=== PATIENT | female | born 1945 | race Caucasian/White ===

== ENCOUNTER → 2019-05-20 13:34 | Outpatient (BNVA) | payer MEDICARE, OTHER, SELFPAY | PROVIDERS: Family Provider Family Medicine; PCP Family Medicine; Visit Provider Internal Medicine Rheumatology | DX: L40.59 Other psoriatic arthropathy (principal); Z23 Encounter for immunization; G89.29 Other chronic pain; M15.9 Polyosteoarthritis, unspecified; Z79.899 Other long term (current) drug therapy; L40.0 Psoriasis vulgaris; M79.7 Fibromyalgia | CPT/HCPCS: 36415; G0008; 80053; 85007; 85027; 90471; 90662; 99214 ==

== ENCOUNTER → 2019-05-29 13:24 | Outpatient (BNVA) | payer MEDICARE, OTHER, SELFPAY | PROVIDERS: Family Provider Family Medicine; PCP Family Medicine; Visit Provider Nurse Practitioner Family | DX: R35.0 Frequency of micturition (principal); H61.20 Impacted cerumen, unspecified ear; N30.00 Acute cystitis without hematuria | CPT/HCPCS: 81003; 87077; 87086; 87186 ==

== ENCOUNTER → 2019-09-15 13:25 | Outpatient (BNVA) | payer MEDICARE, OTHER, SELFPAY | PROVIDERS: Family Provider Family Medicine; PCP Family Medicine; Visit Provider Internal Medicine Rheumatology | DX: Z79.899 Other long term (current) drug therapy (principal); M19.90 Unspecified osteoarthritis, unspecified site | CPT/HCPCS: 80076; 82565; 85025; 85651; 86140; 86480; 86704; 86803; 87340 ==

== ENCOUNTER → 2019-10-30 13:45 | Outpatient (BNVA) | payer MEDICARE, OTHER, SELFPAY | PROVIDERS: Family Provider Family Medicine; PCP Family Medicine; Visit Provider Family Medicine | DX: D64.9 Anemia, unspecified (principal); E11.620 Type 2 diabetes mellitus with diabetic dermatitis; L30.4 Erythema intertrigo | CPT/HCPCS: 83036; 85025 ==

== ENCOUNTER → 2019-11-27 11:55 | Outpatient (BNVA) | payer MEDICARE, OTHER, SELFPAY | PROVIDERS: Family Provider Family Medicine; PCP Family Medicine; Visit Provider Family Medicine | DX: D64.9 Anemia, unspecified (principal); E11.620 Type 2 diabetes mellitus with diabetic dermatitis; E66.01 Morbid (severe) obesity due to excess calories | CPT/HCPCS: 85025 ==

== ENCOUNTER → 2020-01-21 15:49 | Outpatient (BNVA) | payer MEDICARE, OTHER, SELFPAY | PROVIDERS: Family Provider Family Medicine; PCP Family Medicine; Visit Provider Family Medicine | DX: M06.09 Rheumatoid arthritis without rheumatoid factor, multiple sites (principal); Z11.59 Encounter for screening for other viral diseases; Z79.899 Other long term (current) drug therapy | CPT/HCPCS: 36415; 80053; 84550; 85025; 86704; 86803; 87340 ==

== ENCOUNTER → 2020-03-08 14:30 | Outpatient (BNVA) | payer MEDICARE, OTHER, SELFPAY | PROVIDERS: Family Provider Family Medicine; PCP Family Medicine; Visit Provider Internal Medicine Rheumatology | DX: L40.50 Arthropathic psoriasis, unspecified (principal); D64.9 Anemia, unspecified; Z79.899 Other long term (current) drug therapy; E66.01 Morbid (severe) obesity due to excess calories; J84.9 Interstitial pulmonary disease, unspecified; L40.0 Psoriasis vulgaris; M19.90 Unspecified osteoarthritis, unspecified site; Z68.41 Body mass index [BMI] 40.0-44.9, adult; M79.7 Fibromyalgia; M81.0 Age-related osteoporosis without current pathological fracture | CPT/HCPCS: 99214 ==

== ENCOUNTER 2020-03-11 18:31 | Inpatient (IN) | payer MEDICARE, OTHER, SELFPAY ==
[2020-03-11] VITALS (8 sets, daily range): BP systolic 127–164; BP diastolic 59–130; PULSE 65–83; RESP 16–18; TEMP 36.3–36.9; O2SAT 18–100; BMI 41.6
--- NOTE | 2020-03-11 19:14 | XR_ITS ---
WS: [id number] Exam: XR chest 1V portable [id number] Date/Time of Exam: 03/11/2020 7:24 PM Reason For Exam: GI bleed Comparison 08/22/2017. There are mild infiltrates in the middle and lower lung zones bilaterally suspicious for pneumonia. T he heart is top limits of normal size. Hiatal hernia noted. The lungs are fully expanded. No pleural effusions. The mediastinum and bony thorax are unremarkable. XR/XR chest 1V portable [id number] IMPRESSION: 1. Mild infiltrates in the mid and lower lung zones bilaterally suspicious for pneumonia.
--- NOTE | 2020-03-11 19:35 | CTR_ITS ---
PROCEDURE INFORMATION: Exam: CT Angiography Abdomen and Pelvis With Contrast Exam date and time: 03/11/2020 8:31 PM Age: 74 years old Clinical indication: Abdominal pain; Localized; Left lower quadrant (llq); Prior surgery; Surgery type: Appy, gb, hyst; Additional info: Gi bleed TECHNIQUE: Imaging protocol: Computed tomographic angiography of the abdomen and pelvis with intravenous contrast material. 3D rendering (Not supervised by radiologist): MIP and/or 3D reconstructed images were created by the technologist. Radiation optimization: All CT scans at this facility use at least one of these dose optimization techniques: automated exposure control; mA and/or kV adjustment per patient size (includes targeted exams where dose is matched to clinical indication); or iterative reconstruction. Contrast material: VISI 320; Contrast volume: 95 ml; Contrast route: INTRAVENOUS (IV); COMPARISON: CT abdomen pelvis w con* [id number] 01/16/2017 12:31 PM RADIATION DOSE METRICS: Total DLP (mGy-cm): 1614.21 FINDINGS: Lungs: There are moderate emphysematous changes. Unchanged moderate interstitial fibrosis. There is mild peripheral honeycombing in the lung bases. There is mild ground-glass opacity in the lung bases less prominent than the prior exam compatible with improving pneumonitis or mild interstitial CHF. Heart: The heart is enlarged. Mediastinal space: A large hiatal hernia is present. Aorta: The aorta demonstrates mild atherosclerotic calcification. There is no aortic aneurysm. Celiac trunk and mesenteric arteries: No occlusion or significant stenosis. Renal arteries: No occlusion or significant stenosis. Right iliac arteries: No occlusion or significant stenosis. Left iliac arteries: No occlusion or significant stenosis. Liver: No mass. Gallbladder and bile ducts: There has been a cholecystectomy. There is no common bile duct dilation. Pancreas: Unremarkable. No mass. No ductal dilation. Spleen: Unremarkable. No splenomegaly. Adrenals: Unremarkable. No mass. Kidneys and ureters: There is no evidence of hydronephrosis. There is a nonobstructive 4 mm calculus midpole right kidney. Stomach and bowel: There is no evidence of intestinal perforation or obstruction. Moderate diverticulosis is present in the distal colon. No active GI bleed or extravasation of contrast is identified. There is no evidence of colitis/diverticulitis. Appendix: There has been an appendectomy. Intraperitoneal space: Unremarkable. No free air. No significant fluid collection. Lymph nodes: There is unchanged adenopathy in the azagoesophageal recess with a lymph node measuring 1.7 cm in short axis image 19. Urinary bladder: The bladder is decompressed. Reproductive: There has been a hysterectomy. Bones/joints: There are moderate degenerative changes in the spine and pelvis. No acute abnormality. Soft tissues: Unremarkable. CT/CT angio abdomen pelvis [id number] IMPRESSION: 1. No active GI bleed or extravasation of contrast is identified. 2. No bowel thickening or inflammatory changes. No acute abnormality. Radiation Dose CTDIVOL = (mGy): DLP = 1614.21 (mGy-cm)
--- NOTE | 2020-03-11 19:40 | W.ED.GIBLEED ---
HPI - GI Bleed General: Chief complaint: GI Bleed Stated complaint: blood hemoglobin 4% Time Seen by Provider: 03/11/20 19:17 Source: patient Mode of arrival: ambulatory Limitations: no limitations History of Present Illness: HPI Narrative: Patient has noticed melena stools for about 4 or 5 months now and today she noticed some red streaks in her stool. She has been feeling gradually weaker and weaker with loss of energy and she states that her park interpreter asked her to get a CBC done today as she has had a hemoglobin trending down. In her PCPs office her hemoglobin was 4.9 and she was sent to the emergency department to be seen. The patient has vague abdominal pain, no nausea or vomiting. She denies any fever. No chest pain. She has a history of congestive heart failure. MD complaint: blood streaked stool Associated symptoms: Reports abdominal pain; Denies chills, fever(s), headache(s), nausea, rash or vomiting Review of Systems General: Reports: 10 or more systems reviewed and unremarkable except in HPI and below Const: Denies: fever(s), chills or body aches Eyes: Denies: change in vision or blurry vision ENMT: Denies: throat pain, enlarged tonsils, odynophagia, hoarseness, mouth pain or swelling of lips/tongue Card: Reports: swelling of feet/ankles and dyspnea on exertion; Denies: palpitations, irregular heart rhythm or edema Resp: Denies: dyspnea, productive cough or non-productive cough GI: Reports: abdominal pain and hematochezia; Denies: nausea, vomiting, hematemesis or coffee ground emesis : Denies: flank pain, difficulty voiding, dysuria, urinary frequency, urinary urgency or urinary hesitancy Musc: Denies: neck pain, back pain or extremity swelling Skin/Breast: Denies: rash, pruritus or erythema Neuro: Denies: headache(s), numbness in extremities or weakness in extremities Endo: Denies: polyuria, polydipsia or tired all the time PFSH ED PFSH: Medical History Annular psoriasis Fibromyalgia High risk medication use ILD (interstitial lung disease) Immunization counseling Morbid obesity Psoriatic arthritis Rheumatoid arthritis without rheumatoid factor, multiple sites Surgical History H/O arthroscopy of knee right knee 12/2012 H/O: hysterectomy Hx of bilateral cataract extraction with prosthetic lens insertion Family History Other CAD (coronary artery disease) Cancer Chronic kidney disease (CKD) Diabetes Hypertension Rheumatoid arthritis Denies family history of Systemic lupus erythematosus (SLE) in adult Stroke Social History Smoking and tobacco status: never smoked Marital status: / History of recent travel: No Physical Exam Const: COMMON NORMALS: no acute distress, average body habitus, patient oriented x3, no limitations, healthy appearing, alert and well nourished HENMT: COMMON NORMALS: normocephalic, atraumatic and moist oral mucous membranes HEAD & SCALP: normocephalic and atraumatic Eye: COMMON NORMALS: Equal, round and reactive pupils present, EOMs intact bilaterally, conjunctivae normal and no scleral icterus CONJUNCTIVA: Yes conjunctivae normal PUPIL: Yes Equal, round and reactive pupils present Neck/C-Spine: COMMON NORMALS: no meningeal signs and no JVD Resp: COMMON NORMALS: normal respiratory effort, No retractions, No use of accessory muscles, clear to auscultation bilaterally and percussion normal AUSCULTATION: clear to auscultation bilaterally PERCUSSION: percussion normal Cardio: COMMON NORMALS: no JVD, regular rate, regular rhythm, S1 normal heart sound present, S2 normal heart sound present, No gallops present (Cardio), No clicks present (Cardio), No murmurs present (Cardio), No rub (Cardio) and Peripheral pulses 2+ throughout RATE: regular rate RHYTHM: regular rhythm HEART SOUNDS: S1 normal heart sound present and S2 normal heart sound present PERIPHERAL PULSES: Peripheral pulses 2+ throughout GI: COMMON NORMALS: Normal to inspection, nondistended, normoactive bowel sounds present, Soft to palpation, non-tender, No hepatosplenomegaly present, no masses and no bruits PALPATION: Yes Soft to palpation and Yes No hepatosplenomegaly present RECTAL EXAM: heme positive stool Extremity: COMMON NORMALS: normal to inspection, full ROM, capillary refill normal, no calf tenderness and no pedal edema Neuro: COMMON NORMALS: patient oriented x3 SENSORIUM/ORIENTATION: Yes alert MENINGEAL SIGNS: Yes no meningeal signs Skin: COMMON NORMALS: no rashes or lesions noted, no wounds, turgor normal, no jaundice, no petechiae and no mottling GENERAL SKIN EXAM: no rashes or lesions noted, turgor normal and pallor Course ED course: Patient with blood loss anemia from GIB. She is admitted to the hospital for transfusion, further evaluation and management. Consultations: Consultation #1: Dr. Brown, hospitalist and he kindly accepted the patient to his service. Vital Signs: Vital signs: Vital Signs Temperature 97.3 F L 03/11/20 23:30 Pulse Rate 75 03/11/20 23:40 Respiratory Rate 17 03/11/20 23:40 Blood Pressure 136/59 03/11/20 23:40 Pulse Oximetry 96 03/11/20 23:40 MDM - GI Bleed MDM Narrative: Medical decision making narrative: Patient who has been having melena stool, and gradual worsening anemia has been feeling very weak and without energy. Hemoglobin done in her PCP's office shows severe anemia. Stool was heme positive. The patient however said she will not accept a colonoscopy due to a previous bad experience. She will be transfused in the hospital, and it was started in the ED. Medical Records: Attestation: I reviewed the patient's medical records. Lab Data: Attestation: I reviewed the patient's lab results. Labs: Lab Results 03/11/20 03/11/20 03/11/20 Range/Units 19:58 20:09 20:09 WBC 11.0 H (4.0-10.0) 10^3/ uL RBC 2.77 L (4.1-5.3) 10^6/u L Hgb 5.2 L* (11.5-15.3) g/dL Hct 20.1 L* (37.0-47.0) % MCV 72.6 L D (81-99) fL MCH 18.8 L (28.0-34.0) pg MCHC 25.9 L D (30.0-36.0) g/dL RDW 20.4 H (12.1-15.1) % Plt Count 430 H (130-400) 10^3/c mm MPV 10.5 H (7.4-10.4) fL Neut % (Auto) 70.1 % Lymph % (Auto) 21.5 % [place] % (Auto) 5.5 % Eos % (Auto) 1.9 % Baso % (Auto) 0.5 % Neut # (Auto) 7.73 H (1.8-7.7) 10^3/u L Lymph # (Auto) 2.4 (0.8-4.8) 10^3/u L [place] # (Auto) 0.6 (0.2-0.9) 10^3/u L Eos # (Auto) 0.2 (0.0-0.8) 10^3/u L Baso # (Auto) 0.1 (0.0-0.1) 10^3/u L Nucleated RBC % (a uto) 0.5 % Nucleated RBCs # 0.1 /100WBC PT 14.80 (12.1-14.9) SECO NDS INR 1.12 (0.8-1.2) APTT 32.0 (23.9-36.7) SECO NDS Sodium (136-145) mmol/L Potassium (3.5-5.1) mmol/L Chloride (98-107) mmol/L Carbon Dioxide (22-29) mmol/L Anion Gap (5-19) BUN (8-23) mg/dL Creatinine (0.5-0.9) mg/dL GFR Calculation Glucose (65-115) mg/dL Calculated Osmolal ity (285-295) mOsm/k g Calcium (8.5-10.5) mg/dL Total Bilirubin (0.15-1.2) mg/dL AST (0-32) U/L ALT (0-33) U/L Alkaline Phosphata se (35-105) IU/L Total Protein (6.6-8.7) g/dL Albumin (3.5-5.2) g/dL Globulin (1.3-4.6) g/dL Urine Color Yellow (Yellow) Urine Appearance Sl cloudy A (CLEAR) Urine pH 5 (5-7) Ur Specific Gravit y 1.025 (1.005-1.030) Urine Protein Neg (Negative) Urine Glucose (UA) Norm (Normal) Urine Ketones Negative (Negative) Urine Blood Neg (Negative) Urine Nitrate Positive H (Negative) Urine Bilirubin Neg (Negative) Urine Urobilinogen Neg (Negative) mg/dL Ur Leukocyte Anahi ase 1+ H (Negative) Urine RBC 0-4 H (0-2) /hpf Urine WBC 25-40 H (0-5) /hpf Ur Squamous Epith Cells 15-25 H (0-5) /hpf Amorphous Sediment Not Reportable Urine Bacteria 4+ H (NONE) /hpf Blood Type Rho(D) Type Antibody Screen Crossmatch 03/11/20 03/11/20 Range/Units 20:09 20:09 WBC (4.0-10.0) 10^3/ uL RBC (4.1-5.3) 10^6/u L Hgb (11.5-15.3) g/dL Hct (37.0-47.0) % MCV (81-99) fL MCH (28.0-34.0) pg MCHC (30.0-36.0) g/dL RDW (12.1-15.1) % Plt Count (130-400) 10^3/c mm MPV (7.4-10.4) fL Neut % (Auto) % Lymph % (Auto) % [place] % (Auto) % Eos % (Auto) % Baso % (Auto) % Neut # (Auto) (1.8-7.7) 10^3/u L Lymph # (Auto) (0.8-4.8) 10^3/u L [place] # (Auto) (0.2-0.9) 10^3/u L Eos # (Auto) (0.0-0.8) 10^3/u L Baso # (Auto) (0.0-0.1) 10^3/u L Nucleated RBC % (a uto) % Nucleated RBCs # /100WBC PT (12.1-14.9) SECO NDS INR (0.8-1.2) APTT (23.9-36.7) SECO NDS Sodium 137 (136-145) mmol/L Potassium 4.2 (3.5-5.1) mmol/L Chloride 100 (98-107) mmol/L Carbon Dioxide 25 (22-29) mmol/L Anion Gap 16.2 (5-19) BUN 12 (8-23) mg/dL Creatinine 0.7 (0.5-0.9) mg/dL GFR Calculation Not Reportable Glucose 128 H (65-115) mg/dL Calculated Osmolal ity 285 (285-295) mOsm/k g Calcium 9.3 (8.5-10.5) mg/dL Total Bilirubin 0.2 (0.15-1.2) mg/dL AST 11 (0-32) U/L ALT 8 (0-33) U/L Alkaline Phosphata se 98 (35-105) IU/L Total Protein 6.9 (6.6-8.7) g/dL Albumin 3.6 (3.5-5.2) g/dL Globulin 3.3 (1.3-4.6) g/dL Urine Color (Yellow) Urine Appearance (CLEAR) Urine pH (5-7) Ur Specific Gravit y (1.005-1.030) Urine Protein (Negative) Urine Glucose (UA) (Normal) Urine Ketones (Negative) Urine Blood (Negative) Urine Nitrate (Negative) Urine Bilirubin (Negative) Urine Urobilinogen (Negative) mg/dL Ur Leukocyte Anahi ase (Negative) Urine RBC (0-2) /hpf Urine WBC (0-5) /hpf Ur Squamous Epith Cells (0-5) /hpf Amorphous Sediment Urine Bacteria (NONE) /hpf Blood Type O Positive Rho(D) Type Positive Antibody Screen Negative Crossmatch See Detail Imaging Data^: Other CT: Attestation: I personally reviewed and interpreted this imaging study as follows: Radiologist's impression: [place] [address] CT Scan Report Signed Patient: Nanci Sandoval #: [id number] : 6Acct#:[id number] Age/Sex: 74 / FADM Date: 03/11/20 Loc: ERRoom/Bed: Attending Dr: Ordering Provider/Ordering MD: [place] [facility] [place] of Service: 03/11/20 Procedure(s): CT angio abdomen pelvis 79391 Accession Number(s): [id number] Report Number: [id number] PROCEDURE INFORMATION: Exam: CT Angiography Abdomen and Pelvis With Contrast Exam date and time: 03/11/2020 8:31 PM Age: 74 years old Clinical indication: Abdominal pain; Localized; Left lower quadrant (llq); Prior surgery; Surgery type: Appy, gb, hyst; Additional info: Gi bleed TECHNIQUE: Imaging protocol: Computed tomographic angiography of the abdomen and pelvis with intravenous contrast material. 3D rendering (Not supervised by radiologist): MIP and/or 3D reconstructed images were created by the technologist. Radiation optimization: All CT scans at this facility use at least one of these dose optimization techniques: automated exposure control; mA and/or kV adjustment per patient size (includes targeted exams where dose is matched to clinical indication); or iterative reconstruction. Contrast material: VISI 320; Contrast volume: 95 ml; Contrast route: INTRAVENOUS (IV); COMPARISON: CT abdomen pelvis w con* [id number] 01/16/2017 12:31 PM RADIATION DOSE METRICS: Total DLP (mGy-cm): 1614.21 FINDINGS: Lungs: There are moderate emphysematous changes. Unchanged moderate interstitial fibrosis. There is mild peripheral honeycombing in the lung bases. There is mild ground-glass opacity in the lung bases less prominent than the prior exam compatible with improving pneumonitis or mild interstitial CHF. Heart: The heart is enlarged. Mediastinal space: A large hiatal hernia is present. Aorta: The aorta demonstrates mild atherosclerotic calcification. There is no aortic aneurysm. Celiac trunk and mesenteric arteries: No occlusion or significant stenosis. Renal arteries: No occlusion or significant stenosis. Right iliac arteries: No occlusion or significant stenosis. Left iliac arteries: No occlusion or significant stenosis. Liver: No mass. Gallbladder and bile ducts: There has been a cholecystectomy. There is no common bile duct dilation. Pancreas: Unremarkable. No mass. No ductal dilation. Spleen: Unremarkable. No splenomegaly. Adrenals: Unremarkable. No mass. Kidneys and ureters: There is no evidence of hydronephrosis. There is a nonobstructive 4 mm calculus midpole right kidney. Stomach and bowel: There is no evidence of intestinal perforation or obstruction. Moderate diverticulosis is present in the distal colon. No active GI bleed or extravasation of contrast is identified. There is no evidence of colitis/diverticulitis. Appendix: There has been an appendectomy. Intraperitoneal space: Unremarkable. No free air. No significant fluid collection. Lymph nodes: There is unchanged adenopathy in the azagoesophageal recess with a lymph node measuring 1.7 cm in short axis image 19. Urinary bladder: The bladder is decompressed. Reproductive: There has been a hysterectomy. Bones/joints: There are moderate degenerative changes in the spine and pelvis. No acute abnormality. Soft tissues: Unremarkable. CT/CT angio abdomen pelvis [id number] IMPRESSION: 1. No active GI bleed or extravasation of contrast is identified. 2. No bowel thickening or inflammatory changes. No acute abnormality. Radiation Dose CTDIVOL = (mGy): DLP = 1614.21 (mGy-cm) Dictated By:Lidia Espino Signed By:Jim Espino Date/Time:03/11/202111 DD/ 10 Critical Care Time Critical Care Time: Critical Care Time: Yes Total Critical Care Time: 30 Attestation: This case had a high probability of a clinically significant, sudden, or life threatening deterioration of this patient's condition which required my full and direct attention, intervention and personal management. Discharge Plan Discharge Patient Disposition: Admitted As Inpatient Admit Provider: Abner Brown Clinical Impression: Blood loss anemia, Chronic lower GI bleeding Condition: Stable Interventions: ED Discharge Assessment Last Done: 03/11/20 23:40 ED Charges Last Done: 03/11/20 23:31 Coding Level of Care Code ED Broadcast Maintenance Technician for Chg Fwd Exam Comprehensive
[2020-03-11 20:42] LABS: Basophils # 0.1 10^3/uL (0.0-0.1); Basophils % 0.5 %; Eosinophils # 0.2 10^3/uL (0.0-0.8); Eosinophils % 1.9 %; Lymphocytes # 2.4 10^3/uL (0.8-4.8); Lymphocytes % 21.5 %; Mean Corpuscular HGB Conc 25.9 g/dL (30.0-36.0); Mean Corpuscular Hemoglobin 18.8 pg (28.0-34.0); Mean Corpuscular Volume 72.6 fL (81-99); Mean Platelet Volume 10.5 fL (7.4-10.4); Monocytes # 0.6 10^3/uL (0.2-0.9); Monocytes % 5.5 %; Neutrophils # 7.73 10^3/uL (1.8-7.7); Neutrophils % 70.1 %; Nucleated Red Blood Cells # 0.1 /100WBC; Nucleated Red Blood Cells % 0.5 %; Platelet Count 430 10^3/cmm (130-400); Red Blood Count 2.77 10^6/uL (4.1-5.3); Red Cell Distribution Width 20.4 % (12.1-15.1)
[2020-03-11 20:44] LABS: Alanine Aminotransferase 8 U/L (0-33); Albumin Level 3.6 g/dL (3.5-5.2); Alkaline Phosphatase 98 IU/L (35-105); Anion Gap 16.2 (5-19); Aspartate Amino Transferase 11 U/L (0-32); Blood Urea Nitrogen 12 mg/dL (8-23); Calcium 9.3 mg/dL (8.5-10.5); Carbon Dioxide 25 mmol/L (22-29); Chloride 100 mmol/L (98-107); Globulin 3.3 g/dL (1.3-4.6); Glucose 128 mg/dL (65-115); Osmolality Calculated 285 mOsm/kg (285-295); Potassium 4.2 mmol/L (3.5-5.1); Sodium 137 mmol/L (136-145); Total Bilirubin 0.2 mg/dL (0.15-1.2); Total Protein 6.9 g/dL (6.6-8.7)
[2020-03-11 20:45] LABS: Add Urine Microscopic? YES; Bilirubin Urine Neg (Negative); Blood Urine Neg (Negative); Glucose Urine UA Norm (Normal); Ketones Urine Negative (Negative); Leukocyte Esterase Urine 1+ (Negative); Nitrate Urine Positive (Negative); Protein Urine Neg (Negative); Specific Gravity, Urine 1.025 (1.005-1.030); Urine Color Yellow (Yellow); Urobilinogen Urine Neg (Negative); pH Urine 5 (5-7)
[2020-03-11 20:46] LABS: Add Urine Culture? No; Bacteria Urine 4+ /hpf; RBC Urine 0-4 /hpf (0-2); Squamous Epithelial Cell Urine 15-25 /hpf (0-5); WBC Urine 25-40 /hpf (0-5)
[2020-03-11 20:47] LABS: INR 1.12 (0.8-1.2)
[2020-03-11] MEDS: iodixanol 320 mg/mL 100mL Btl IV (20:50)
[2020-03-11 20:52] LABS: Hematocrit 20.1 % (37.0-47.0); Hemoglobin 5.2 g/dL (11.5-15.3)
--- NOTE | 2020-03-11 21:26 | P.HP_ITS ---
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 who has presented to the hospital with worsening anemia. Patient stated that she has had a colonoscopy about 2 years prior which she cannot recall if any abnormalities were noted. She stated that she has been feeling weak and slightly short of breath in the past few days. Has noted multiple dark stools. Denies any fever chills. Laboratory workup on arrival showed a WBC of 11.0, hemoglobin of 5.2, hematocrit 20.1 and a platelet count of 430. sodium 137, potassium 4.2, chloride 100, bicarb 25, BUN 12 and creatinine is 0.7. Glucose was 128. AST of 11, ALT of 8 and alkaline phosphatase of 98. imaging studies on arrival included a CT angio abdomen pelvis which did not show any acute abnormality. Review of Systems Narrative: all systems reviewed and found to be negative other than what is reported in HPI Medications/Allergies Home Medications Medication Instructions Recorded Confirmed Last Taken Type albuterol sulfate 2.5 mg INHALATION Q4H PRN 05/13/19 03/11/20 03/10/20 History blood sugar diagnostic #10 each 05/13/19 03/11/20 Unknown History lancets #50 each 05/13/19 03/11/20 Unknown History losartan 100 mg tablet 100 mg PO DAILY tab 05/13/19 03/11/20 03/11/20 History febuxostat 40 mg tablet 40 mg PO DAILY #30 tab 09/17/19 03/11/20 03/11/20 Rx gabapentin 100 mg capsule 100 mg PO .COMPLEX #150 cap 09/17/19 03/11/20 03/11/20 Rx melatonin 10 mg sublingual tablet 10 mg SUBLINGUAL DAILY 10/30/19 03/11/20 03/10/20 History ferrous sulfate 325 mg (65 mg 325 mg PO DAILY 11/12/19 03/11/20 03/11/20 History iron) tablet,delayed release cetirizine 10 mg capsule 10 mg PO DAILY #90 cap 11/13/19 03/11/20 03/11/20 Rx diltiazem HCl 120 mg 120 mg PO QAM #90 cap 11/13/19 03/11/20 03/11/20 Rx capsule,extended release 24 hr, controlled montelukast 10 mg tablet 10 mg PO DAILY #30 tab 11/13/19 03/11/20 03/11/20 Rx furosemide 80 mg tablet See Rx Instructions PO BID PRN #60 11/27/19 03/11/20 03/11/20 Rx tab potassium chloride 10 mEq 10 meq PO DAILY #30 tab 11/27/19 03/11/20 03/11/20 Rx tablet,extended release metformin 1,000 mg tablet 1,000 mg PO BID 30 Days #60 tab 01/16/20 03/11/20 03/11/20 Rx alendronate 70 mg tablet 70 mg PO .weekly 84 Days #15 tab 01/21/20 03/11/20 03/09/20 Rx apixaban 2.5 mg tablet 2.5 mg PO BID #60 tab 01/27/20 03/11/20 03/11/20 Rx venlafaxine 150 mg 150 mg PO DAILY #60 cap 02/11/20 03/11/20 03/11/20 Rx capsule,extended release 24 hr adalimumab 40 mg/0.8 mL 40 mg SUBCUT Q14D #2 each 03/08/20 03/11/20 Unknown Rx subcutaneous pen kit Allergies Allergy/AdvReac Type Severity Reaction Status Date / Time levomilnacipran Allergy hallucinati Verified 03/08/20 14:55 [From Fetzima] ons nitrofurantoin Allergy vomiting,abdominal Verified 03/08/20 14:55 pain,diarrhea pneumococcal 7-valent Allergy hives and Verified 03/08/20 14:55 conjugate to itching [From Prevnar] Sulfa (Sulfonamide Allergy confusion Verified 03/08/20 14:55 Antibiotics) PFSH Acute PFSH: Medical History (Reviewed 03/11/20 @ 19:43 by Jonathan Oliver MD, [facility] [place]) Annular psoriasis Fibromyalgia High risk medication use ILD (interstitial lung disease) Immunization counseling Morbid obesity Psoriatic arthritis Rheumatoid arthritis without rheumatoid factor, multiple sites Surgical History (Reviewed 03/11/20 @ 19:43 by Jonathan Oliver MD, [facility] [place]) H/O arthroscopy of knee right knee 12/2012 H/O: hysterectomy Hx of bilateral cataract extraction with prosthetic lens insertion Family History (Reviewed 03/11/20 @ 19:43 by Jonathan Oliver MD, [facility] [place]) Other CAD (coronary artery disease) Cancer Chronic kidney disease (CKD) Diabetes Hypertension Rheumatoid arthritis Denies family history of Systemic lupus erythematosus (SLE) in adult Stroke Social History (Reviewed 03/11/20 @ 19:43 by Jonathan Oliver MD, [facility] [place]) Smoking and tobacco status: never smoked Marital status: / History of recent travel: No Vitals/I&O/Wt Last Vital Signs Temp 98.0 F 03/12/20 01:45 Pulse 89 03/12/20 01:45 Resp 20 H 03/12/20 01:45 BP 146/68 03/12/20 01:45 Pulse Ox 99 03/12/20 01:45 03/11/20 03/11/20 03/12/20 14:59 22:59 06:59 Intake Total 50 / 50 Balance 50 / 50 Weight last 48 hrs Weight 120.656 kg Physical Exam Narrative: EXAM NARRATIVE: General-alert awake and oriented HEENT- grossly unremarkable Chest -clear to auscultation bilaterally CVS -regular rate rhythm no obvious murmurs Extremities- mild bilateral lower extremity edema Data : 03/11/20 20:09 03/11/20 20:09 A&P Assessment and plan (1) Blood loss anemia: Liikely secondary to GI bleed on Eliquis. Continue transfusion as ordered in emergency room of 2 units. Monitor H&H Q 6 hour. Transfuse if less than 7. patient refused any invasive procedures. Stated she had a colonoscopy and would not consider another 1. surgery was not consulted. Status: Acute (2) Chronic lower GI bleeding: Management as noted above Status: Acute (3) DVT (deep venous thrombosis): Last DVT 2 years prior. Has remained on eliquis which is not placed on hold. May have to consider IVC filter and remain of OAC. Status: Acute Attestations Medical Necessity Statement*: Due to profound anemia secondary to GI bleed on Eliquis requiring transfusion of PRBCs will likely require over 2 midnight stay in hospital for evaluation and treatment. Coding Level of Care Code Acute Furnace Utility Operator for Gregg Fwedna Diagnoses Blood loss anemia D50.0 Chronic lower GI bleeding K92.2 DVT (deep venous thrombosis) I82.409
[2020-03-11] MEDS: cefTRIAXone 1,000 MG in sodium chloride 0.9% (plus) 50 ML 100 MG IV (21:44)
[2020-03-12] VITALS (24 sets, daily range): BP systolic 108–178; BP diastolic 60–88; PULSE 72–89; RESP 12–20; TEMP 36.3–37; O2SAT 93–100
[2020-03-12] MEDS: pantoprazole 40 mg SDV IVP ×2 (04:56→17:30)
[2020-03-12] MEDS: sodium chloride 0.9% (100 ml) 100 ML (06:18)
[2020-03-12] MEDS: sodium chloride 0.9% 1,000 ML 75 ML IV ×2 (06:20→20:25)
[2020-03-12 07:37] LABS: Hematocrit 23.1 % (37.0-47.0)
[2020-03-12 07:48] LABS: Hemoglobin 6.4 g/dL (11.5-15.3)
[2020-03-12] MEDS: ferrous sulfate EC 325 mg Tablet PO ×2 (08:49→17:30)
[2020-03-12] MEDS: gabapentin 100 mg Capsule PO ×2 (08:49→12:07)
[2020-03-12] MEDS: venlafaxine ER (24HR) 150 mg Capsule PO (08:49)
[2020-03-12] MEDS: cetirizine 10 mg Tablet PO (08:49)
[2020-03-12] MEDS: montelukast sodium 10 mg Tablet PO (08:49)
--- NOTE | 2020-03-12 08:57 | P.PN_ITS ---
Subjective Subjective: Interval history: Feels less foggy today. Not as dizzy. Breathing okay. History reviewed and problem list updated. Of note patient takes Fosamax chronically. Last use of prednisone was so long ago she does not recall. 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 In light of significant drop in hemoglobin of late combined with the fact that hemoglobin did not recover as expected after 2 units of blood will need to hold anticoagulation. This could be an upper source or lower source. She will not consider an colonoscopy under any circumstance due to her experiences with prior colonoscopy a few years ago. If she continues to have evidence of ongoing bleeding she will reevaluate wh ether or not she would allow an EGD to be done. She does not wish to have invasive procedures if it is possible to avoid them. Reviewed the risk of stopping anticoagulation including redevelopment of a DVT or even other thromboembolic event. Reviewed the risk of continuing anticoagulation primarily that of ongoing bleeding and need for transfusion which carries its own risk. Also discussed holding Fosamax for a couple of weeks particularly if she does not have an EGD. What she saw on her stool yesterday was bright red streaks but she is honestly not sure if she has been having any melena. Medications: Reviewed: Yes Vitals/I&O/Wt Last Vital Signs Temp 97.9 F 03/12/20 07:35 Pulse 77 03/12/20 07:35 Resp 18 03/12/20 07:35 BP 108/61 03/12/20 07:35 Pulse Ox 96 03/12/20 07:35 03/11/20 03/12/20 03/12/20 22:59 06:59 14:59 Intake Total 750 / 750 Output Total 200 / 200 Balance 550 / 550 Weight last 48 hrs Weight 124.874 kg Weight 120.656 kg Physical Exam Const: OTHER: Alert, oriented x3, cooperative HENMT: OTHER: Normocephalic atraumatic, dry mucous membranes, pale mucosa Eye: OTHER: Pupils equally round and reactive to light, pale mucosa Neck/C-Spine: OTHER: Supple, large Resp: OTHER: Clear to auscultation bilaterally, no rales, rhonchi or wheezes noted, no accessory muscle use noted Cardio: OTHER: Regular rate and rhythm, no murmurs gallops or rubs. Distant heart sounds. 1+ pulses lower extremities. GI: OTHER: Abdomen soft, nontender, including in the epigastric area, nondistended with positive bowel sounds Extremity: NARRATIVE EXTREMITY EXAM: SCDs are in place. No pitting edema. No current calf tenderness. Neuro: OTHER: Face symmetric, speech clear, moves all extremities Psych: OTHER: Normal affect Skin: OTHER: Skin is pale, dry, some varicosities noted, a few minor sores but no acute rashes noted to the legs, arms, chest Data : 03/12/20 07:24 03/11/20 20:09 Other Labs: Laboratory Tests 08/13/18 05/20/19 09/15/19 13:37 15:00 13:25 Hgb 11.4 L 10.9 L 9.2 L 11/27/19 01/21/20 03/11/20 11:55 12:27 11:15 Hgb 8.1 L 7.4 L 4.9 L* 03/11/20 03/12/20 20:09 07:24 Hgb 5.2 L* 6.4 L* A&P Assessment and plan (1) Acute blood loss anemia: Status post transfusion of 2 units packed red blood cells. An additional unit has been ordered. She has chronic iron deficiency anemia/anemia of chronic inflammation on iron replacement. Acute loss source is presumed to be GI losses. Status: Acute (2) Acute GI bleeding: Could be upper particularly given that she is on chronic Fosamax. Cannot rule out a lower however with the bright red blood. Has had slow continual drop this year with recent acute decline prior to this admission. Status: Acute (3) Chronic anticoagulation: Been on Eliquis due to history of recurrent DVTs Status: Chronic (4) DVT (deep venous thrombosis): Status: Chronic Qualifiers: DVT location: lower extremity Affected thrombotic vein of extremity: unspecified vein of extremity Chronicity: chronic Laterality: unspecified laterality Qualified Code(s): I82.509 - Chronic embolism and thrombosis of unspecified deep veins of unspecified lower extremity (5) Osteoporosis: Chronically on Fosamax Status: Acute Qualifiers: Osteoporosis type: unspecified Presence of current pathological fracture: without current pathological fracture Qualified Code(s): M81.0 - Age- related osteoporosis without current pathological fracture (6) Type 2 diabetes mellitus: Chronically on Metformin and gabapentin Status: Chronic Qualifiers: Diabetes mellitus intermediate project manager insulin use: without assisted use Diabetes mellitus complication status: with neurologic complications Diabetes mellitus complication detail: with polyneuropathy Qualified Code(s): E11.42 - Type 2 diabetes mellitus with diabetic polyneuropathy (7) Hypertension: Chronically on diltiazem, losartan and has as needed Lasix for lower e xtremity edema which she takes several times a week usually Status: Chronic Qualifiers: Hypertension type: essential hypertension Qualified Code(s): I10 - Essential (primary) hypertension (8) ILD (interstitial lung disease): Chronically on oxygen at 3 L by nasal cannula and as needed breathing treatments Status: Chronic (9) Obstructive sleep apnea: Intermittent use of CPAP at night due to poor mask fitting and intolerance Status: Acute (10) Psoriatic arthritis: Chronically on biologic agent, chronically has prednisone but does not recall last use Status: Chronic (11) Fibromyalgia: Chronically on Effexor Status: Chronic (12) Morbid obesity due to excess calories: Status: Acute Additional A&P Information Abnormal urinalysis which was covered empirically with a dose of Rocephin in the ER, likely contamination with degree of epithelial cells present, no symptoms Clear liquid diet An additional unit of blood has been ordered to be transfused today New serial H&H If continued evidence of ongoing loss will reevaluate possibility of EGD with patient. She will not consider colonoscopy but is willing to consider if necessary EGD particularly if there is evidence of ongoing bleeding. Her preference is for noninvasive management Hold Eliquis Increase iron to twice daily Twice daily PPI Hold Fosamax, discussed with patient holding Fosamax 2 to 4 weeks depending on if we end up proceeding with EGD or not Sliding scale insulin for diabetes presently, home Metformin held secondary to CTA of the abdomen and pelvis which was done Resume diltiazem and losartan Monitor need for direct therapy particularly with transfusions Continue home oxygen, at home breathing treatments as needed CPAP at night if she will wear, does not know home settings I am not sure when she had her last dose of Biologics, nor is she. She was switched to Humira on March 08 but I cannot discern from notes that day if she received the injection or not. Continue Effexor Other medications such as cetirizine and Singulair as per usual home doses I have not continued any further antibiotics Plans were discussed with patient and she was given an opportunity to ask questions Supportive care otherwise Chronically on anticoagulation which has been held, SCDs have been ordered Anticipate discharge home. She lives on her children's property and has some help if she needs it. Full code was entered into her record by other providers. Based on some discussion that I had with her today will reevaluate this to ensure that is correct Attestations Medical Necessity Statement*: Requires ongoing inpatient stay due to continued significant anemia and need for additional transfusion. She requires close monitoring. Specific plans and other issues are as noted above. Coding Level of Care Code Acute Mixing Engineer for Chg Fwd Diagnoses Acute blood loss anemia D62 Acute GI bleeding K92.2 Chronic anticoagulation Z79.01 DVT (deep venous thrombosis) I82.509 DVT location: lower extremity Affected thrombotic vein of extremity: unspecified vein of extremity Chronicity: chronic Laterality: unspecified laterality Osteoporosis M81.0 Osteoporosis type: unspecified Presence of current pathological fracture: without current pathological fr acture Type 2 diabetes mellitus E11.42 Diabetes mellitus intermediate project manager insulin use: without assisted use Diabetes mellitus complication status: with neurologic complications Diabetes mellitus complication detail: with polyneuropathy Hypertension I10 Hypertension type: essential hypertension ILD (interstitial lung disease) J84.9 Obstructive sleep apnea G47.33 Psoriatic arthritis L40.50 Fibromyalgia M79.7 Morbid obesity due to excess calories E66.01
[2020-03-12] MEDS: sodium chloride 0.9% (100 ml) 100 ML 50 ML (09:24)
[2020-03-12 11:19] LABS: Iron 15 ug/dL (37-145); Percent Saturation 3.2 % (20-50); Total Iron Binding Capacity 468 mcg/dl; Unsaturated Iron Binding 453 ug/dL (112-347)
[2020-03-12 11:28] LABS: Glucose Point of Care 111 mg/dL (70-110)
--- NOTE | 2020-03-12 11:31 | PC.CHAP ---
Pastoral Care Encounter/Spiritual Assessment Type of Contact [] Declined sales assistant institutional sales visit [] Patient/Family/Request visit [] Outpatient visit [] Follow-up visit [] Physician referral [] Code/Alert [xx] Routine visit [] Staff referral [] Actively dying [] Patient sleeping [] Family support [] [] Out of room [] Palliative care [] [] Receiving care in room [] Pre-surgical visit [] Trauma [] Long length of stay [] ICU visit [] Other: Relational/Emotional Strength [xxx] Patient feels connected with others/family/visitors/staff [] Distress [] Loneliness/isolation [] Abandonment Spirituality of Patient [xx] Person of Kezia [xx] Attends Yarsanism of their Kezia [xx] Believes in Prayer [xx] Reads Bible or Jainism materials [] There are Spiritual issues to be addressed Java Sdet Interventions [xx] Prayer [xx] Active listening [xx] Non-anxious presence [] Spiritual/emotional support [] Crisis/trauma care [] Spiritual counseling [] Bereavement support [] Provided bereavement packet [] Provided Bible/devotional materials [] Provided toy/stuffed animal, coloring book to patient or family member [] Provided Communion [] Anointing/[place] [] Salvation [xx] Completed spiritual assessment [] Other: Impact on Illness or Injury [] Angry [] Fearful [] Anxious [] Often cries [] Exhaustion [xx] Unable to work [xx] Unable to attend shinto [xx] Unable to walk/stand [] Unable to read [xx] Unable to drive [] Unable to eat/drink [] Unable to sleep [xx] Unable to be with family [] Patient intubated [] Other: Summary Elderly disabled lady who stayed indoors too much because of Covid-19 and lost energy and muscle tone. She waited to long to see Doctor due to fear of Covid-19. She lives alone in small handicap apartment that does not allow much space for physical activity and it got the best of her. All this per her statements. She hopes to go home soon and plans to get more physical activity at home. Time spent with patient 5 minutes Java Sdet Monique Anthony
[2020-03-12] MEDS: losartan 50 mg Tablet 100 MG PO (12:07)
[2020-03-12] MEDS: dilTIAZem ER (24HR) 120 mg Capsule PO (12:08)
[2020-03-12 14:14] LABS: Hematocrit 24.8 % (37.0-47.0); Hemoglobin 7.1 g/dL (11.5-15.3)
--- NOTE | 2020-03-12 16:12 | PM.GBL ---
Discharge Providers Date of Admission: 03/11/20 22:20 Date of Discharge: March 12, 2020 Attending Provider at Admission: Abner Brown Attending Provider at Discharge: Aisha Gardiner MD Primary Care Provider: Lincoln Hobbs DO Diagnoses at Discharge Discharge Diagnosis (1) Acute blood loss anemia: Status: Acute (2) Acute GI bleeding: Status: Acute (3) Chronic anticoagulation: Status: Chronic Permanent Problem Comment: eliquis (4) DVT (deep venous thrombosis): Status: Chronic Qualifiers: DVT location: lower extremity Affected thrombotic vein of extremity: unspecified vein of extremity Chronicity: chronic Laterality: unspecified laterality Qualified Code(s): I82.509 - Chronic embolism and thrombosis of unspecified deep veins of unspecified lower extremity (5) Osteoporosis: Status: Acute Permanent Problem Comment: on fosamax Qualifiers: Osteoporosis type: unspecified Presence of current pathological fracture: without current pathological fracture Qualified Code(s): M81.0 - Age-related osteoporosis without current pathological fracture (6) Type 2 diabetes mellitus: Status: Chronic Qualifiers: Diabetes mellitus halfway insulin use: without remote computer terminal operator use Diabetes mellitus complication status: with neurologic complications Diabetes mellitus complication detail: with polyneuropathy Qualified Code(s): E11.42 - Type 2 diabetes mellitus with diabetic polyneuropathy (7) Hypertension: Status: Chronic Permanent Problem Comment: on diltiazem and losartan Qualifiers: Hypertension type: essential hypertension Qualified Code(s): I10 - Essential (primary) hypertension (8) ILD (interstitial lung disease): Status: Chronic Permanent Problem Comment: 3L BNC continous (9) Obstructive sleep apnea: Status: Acute Permanent Problem Comment: intermittent cpap use (10) Psoriatic arthritis: Status: Chronic Permanent Problem Comment: on biologic (11) Fibromyalgia: Status: Chronic (12) Morbid obesity due to excess calories: Status: Acute Reason for Visit/Brief History Reason for Visit: blood hemoglobin 4% Discharge Data Data Completed and Pending Completed Studies During Hospitalization Category Date Time Status CT angio abdomen pelvis [id number] Urgent Cat Scan 03/11/20 19:35 Completed XR chest 1V portable [id number] Urgent Exams 03/11/20 19:14 Completed Pending at discharge Category Date Time Status Complete Blood Count w/Auto AM LABS Lab 03/13/20 04:00 Ordered HH [Hemoglobin and Hematocrit] Q6H Lab 03/12/20 19:30 Ordered HH [Hemoglobin and Hematocrit] Q6H Lab 03/13/20 01:30 Ordered Leukocyte Reduced RBC Stat Lab 03/11/20 20:09 Results Type and Screen Stat Lab 03/11/20 20:09 Results Labs from last 24 hours 03/12/20 03/12/20 03/12/20 13:50 11:25 07:24 WBC RBC Hgb 7.1 L 6.4 L* Hct 24.8 L 23.1 L MCV MCH MCHC RDW Plt Count MPV Neut % (Auto) Lymph % (Auto) Wheeler % (Auto) Eos % (Auto) Baso % (Auto) Neut # (Auto) Lymph # (Auto) Wheeler # (Auto) Eos # (Auto) Baso # (Auto) Nucleated RBC % (auto) Nucleated RBCs # PT INR APTT Sodium Potassium Chloride Carbon Dioxide Anion Gap BUN Creatinine GFR Calculation Glucose POC Glucose 111 Calculated Osmolality Calcium Iron TIBC % Saturation Unsat Iron Binding Total Bilirubin AST ALT Alkaline Phosphatase Total Protein Albumin Globulin Urine Color Urine Appearance Urine pH Ur Specific Norman Urine Protein Urine Glucose (UA) Urine Ketones Urine Blood Urine Nitrate Urine Bilirubin Urine Urobilinogen Ur Leukocyte Esterase Urine RBC Urine WBC Ur Squamous Epith Cells Amorphous Sediment Urine Bacteria Blood Type Rho(D) Type Antibody Screen Crossmatch 03/11/20 03/11/20 03/11/20 20:09 20:09 20:09 WBC RBC Hgb Hct MCV MCH MCHC RDW Plt Count MPV Neut % (Auto) Lymph % (Auto) Wheeler % (Auto) Eos % (Auto) Baso % (Auto) Neut # (Auto) Lymph # (Auto) Wheeler # (Auto) Eos # (Auto) Baso # (Auto) Nucleated RBC % (auto) Nucleated RBCs # PT INR APTT Sodium 137 Potassium 4.2 Chloride 100 Carbon Dioxide 25 Anion Gap 16.2 BUN 12 Creatinine 0.7 GFR Calculation Not Reportable Glucose 128 H POC Glucose Calculated Osmolality 285 Calcium 9.3 Iron 15 L TIBC 468 % Saturation 3.2 L Unsat Iron Binding 453 H Total Bilirubin 0.2 AST 11 ALT 8 Alkaline Phosphatase 98 Total Protein 6.9 Albumin 3.6 Globulin 3.3 Urine Color Urine Appearance Urine pH Ur Specific Norman Urine Protein Urine Glucose (UA) Urine Ketones Urine Blood Urine Nitrate Urine Bilirubin Urine Urobilinogen Ur Leukocyte Esterase Urine RBC Urine WBC Ur Squamous Epith Cells Amorphous Sediment Urine Bacteria Blood Type O Positive Rho(D) Type Positive Antibody Screen Negative Crossmatch See Detail 03/11/20 03/11/20 03/11/20 20:09 20:09 19:58 WBC 11.0 H RBC 2.77 L Hgb 5.2 L* Hct 20.1 L* MCV 72.6 L D MCH 18.8 L MCHC 25.9 L D RDW 20.4 H Plt Count 430 H MPV 10.5 H Neut % (Auto) 70.1 Lymph % (Auto) 21.5 Wheeler % (Auto) 5.5 Eos % (Auto) 1.9 Baso % (Auto) 0.5 Neut # (Auto) 7.73 H Lymph # (Auto) 2.4 Wheeler # (Auto) 0.6 Eos # (Auto) 0.2 Baso # (Auto) 0.1 Nucleated RBC % (auto) 0.5 Nucleated RBCs # 0.1 PT 14.80 INR 1.12 APTT 32.0 Sodium Potassium Chloride Carbon Dioxide Anion Gap BUN Creatinine GFR Calculation Glucose POC Glucose Calculated Osmolality Calcium Iron TIBC % Saturation Unsat Iron Binding Total Bilirubin AST ALT Alkaline Phosphatase Total Protein Albumin Globulin Urine Color Yellow Urine Appearance Sl cloudy A Urine pH 5 Ur Specific Norman 1.025 Urine Protein Neg Urine Glucose (UA) Norm Urine Ketones Negative Urine Blood Neg Urine Nitrate Positive H Urine Bilirubin Neg Urine Urobilinogen Neg Ur Leukocyte Esterase 1+ H Urine RBC 0-4 H Urine WBC 25-40 H Ur Squamous Epith Cells 15-25 H Amorphous Sediment Not Reportable Urine Bacteria 4+ H Blood Type Rho(D) Type Antibody Screen Crossmatch Vitals Last Vital Signs Temp 97.5 F L 03/12/20 16:00 Pulse 72 03/12/20 16:00 Resp 18 03/12/20 16:00 BP 142/82 03/12/20 16:00 Pulse Ox 94 03/12/20 16:00 Physical Exam Const: COMMON NORMALS: no acute distress, average body habitus, patient oriented x3, no limitations, healthy appearing, alert and well nourished HENMT: COMMON NORMALS: normocephalic, atraumatic, hearing grossly normal bilaterally, external ears normal, EAC's normal, TM's normal bilaterally, Normal external nose present, Normal nasal mucous membranes and turbinates present, moist oral mucous membranes, oropharynx normal, dentition normal and gingiva normal HEAD & SCALP: normocephalic and atraumatic NOSE: Normal external nose present and Normal nasal mucous membranes and turbinates present EXTERNAL EAR: Yes external ears normal EXTERNAL AUDITORY CANAL: EAC's normal TYMPANIC MEMBRANE: TM's normal bilaterally Neuro: COMMON NORMALS: patient oriented x3 SENSORIUM/ORIENTATION: Yes alert Discharge Plan Discharge Condition: Stable Prescriptions: No Action losartan 100 mg tablet 100 mg PO DAILY RF: 0 albuterol sulfate 2.5 mg /3 mL (0.083 %) solution for nebulization 2.5 mg INHALATION Q4H PRN (Reason: Shortness Of Breath) RF: 0 (DME) lancets Misc See Rx Instructions .ROUTE .MEDSUPPLY Qty: 50 RF: 0 (DME) blood sugar diagnostic Strip See Rx Instructions .ROUTE .MEDSUPPLY Qty: 10 RF: 0 alendronate [Fosamax] 70 mg tablet 70 mg PO .weekly 84 Days Qty: 15 RF: 4 Humira Pen 40 mg/0.8 mL pen injector kit 40 mg SUBCUT Q14D Qty: 2 RF: 3 febuxostat [Uloric] 40 mg tablet 40 mg PO DAILY Qty: 30 RF: 3 gabapentin 100 mg capsule 100 mg PO .COMPLEX Qty: 150 RF: 3 melatonin 10 mg tablet, sublingual 10 mg SUBLINGUAL DAILY RF: 0 ferrous sulfate 325 mg (65 mg iron) tablet,delayed release (DR/EC) 325 mg PO DAILY RF: 0 All Day Allergy (cetirizine) 10 mg capsule 10 mg PO DAILY Qty: 90 RF: 3 diltiazem HCl 120 mg capsule,ext.rel 24h degradable 120 mg PO QAM Qty: 90 RF: 3 montelukast 10 mg tablet 10 mg PO DAILY Qty: 30 RF: 6 furosemide 80 mg tablet See Rx Instructions PO BID PRN (Reason: edema) Qty: 60 RF: 11 potassium chloride 10 mEq tablet extended release 10 meq PO DAILY Qty: 30 RF: 11 metformin 1,000 mg tablet 1,000 mg PO BID 30 Days Qty: 60 RF: 3 Eliquis 2.5 mg tablet 2.5 mg PO BID Qty: 60 RF: 11 venlafaxine 150 mg capsule,extended release 24hr 150 mg PO DAILY Qty: 60 RF: 11
[2020-03-12 17:04] LABS: Glucose Point of Care 125 mg/dL (70-110)
[2020-03-12 19:48] LABS: Hematocrit 25.3 % (37.0-47.0); Hemoglobin 7.2 g/dL (11.5-15.3)
[2020-03-12 21:25] LABS: Glucose Point of Care 109 mg/dL (70-110)
[2020-03-12] MEDS: gabapentin 300 mg Capsule PO (22:32)
[2020-03-13] VITALS (12 sets, daily range): BP systolic 113–187; BP diastolic 64–82; PULSE 66–89; RESP 16–24; TEMP 36.4–37.1; O2SAT 92–99
[2020-03-13] MEDS: pantoprazole 40 mg SDV IVP (04:00)
[2020-03-13 05:47] LABS: Basophils # 0.1 10^3/uL (0.0-0.1); Basophils % 0.7 %; Eosinophils # 0.3 10^3/uL (0.0-0.8); Eosinophils % 4.4 %; Hematocrit 25.2 % (37.0-47.0); Lymphocytes # 2.3 10^3/uL (0.8-4.8); Lymphocytes % 29.7 %; Mean Corpuscular HGB Conc 27.8 g/dL (30.0-36.0); Mean Corpuscular Hemoglobin 21.5 pg (28.0-34.0); Mean Corpuscular Volume 77.5 fL (81-99); Mean Platelet Volume 10.8 fL (7.4-10.4); Monocytes # 0.6 10^3/uL (0.2-0.9); Monocytes % 7.7 %; Neutrophils # 4.33 10^3/uL (1.8-7.7); Nucleated Red Blood Cells % 0.3 %; Platelet Count 320 10^3/cmm (130-400); Red Blood Count 3.25 10^6/uL (4.1-5.3); Red Cell Distribution Width 21.9 % (12.1-15.1); White Blood Count 7.6 10^3/uL (4.0-10.0)
[2020-03-13] MEDS: sodium chloride 0.9% 1,000 ML 75 ML IV (06:36)
[2020-03-13] MEDS: dilTIAZem ER (24HR) 120 mg Capsule PO (06:36)
[2020-03-13 07:16] LABS: Glucose Point of Care 111 mg/dL (70-110)
[2020-03-13] MEDS: losartan 50 mg Tablet 100 MG PO (08:29)
[2020-03-13] MEDS: cetirizine 10 mg Tablet PO (08:29)
[2020-03-13] MEDS: montelukast sodium 10 mg Tablet PO (08:29)
[2020-03-13] MEDS: venlafaxine ER (24HR) 150 mg Capsule PO (08:29)
[2020-03-13] MEDS: gabapentin 100 mg Capsule PO ×2 (08:29→11:29)
[2020-03-13] MEDS: ferrous sulfate EC 325 mg Tablet PO (08:29)
--- NOTE | 2020-03-13 10:58 | PC.NURSE ---
Fall Pt in bathroom after shower with staff. Pt leaned forward to dry off, upon standing back up, pt kept going backwards and slid down wall to the floor. Pt denies any complaints of pain. No redness or open areas noted. Assisted patient up and back to bed. Patient care nurse Rosita notified. Dr Jaime notified.
[2020-03-13 11:02] LABS: Glucose Point of Care 113 mg/dL (70-110)
--- NOTE | 2020-03-13 13:31 | PM.DCS ---
Discharge Providers Date of Admission: 03/11/20 22:20 Date of Discharge: March 13, 2020 Attending Provider at Admission: Abner Brown Attending Provider at Discharge: Brando Jaime MD Primary Care Provider: Lincoln Hobbs DO Diagnoses at Discharge Discharge Diagnosis (1) Acute blood loss anemia: Status: Acute Permanent problem details: Patient had only 1 bowel movement while in hospital. Refused any endoscopy for evaluation. Transfusion was allowed. She received 4 units. (2) Acute GI bleeding: Status: Acute (3) Chronic anticoagulation: Status: Chronic Permanent problem details: Eliquis discontinued secondary to GI bleeding and severe anemia (4) DVT (deep venous thrombosis): Status: Chronic Qualifiers: DVT location: lower extremity Affected thrombotic vein of extremity: unspecified vein of extremity Chronicity: chronic Laterality: unspecified laterality Qualified Code(s): I82.509 - Chronic embolism and thrombosis of unspecified deep veins of unspecified lower extremity (5) Osteoporosis: Status: Acute Permanent problem details: Fosamax discontinued in case this is contributing to bleeding with GI tract irritation Qualifiers: Osteoporosis type: unspecified Presence of current pathological fracture: without current pathological fracture Qualified Code(s): M81.0 - Age-related osteoporosis without current pathological fracture (6) Type 2 diabetes mellitus: Status: Chronic Qualifiers: Diabetes mellitus intermission coordinator insulin use: without intermission coordinator use Diabetes mellitus complication status: with neurologic complications Diabetes mellitus complication detail: with polyneuropathy Qualified Code(s): E11.42 - Type 2 diabetes mellitus with diabetic polyneuropathy (7) Hypertension: Status: Chronic Permanent problem details: on diltiazem and losartan Qualifiers: Hypertension type: essential hypertension Qualified Code(s): I10 - Essential (primary) hypertension (8) ILD (interstitial lung disease): Status: Chronic Permanent problem details: 3L BNC continous (9) Obstructive sleep apnea: Status: Acute Permanent problem details: intermittent cpap use (10) Psoriatic arthritis: Status: Chronic Permanent problem details: on biologic (11) Fibromyalgia: Status: Chronic (12) Morbid obesity due to excess calories: Status: Acute Reason for Visit Reason for Visit: blood hemoglobin 4% Hospital Course Hospital Course: Nanci is a 74-year-old white female who presented to the hospital with fatigue and worsening anemia. Initial hemoglobin was 4.9. Stool was heme positive. She had seen bright red blood on occasion. An extensive discussion was held with the patient regarding doing endoscopy to look for cause. She refused any kind of invasive procedure, and reported she was allow natural . However, she would like transfused. She was given 3 units of packed red blood cells. While in the hospital she reports only 1 bowel movement, with no bright red blood. Hemoglobin was 7.0 on March 13, and it was elected to transfuse her 1 more unit prior to discharge in case further bleeding occurred. She was taken off Eliquis after risks and benefits were discussed. She was not on any antiplatelets. Bisphosphonate was discontinued. She will be maintained on Protonix 40 mg twice daily. It was thought she could discharge home. She had received a total of 4 units packed red blood cells. Hemoglobin was 7 prior to the transfusion of the last unit. She was instructed to follow-up with her primary care provider in 1 to 3 days, and have a CBC at that time. Other studies done while hospitalized included an abdominal pelvis CTA which demonstrated no obvious active GI bleed or acute abnormality. Physical Exam Narrative: EXAM NARRATIVE: General exam is no apparent distress Cardiovascular regular rate and rhythm without murmur Lungs clear Abdomen is soft with positive bowel sounds Extremities no cyanosis clubbing or edema Discharge Data Data Completed and Pending: Completed Studies During Hospitalization Category Date Time Status CT angio abdomen pelvis [id number] Urgen t Cat Scan 03/11/20 19:35 Completed XR chest 1V ana lilia ble [id number] Urgent Exams 03/11/20 19:14 Completed Pending at discharge Category Date Time Status Leukocyte Reduced RBC Stat Lab 03/11/20 20:09 Results Type and Screen S tat Lab 03/11/20 20:09 Results Labs from last 24 hours 03/13/20 03/13/20 03/13/20 10:53 07:06 05:00 WBC 7.6 RBC 3.25 L Hgb 7.0 L Hct 25.2 L MCV 77.5 L MCH 21.5 L MCHC 27.8 L RDW 21.9 H Plt Count 320 MPV 10.8 H Neut % (Auto) 57.0 Lymph % (Auto) 29.7 [place] % (Auto) 7.7 Eos % (Auto) 4.4 Baso % (Auto) 0.7 Neut # (Auto) 4.33 Lymph # (Auto) 2.3 [place] # (Auto) 0.6 Eos # (Auto) 0.3 Baso # (Auto) 0.1 Nucleated RBC % (a uto) 0.3 Nucleated RBCs # 0.0 POC Glucose 113 111 Blood Type Rho(D) Type Antibody Screen Crossmatch 03/12/20 03/12/20 03/12/20 21:19 19:33 16:52 WBC RBC Hgb 7.2 L Hct 25.3 L MCV MCH MCHC RDW Plt Count MPV Neut % (Auto) Lymph % (Auto) [place] % (Auto) Eos % (Auto) Baso % (Auto) Neut # (Auto) Lymph # (Auto) [place] # (Auto) Eos # (Auto) Baso # (Auto) Nucleated RBC % (a uto) Nucleated RBCs # POC Glucose 109 125 Blood Type Rho(D) Type Antibody Screen Crossmatch 03/12/20 03/11/20 13:50 20:09 WBC RBC Hgb 7.1 L Hct 24.8 L MCV MCH MCHC RDW Plt Count MPV Neut % (Auto) Lymph % (Auto) [place] % (Auto) Eos % (Auto) Baso % (Auto) Neut # (Auto) Lymph # (Auto) [place] # (Auto) Eos # (Auto) Baso # (Auto) Nucleated RBC % (a uto) Nucleated RBCs # POC Glucose Blood Type O Positive Rho(D) Type Positive Antibody Screen Negative Crossmatch See Detail Vitals: Last Vital Signs Temp 97.7 F 03/13/20 13:04 Pulse 69 03/13/20 13:04 Resp 22 H 03/13/20 13:04 BP 172/74 03/13/20 13:04 Pulse Ox 96 03/13/20 13:04 Discharge Plan Discharge Patient Disposition: Home Condition: Stable Prescriptions: New pantoprazole [Protonix] 40 mg tablet,delayed release (DR/EC) 40 mg PO BID Qty: 60 RF: 0 Continued losartan 100 mg tablet 100 mg PO DAILY RF: 0 albuterol sulfate 2.5 mg /3 mL (0.083 %) solution for nebulization 2.5 mg INHALATION Q4H PRN (Reason: Shortness Of Breath) RF: 0 (DME) lancets Misc See Rx Instructions .ROUTE .MEDSUPPLY Qty: 50 RF: 0 (DME) blood sugar diagnostic Strip See Rx Instructions .ROUTE .MEDSUPPLY Qty: 10 RF: 0 Humira Pen 40 mg/0.8 mL pen injector kit 40 mg SUBCUT Q14D Qty: 2 RF: 3 febuxostat [Uloric] 40 mg tablet 40 mg PO DAILY Qty: 30 RF: 3 gabapentin 100 mg capsule 100 mg PO .COMPLEX Qty: 150 RF: 3 melatonin 10 mg tablet, sublingual 10 mg SUBLINGUAL DAILY RF: 0 ferrous sulfate 325 mg (65 mg iron) tablet,delayed release (DR/EC) 325 mg PO DAILY RF: 0 All Day Allergy (cetirizine) 10 mg capsule 10 mg PO DAILY Qty: 90 RF: 3 diltiazem HCl 120 mg capsule,ext.rel 24h degradable 120 mg PO QAM Qty: 90 RF: 3 montelukast 10 mg tablet 10 mg PO DAILY Qty: 30 RF: 6 furosemide 80 mg tablet See Rx Instructions PO BID PRN (Reason: edema) Qty: 60 RF: 11 potassium chloride 10 mEq tablet extended release 10 meq PO DAILY Qty: 30 RF: 11 metformin 1,000 mg tablet 1,000 mg PO BID 30 Days Qty: 60 RF: 3 venlafaxine 150 mg capsule,extended release 24hr 150 mg PO DAILY Qty: 60 RF: 11 Discontinued alendronate [Fosamax] 70 mg tablet 70 mg PO .weekly 84 Days Qty: 15 RF: 4 Eliquis 2.5 mg tablet 2.5 mg PO BID Qty: 60 RF: 11 Discharge Orders: Discharge Order (Routine); Ordered 03/13/20 Ordered By: Brando Jaime Referrals: Lincoln Hobbs DO [Primary Care Provider] - 1-3 days (CBC on follow-up) Discharge Diet: Cardiac and Diabetic Discharge Activity: Increase activity as tolerated Activity Restrictions/Additional Instructions: May discharge after transfusion is complete May restart Metformin Discharge Attestations Time Spent in Discharge Care*: greater than 30 min Quality Metrics Clinical Quality Measures During this hospital stay, did patient experience: None Coding Level of Care Code Acute Pattern Wheel Maker for Gregg Fwedna Diagnoses Acute blood loss anemia D62 Acute GI bleeding K92.2 Chronic anticoagulation Z79.01 DVT (deep venous thrombosis) I82.509 DVT location: lower extremity Affected thrombotic vein of extremity: unspecified vein of extremity Chronicity: chronic Laterality: unspecified laterality Osteoporosis M81.0 Osteoporosis type: unspecified Presence of current pathological fracture: without current pathological fracture Type 2 diabetes mellitus E11.42 Diabetes mellitus penitentiary insulin use: without intermission coordinator use Diabetes mellitus complication status: with neurologic complications Diabetes mellitus complication detail: with polyneuropathy Hypertension I10 Hypertension type: essential hypertension ILD (interstitial lung disease) J84.9 Obstructive sleep apnea G47.33 Psoriatic arthritis L40.50 Fibromyalgia M79.7 Morbid obesity due to excess calories E66.01
[2020-03-13] MEDS: sodium chloride 0.9% (100 ml) 100 ML 150 ML (15:10)
== END 2020-03-13 15:48 | disposition home or self-care (01) | DRG 378 ==
LOC: ER 19:17 → MEDSURG 22:57
PROVIDERS: Hospitalist; Nurse Practitioner Family; Admitting Provider Hospitalist; PCP Family Medicine; Visit Provider Internal Medicine
DX: K92.2 Gastrointestinal hemorrhage, unspecified (principal); Z68.41 Body mass index [BMI] 40.0-44.9, adult; J84.9 Interstitial pulmonary disease, unspecified; M79.7 Fibromyalgia; M06.9 Rheumatoid arthritis, unspecified; L40.50 Arthropathic psoriasis, unspecified; E11.9 Type 2 diabetes mellitus without complications; I10 Essential (primary) hypertension; Z86.718 Personal history of other venous thrombosis and embolism; E66.01 Morbid (severe) obesity due to excess calories; Z66 Do not resuscitate; M81.0 Age-related osteoporosis without current pathological fracture; G47.33 Obstructive sleep apnea (adult) (pediatric); Z99.81 Dependence on supplemental oxygen; Z79.51 Long term (current) use of inhaled steroids; Z79.4 Long term (current) use of insulin
CPT/HCPCS: 12345; 36415; 36416; 36430; 71045; 74174; 80053; 81001; 82962; 83540; 83550; 85014; 85018; 85025; 85610; 85730; 86850; 86900; 86920; 94660; 96375; 99214; 99283; C9113; J0696; J7030; P9016; Q9967

== ENCOUNTER → 2020-03-18 10:52 | Outpatient (BNVA) | payer MEDICARE, OTHER, SELFPAY | PROVIDERS: PCP Family Medicine; Visit Provider Family Medicine | DX: K92.2 Gastrointestinal hemorrhage, unspecified (principal); Z09 Encounter for follow-up examination after completed treatment for conditions other than malignant neoplasm; I10 Essential (primary) hypertension | CPT/HCPCS: 85025 ==

== ENCOUNTER → 2020-04-01 10:58 | Outpatient (BNVA) | payer MEDICARE, OTHER, SELFPAY | PROVIDERS: PCP Family Medicine; Visit Provider Family Medicine | DX: K92.2 Gastrointestinal hemorrhage, unspecified (principal); E11.42 Type 2 diabetes mellitus with diabetic polyneuropathy; D64.9 Anemia, unspecified | CPT/HCPCS: 83036; 85025 ==

== ENCOUNTER → 2020-04-28 11:20 | Outpatient (BNVA) | payer MEDICARE, OTHER, SELFPAY | PROVIDERS: PCP Family Medicine; Visit Provider Family Medicine | DX: D64.9 Anemia, unspecified (principal); K92.2 Gastrointestinal hemorrhage, unspecified; D62 Acute posthemorrhagic anemia; E11.42 Type 2 diabetes mellitus with diabetic polyneuropathy; M79.7 Fibromyalgia | CPT/HCPCS: 85025 ==

== ENCOUNTER → 2020-07-20 13:57 | Outpatient (BNVA) | payer BC, SELFPAY | PROVIDERS: PCP Internal Medicine; Visit Provider Internal Medicine Rheumatology | DX: L40.50 Arthropathic psoriasis, unspecified (principal); M79.7 Fibromyalgia; D64.9 Anemia, unspecified; Z79.899 Other long term (current) drug therapy; L40.0 Psoriasis vulgaris; M15.9 Polyosteoarthritis, unspecified; M81.0 Age-related osteoporosis without current pathological fracture; G62.9 Polyneuropathy, unspecified; R76.8 Other specified abnormal immunological findings in serum | CPT/HCPCS: 99214 ==

== ENCOUNTER → 2021-01-11 13:18 | Outpatient (BNVA) | payer MEDICARE, MEDICAID, SELFPAY | PROVIDERS: PCP Internal Medicine; Visit Provider Internal Medicine Rheumatology | DX: L40.50 Arthropathic psoriasis, unspecified (principal); L40.0 Psoriasis vulgaris; M79.7 Fibromyalgia; D64.9 Anemia, unspecified; M15.9 Polyosteoarthritis, unspecified; J84.9 Interstitial pulmonary disease, unspecified; G62.9 Polyneuropathy, unspecified; M81.0 Age-related osteoporosis without current pathological fracture; Z79.899 Other long term (current) drug therapy; Z71.89 Other specified counseling | CPT/HCPCS: 99214 ==

== ENCOUNTER 2022-12-24 15:08 | Inpatient (IN) | payer MEDICARE, MEDICAID, SELFPAY ==
[2022-12-24] VITALS (77 sets, daily range): BP systolic 81–155; BP diastolic 37–107; PULSE 68–151; RESP 16–32; TEMP 36.8–37.2; O2SAT 77–97; BMI 43.8
--- NOTE | 2022-12-24 15:14 | CTR_ITS ---
PROCEDURE INFORMATION: Exam: CT Head Without Contrast Exam date and time: 12/24/2022 3:44 PM Age: 77 years old Clinical indication: Altered mental status/memory loss and weakness, extremity; Bilateral; Additional info: AMS TECHNIQUE: Imaging protocol: Computed tomography of the head without contrast. Radiation optimization: All CT scans at this facility use at least one of these dose optimization techniques: automated exposure control; mA and/or kV adjustment per patient size (includes targeted exams where dose is matched to clinical indication); or iterative reconstruction. REPORTING DATA: Count of CT and Cardiac NM exams in prior 12 months: This patient has received 0 known CTs and 0 known cardiac nuclear medicine studies in the 12 months prior to the current study. COMPARISON: MR angio head wo con [id number] 08/30/2017 1:12 PM RADIATION DOSE METRICS: Total DLP (mGy-cm): 1087.65 FINDINGS: Brain: No acute infarct. No hemorrhage. Involutional changes of the brain, commensurate with age. No mass effect. Cerebral ventricles: No ventriculomegaly. Paranasal sinuses: No significant inflammation. No fluid levels. Mastoid air cells: Visualized mastoid air cells are well aerated. Bones/joints: Frontal hyperostosis. No acute fracture. Soft tissues: There are calcified scalp subcutaneous nodules which may be epidermal inclusion cysts present. CT/CT head wo con* [id number] IMPRESSION: No acute intracranial abnormality.
--- NOTE | 2022-12-24 15:14 | ECG_ITS ---
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 Measurements Intervals [place] Rate: 142 P: 0 [place]: 0 QRS: 19 QRSD: 84 T: 229 QT: 272 QTc: 419 Interpretive Statements ATRIAL FIBRILLATION WITH RAPID VENTRICULAR RESPONSE POSSIBLE ANTERIOR MYOCARDIAL INFARCTION , PROBABLY OLD [30 ms Q WAVE IN V3/V4, OR R < 0.2 mV IN V4] ABNORMAL RHYTHM ECG Compared to ECG 01/16/2017 18:09:50 Myocardial infarct finding now present Sinus tachycardia no longer present Electronically Signed On 12-24-2022 18:25:05 CDT by Lj Laureano M.D. [id number]
--- NOTE | 2022-12-24 15:14 | XRR_ITS ---
PROCEDURE INFORMATION: Exam: XR Chest Exam date and time: 12/24/2022 3:36 PM Age: 77 years old Clinical indication: Cough and shortness of breath; Additional info: Dyspnea/cough TECHNIQUE: Imaging protocol: Radiologic exam of the chest. Views: 1 view. COMPARISON: CR XR chest 1V portable [id number] 03/11/2020 7:30 PM FINDINGS: Lungs: The lungs are hypoinflated. There is an infiltrate present in the left lower lobe and lingula. Patchy infiltrate is also seen in the right lung base in the right upper lobe. Pleural spaces: Small left pleural effusion. Heart/Mediastinum: Stable cardiomegaly. Bones/joints: Stable bones. XR/XR chest 1V portable [id number] IMPRESSION: Multifocal pneumonia most conspicuous in the left lung base and right upper lobe with small left pleural effusion.
[2022-12-24 15:41] LABS: Basophils # 0.1 10^3/uL (0.0-0.1); Basophils % 0.6 %; Eosinophils # 0.2 10^3/uL (0.0-0.8); Eosinophils % 2.3 %; Hematocrit 35.8 % (37.0-47.0); Hemoglobin 10.8 g/dL (11.5-15.3); Lymphocytes # 3.9 10^3/uL (0.8-4.8); Lymphocytes % 40.7 %; Mean Corpuscular HGB Conc 30.2 g/dL (30.0-36.0); Mean Corpuscular Hemoglobin 32.4 pg (28.0-34.0); Mean Corpuscular Volume 107.5 fl (81-99); Monocytes # 1.6 10^3/uL (0.2-0.9); Monocytes % 16.3 %; Neutrophils # 3.53 10^3/uL (1.8-7.7); Neutrophils % 37.1 %; Nucleated Red Blood Cells % 0.2 %; Platelet Count 757 10^3/cmm (130-400); Red Blood Count 3.33 10^6/uL (4.1-5.3); Red Cell Distribution Width 19.5 % (12.1-15.1); White Blood Count 9.5 10^3/uL (4.0-10.0)
[2022-12-24] MEDS: dilTIAZem 5 mg/mL SDV 5 mL 20 MG IVP (15:59)
[2022-12-24] MEDS: dilTIAZem 100 MG in sodium chloride 0.9% (add-van) 100 ML IV (16:04)
[2022-12-24 16:05] LABS: Troponin(5th) Baseline 20 ng/L (0-10)
--- NOTE | 2022-12-24 16:07 | ED_ITS ---
HPI - Weakness General: Chief complaint: Weakness Stated complaint: AMS Time Seen by Provider: 12/24/22 15:09 Source: patient Mode of arrival: ambulatory History of Present Illness: 77-year-old female presents emergency room via ambulance from longterm. They are complaining of generalized weakness altered mental status. EMS was told that normally she is transfers independently. Awake but unresponsive. They were able to get her to arouse slightly to aggressive noxious stimuli. She will do the same on arrival here although she denies any chest or abdominal pain beyond where the sternal rub was performed. She denies dysuria urgency or frequency. No report of fever sweats or chills. Patient is requiring 4 L by na kerrie cannula was previously on 2. Later in the visit family member at the bedside reports the patient was hospitalized a few weeks ago at [facility] for pneumonia. She has been seeing infectious disease doctor out of [place] who has been giving her ertapenem injections once every 2 weeks for resistant bacteria. She has been doing this for approximately 2 years. After increasing her oxygen giving a breathing treatment patient is much more awake and alert and responsive and is now able to contribute to her history. Complaint: generalized weakness Onset (ago): hour(s) Duration: constant Location: generalized Relieving factors: none Exacerbating factors: none Associated symptoms: Denies chest pain, chills, confusion, melena, decreased appetite, diaphoresis, dysuria, easy bruising, fever(s), headache(s), myalgias, nausea, rash, short of breath, syncope or vomiting Review of Systems Const: Denies: fever(s), chills, fatigue, malaise or diaphoresis Card: Denies: chest pain, palpitations, irregular heart rhythm, edema or syncope Resp: Denies: dyspnea, productive cough or non-productive cough GI: Denies: nausea, vomiting or melena : Denies: dysuria, urinary frequency or urinary urgency Neuro: Denies: headache(s) or confusion Jero/Lymph: Denies: easy bruising [facility] ED PFSH: Medical History (Updated 12/24/22 @ 17:44 by Lg Cobos MD) Annular psoriasis Chronic anticoagulation Eliquis discontinued secondary to GI bleeding and severe anemia Chronic edema takes prn lasix DVT (deep venous thrombosis) Environmental and seasonal allergies Fibromyalgia Gout High risk medication use Hypertension on diltiazem and losartan ILD (interstitial lung disease) 3L BNC continous Morbid obesity due to excess calories Obstructive sleep apnea intermittent cpap use Osteoarthritis Osteoporosis Fosamax discontinued in case this is contributing to bleeding with GI tract irritation 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 Type 2 diabetes mellitus Surgical History H/O arthroscopy of knee right knee 12/2012 H/O: hysterectomy Hx of bilateral cataract extraction with prosthetic lens insertion Family History Other CAD (coronary artery disease) Cancer Chronic kidney disease (CKD) Diabetes Hypertension Rheumatoid arthritis Denies family history of Systemic lupus erythematosus (SLE) in adult Stroke Social History Smoking and tobacco status: never smoked Substance/Drug Use: never Marital status: / Physical Exam Const: EXAM LIMITATIONS: altered mental status GENERAL APPEARANCE: cooperative and comfortable ORIENTATION/CONSCIOUSNESS: Yes awake HENMT: COMMON NORMALS: normocephalic, atraumatic and hearing grossly normal bilaterally HEAD & SCALP: normocephalic and atraumatic Resp: COMMON NORMALS: normal respiratory effort, No retractions, No use of accessory muscles and clear to auscultation bilaterally AUSCULTATION: clear to auscultation bilaterally Cardio: RATE: tachycardic RHYTHM: abnormal rhythm irregularly irregular GI: COMMON NORMALS: Soft to palpation and No hepatosplenomegaly present AU SCULTATION: Yes normoactive bowel sounds PALPATION: Yes Soft to palpation, No Tenderness to palpation present (GI), No Guarding due to palpation present (GI) and Yes No hepatosplenomegaly present Extremity: COMMON NORMALS: normal to inspection, capillary refill normal, no clubbing, cyanosis or edema, no calf tenderness and no pedal edema Neuro: OTHER: No focal neurologic deficits noted Skin: COMMON NORMALS: no rashes or lesions noted GENERAL SKIN EXAM: no rashes or lesions noted Course Vital Signs: Vital signs: Vital Signs Temperature 98.2 F 12/24/22 17:45 Pulse Rate 114 H 12/24/22 18:00 Respiratory Rate 22 H 12/24/22 18:00 Blood Pressure 118/81 12/24/22 18:00 Pulse Oximetry 94 12/24/22 18:19 Oxygen Delivery Me thod Nasal Cannula 12/24/22 18:00 Oxygen Flow Rate 4 12/24/22 18:19 MDM - Weakness Medical Decision Making Patient much more awake and alert after work-up completed. She does have pneumonia as well as a cystitis. Will admit discussed with family she still wants to be a no code. She is requiring fair amount of oxygen. Will admit to ICU initially. Patient is not septic IV antibiotics have been begun. Medical Records I reviewed the patient's medical records. Lab Data I reviewed the patient's lab results. 12/24/22 15:32 12/24/22 15:32 Radiology Impressions Chest X-Ray 12/24/22 15:14 IMPRESSION: Multifocal pneumonia most conspicuous in the left lung base and right upper lobe with small left pleural effusion. Head CT 12/24/22 15:14 IMPRESSION: No acute intracranial abnormality. Chest/Abdomen/Pelvis CT 12/24/22 17:30 IMPRESSION: 1. Multifocal pneumonia again present. Recommend follow-up after treatment. 2. Large hiatal hernia is unchanged. IMPRESSION: 1. 5 mm stone is seen in the distal right ureter. Minimal right pelviectasis is similar to previous suggesting the stone is not significantly obstructing. 2. Nonspecific bilateral perinephric stranding. Correlate with urinalysis for infection. COMMENTS: Consistent with the [employer]'s Incidental Findings Committee white paper (J Am Miki Radiol 2018): Any incidental renal lesion less than 1 cm or classified as too small to characterize, or any incidental cystic renal lesion characterized as simple-appearing, is likely benign. No follow-up imaging is recommended for these lesions per consensus recommendations based on imaging criteria. Laboratory Results WBC 9.5 10^3/uL (4.0-10.0) 12/24/22 15:32 RBC 3.33 10^6/uL (4.1-5.3) L 12/24/22 15:32 Hgb 10.8 g/dL (11.5-15.3) L 12/24/22 15:32 Hct 35.8 % (37.0-47.0) L 12/24/22 15:32 MCV 107.5 fl (81-99) H 12/24/22 15:32 MCH 32.4 pg (28.0-34.0) 12/24/22 15: MCHC 30.2 g/dL (30.0-36.0) 12/24/22 15: RDW 19.5 % (12.1-15.1) H 12/24/22 15: Plt Count 757 10^3/cmm (130-400) H 12/24/22 15: MPV 10.0 fL (7.4-10.4) 12/24/22 15:32 Neut % (Auto) 37.1 % 12/24/22 15:32 Lymph % (Auto) 40.7 % 12/24/22 15: [place] % (Auto) 16.3 % 12/24/22 15: Eos % (Auto) 2.3 % 12/24/22 15: Baso % (Auto) 0.6 % 12/24/22 15: Neut # (Auto) 3.53 10^3/uL (1.8-7.7) 12/24/22 15:32 Lymph # (Auto) 3.9 10^3/uL (0.8-4.8) 12/24/22 15:32 [place] # (Auto) 1.6 10^3/uL (0.2-0.9) H 12/24/22 15: Eos # (Auto) 0.2 10^3/uL (0.0-0.8) 12/24/22 15: Baso # (Auto) 0.1 10^3/uL (0.0-0.1) 12/24/22: Nucleated RBC % (auto) 0.2 % 12/24/22: Nucleated RBCs # 0.0 /100WBC 12/24/22 15:32 Specimen Type Arterial 12/24/22 16:40 Sample Site Radial, right 12/24/22 16:40 ABG pH 7.44 (7.35-7.45) 12/24/22 16:40 ABG pCO2 52.6 mmHg (35-45) H 12/24/22 16:40 ABG pO2 58.0 mmHg (80.0-100.0) L 12/24/22 16:40 ABG HCO3 35.9 mmol/L (22-26) H 12/24/22 16:40 ABG O2 Saturation 90.4 12/24/22 16:40 ABG Base Excess 10.1 mmol/L (-2.0-2.0) H 12/24/22 16:40 Real Test Pos 12/24/22 16:40 A-a O2 Gradient 17.5 mmHg (5-10) H 12/24/22 16:40 Hematocrit 35.7 % (37-47) L 12/24/22 16:40 Hgb O2 Saturation 89.2 % (95-100) L 12/24/22 16:40 Carboxyhemoglobin 1.3 %THgb (0.4-20.1) 12/24/22 16:40 Methemoglobin 0.1 % (0.4-1.5) L 12/24/22 16:40 Total Hemoglobin 11.7 g/dL (12-16) L 12/24/22 16:40 Sodium 143.0 mmol/L (131-143) 12/24/22 16:40 Potassium 3.8 mmol/L (3.5-5.0) 12/24/22 16:40 Glucose 112.0 mg/dL (70-115) 12/24/22 16:40 Ionized Calcium 1.2 mmol/L (1.1-1.4) 12/24/22 16:40 O2 Delivery Device Nc 12/24/22 16:40 O2 Liters/Min 4.0 % 12/24/22 16:40 FiO2 36.0 % 12/24/22 16:40 Machining Engineer ID glc 12/24/22 16:40 Sodium 141 mmol/L (136-145) 12/24/22 15:32 Potassium 4.3 mmol/L (3.5-5.1) 12/24/22 15:32 Chloride 96 mmol/L (98-107) L 12/24/22 15:32 Carbon Dioxide 32 mmol/L (22-29) H 12/24/22 15:32 Anion Gap 17.3 (5-19) 12/24/22 15:32 BUN 34 mg/dL (8-23) H 12/24/22 15:32 Creatinine 1.5 mg/dL (0.5-0.9) H 12/24/22 15:32 GFR Calculation Not Reportable 12/24/22 15:32 Glucose 117 mg/dL (65-115) H 12/24/22 15:32 Calculated Osmolality 301 mOsm/kg (285-295) H 12/24/22 15:32 Lactic Acid 1.1 mmol/L (0.5-2.2) 12/24/22 15:32 Calcium 9.4 mg/dL (8.5-10.5) 12/24/22 15:32 Magnesium 1.0 mg/dL (1.7-2.3) L 12/24/22 15:32 Iron 33 ug/dL (37-145) L 12/24/22 15:32 TIBC 267 mcg/dl 12/24/22 15:32 % Saturation 12.3 % (20-50) L 12/24/22 15:32 Unsat Iron Binding 234 ug/dL (112-347) 12/24/22 15:32 Total Bilirubin 0.4 mg/dL (0.15-1.2) 12/24/22 15:32 AST 14 U/L (0-32) 12/24/22 15:32 ALT 7 U/L (0-33) 12/24/22 15:32 Alkaline Phosphatase 86 U/L (35-105) 12/24/22 15:32 Troponin T Baseline 20 ng/L (0-10) H 12/24/22 15:32 NT-Pro-B Natriuret Pep 1657 pg/mL (0-450) H 12/24/22 15:32 Total Protein 7.3 g/dL (6.6-8.7) 12/24/22 15:32 Albumin 3.2 g/dL (3.5-5.2) L 12/24/22 15:32 Globulin 4.1 g/dL (1.3-4.6) 12/24/22 15:32 Lipase 12 U/L (13-60) L 12/24/22 15:32 Vitamin B12 437 pg/mL (232-1245) 12/24/22 15:32 Procalcitonin 0.10 ng/mL (0-0.5) 12/24/22 15:32 TSH 2.48 uIU/mL (0.27-4.20) 12/24/22 15:32 Urine Color Yellow (Yellow) 12/24/22 16:03 Urine Appearance Cloudy (CLEAR) A 12/24/22 16:03 Urine pH 5 (5-7) 12/24/22 16:03 Ur Specific [place] 1.010 (1.005-1.030) 12/24/22 16:03 Urine Protein Trace (Negative) 12/24/22 16:03 Urine Glucose (UA) Norm (Normal) 12/24/22 16:03 Urine Ketones Negative (Negative) 12/24/22 16:03 Urine Blood 2+ (Negative) H 12/24/22 16:03 Urine Nitrate Negative (Negative) 12/24/22 16:03 Urine Bilirubin Neg (Negative) 12/24/22 16:03 Urine Urobilinogen Norm mg/dL (Negative) 12/24/22 16:03 Ur Leukocyte Esterase 2+ (Negative) H 12/24/22 16:03 Urine RBC 5-10 /hpf (0-2) H 12/24/22 16:03 Urine WBC Too numerous to cnt /hpf (0-5) H 12/24/22 16:03 Ur Squamous Epith Cells 5-10 /hpf (0-5) H 12/24/22 16:03 Amorphous Sediment Not Reportable 12/24/22 16:03 Urine Bacteria 2+ /hpf (NONE) H 12/24/22 16:03 Ur Random Sodium 52 mmol/L 12/24/22 16:03 Ur Random Potassium 44 mmol/L 12/24/22 16:03 Ur Random Chloride 55 mmol/L 12/24/22 16:03 Urine Creatinine 90 mg/dL (28-217) 12/24/22 16:03 Urine Opiates Screen Positive ng/mL (Negative) H 12/24/22 16:03 Ur Barbiturates Screen Negative ng/mL (Negative) 12/24/22 16:03 Ur Phencyclidine Scrn Negative ng/mL (Negative) 12/24/22 16:03 Ur Amphetamines Screen Negative ng/mL (Negative) 12/24/22 16:03 U Benzodiazepines Scrn Negative ng/mL (Negative) 12/24/22 16:03 Urine Cocaine Screen Negative ng/mL (Negative) 12/24/22 16:03 U Marijuana (THC) Screen Negative ng/mL (Negative) 12/24/22 16:03 Discharge Plan Discharge Patient Disposition: Admitted As Inpatient Admit Provider: Lg Cobos Clinical Impression: Pneumonia, Cystitis, Atrial fibrillation with rapid ventricular response Condition: Stable Coding Level of Care Code ED Tax Examiner for Gregg Sweet
[2022-12-24 16:11] LABS: Alanine Aminotransferase 7 U/L (0-33); Albumin Level 3.2 g/dL (3.5-5.2); Alkaline Phosphatase 86 U/L (35-105); Anion Gap 17.3 (5-19); Aspartate Amino Transferase 14 U/L (0-32); Blood Urea Nitrogen 34 mg/dL (8-23); Calcium 9.4 mg/dL (8.5-10.5); Carbon Dioxide 32 mmol/L (22-29); Chloride 96 mmol/L (98-107); Globulin 4.1 g/dL (1.3-4.6); Glucose 117 mg/dL (65-115); Lactic Sepsis W/Reflex 1.1 mmol/L (0.5-2.2); Lipase 12 U/L (13-60); NT Pro B Type Natriuretic Pept 1657 pg/mL (0-450); Osmolality Calculated 301 mOsm/kg (285-295); Potassium 4.3 mmol/L (3.5-5.1); Sodium 141 mmol/L (136-145); Total Bilirubin 0.4 mg/dL (0.15-1.2); Total Protein 7.3 g/dL (6.6-8.7)
[2022-12-24 16:35] LABS: Bilirubin Urine Neg (Negative); Blood Urine 2+ (Negative); Glucose Urine UA Norm (Normal); Ketones Urine Negative (Negative); Nitrate Urine Negative (Negative); Protein Urine Trace (Negative); Urine Appearance Cloudy (CLEAR); Urine Color Yellow (Yellow); pH Urine 5 (5-7)
[2022-12-24 16:36] LABS: Add Urine Culture? Yes; Add Urine Microscopic? YES; Bacteria Urine 2+ /hpf; Leukocyte Esterase Urine 2+ (Negative); Urobilinogen Urine Norm (Negative); WBC Urine TOO NUMEROUS TO CNT /hpf (0-5)
[2022-12-24] MEDS: levofloxacin-dextrose 5 % 750 MG/150 ML PREMIX 100 MG IV (16:41)
[2022-12-24 16:50] LABS: ABG PCO2 52.6 mmHg (35-45); ABG PH Result 7.44 (7.35-7.45); Alveolar-Arterial Oxygen Gradi 17.5 mmHg (5-10); Arterial Blood Gas Hematocrit 35.7 % (37-47); Base Excess ABG 10.1 mmol/L (-2.0-2.0); Blood Gas Allen Test Pos; Blood Gas Operator Identificat glc; Blood Gas Sample Site Radial, right; Blood Gas Sample Type Arterial; Carboxyhemoglobin 1.3 %THgb (0.4-20.1); HCO3 ABG 35.9 mmol/L (22-26); HGB O2 Sat 89.2 % (95-100); Ionized Calcium Level - ABG 1.2 mmol/L (1.1-1.4); Methemoglobin 0.1 % (0.4-1.5); Oxygen Device NC; Oxygen Saturation ABG 90.4; Potassium Level - ABG 3.8 mmol/L (3.5-5.0); Total Hemoglobin 11.7 g/dL (12-16)
[2022-12-24] MEDS: sodium chloride 0.9% 500 ML 999 ML IV (17:13)
--- NOTE | 2022-12-24 17:15 | ECG_ITS ---
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 Measurements Intervals [place] Rate: 122 P: 0 NM: 0 QRS: 161 QRSD: 86 T: 0 QT: 153 QTc: 219 Interpretive Statements ATRIAL FIBRILLATION WITH RAPID VENTRICULAR RESPONSE Limb leads I and aVL are reversed POSSIBLE ANTERIOR MYOCARDIAL INFARCTION , PROBABLY OLD [30 ms Q WAVE IN V3/V4, OR R < 0.2 mV IN V4] Compared to ECG 12/24/2022 15:20:48 No significant changes Electronically Signed On 12-24-2022 18:27:38 CDT by Lj Laureano M.D. [id number]
--- NOTE | 2022-12-24 17:28 | P.HP_ITS ---
Providers/Chief Complaint Admitting Physician: Lg Cobos MD Primary Care Provider: Willi Ba MD Chief Complaint: AMS History of Present Illness Nanci Sandoval is a 77 year old female longterm resident with past medical history of atrial fibrillation, struct of sleep apnea, interstitial lung disease, type 2 diabetes mellitus, DVT on Eliquis was brought into the ER today because of altered mental status. As per the nursing at the longterm patient was at her baseline health since last night. Yesterday morning patient was slightly lethargic and was refusing her oral medications. She continued to get more altered during the day hence family requested for patient to be transferred to the hospital for further evaluation. Family was at bedside patient was apparently at [facility] 3 weeks ago for symptoms consistent with congestive heart failure and was treated with IV diuretics. She had a [place] catheter which was placed at that time and has not been changed since then. Patient has been having difficulty with constipation. Patient is complaining of mild dysuria with episodes of nausea and vomiting today and she was not able to take her medications. On review of medications from SNF she was apparently on ertapenem 1 g IM every 14 days with last dose on December 12 which she gets for chronic ESBL colonization as per ID physician at [facility]. She has also been followed up at wound care for an open wound which is improving as per the daughters at bedside on right second great toe. Patient is complaining of pain in her bottom which as per her is getting more sore for last 2 to 3 days. In the ER patient was found to be somnolent, heart rate of more than 130 with blood pressure 116/75, hypoxic needing up to 4 L of O2 supplementation. She was given IV Levaquin, 1 L of fluid bolus and started on Cardizem drip. ABG was requested. CT head was already done. When seen in the ICU patient is awake and alert to self and being in the hospital. He is able to have complete conversation without any difficulty in breathing. Currently on 3 L saturating 94% with heart rate of 120 to 130 bpm on Cardizem drip of 12.5. Patient has not taken any of her home medications today. Review of Systems General: Reports: 10 or more systems reviewed and unremarkable except in HPI and below Const: Denies: fever(s), chills, body aches, change in appetite, change in weight, malaise, night sweats, diaphoresis, change in sleep pattern, daytime sleepiness or snoring Eyes: Denies: change in vision, blurry vision, photophobia, eye discomfort or eye discharge ENMT: Denies: throat pain, enlarged tonsils, hoarseness, mouth pain, oral sores, dry mouth, tinnitus, nasal congestion or post nasal drip Card: Denies: chest pain, palpitations, irregular heart rhythm, edema, swelling of feet/ankles, lightheadedness, syncope, pre-syncope, dyspnea on exertion, orthopnea, leg pain with exertion or acrocyanosis Resp: Denies: dyspnea, productive cough, non-productive cough, wheezing, stridor, pain on inspiration, change in phlegm color, hemoptysis or chest congestion GI: Denies: abdominal pain, nausea, vomiting, hematemesis, coffee ground emesis, dysphagia, heartburn, diarrhea, constipation, bloating, GI cramping, change in bowel habits, pain on defecation, hematochezia or melena : Denies: flank pain, dysuria, urinary frequency, urinary urgency, urinary hesitancy, nocturia or hematuria Musc: Denies: neck pain, back pain, extremity pain, joint pain, joint swelling, joint redness, joint stiffness or limited range of motion Neuro: Denies: headache(s), numbness in extremities, weakness in extremities, sensory changes, lack of coordination, difficulty walking, frequent falls, dizziness, vertigo, confusion, Slurred speech present, difficulty communicating thoughts or seizure-like activity Psych: Denies: anxiety, depression, mood swings, panic attacks, hopelessness or irritability Endo: Denies: polyuria, polydipsia, tired all the time, cold intolerance, excessive sweating, flushing or heat intolerance Jero/Lymph: Denies: easy bruising or easy bleeding All/Imm: Denies: tongue swelling, facial swelling or acute wheezing Medications/Allergies Home Medications Medication Instructions Recorded Confirmed Last Taken Type blood sugar diagnostic #10 ea 05/13/19 12/24/22 Unknown History lancets #50 ea 05/13/19 12/24/22 Unknown History febuxostat 40 mg tablet (Uloric) 40 mg PO DAILY #30 tabs 09/17/19 12/24/22 12/24/22 Rx ferrous sulfate 325 mg (65 mg 325 mg PO DAILY 11/12/19 12/24/22 12/24/22 History iron) tablet,delayed release cetirizine 10 mg capsule (All Day 10 mg PO DAILY #90 caps 11/13/19 12/24/22 12/24/22 Rx Allergy (cetirizine)) montelukast 10 mg tablet 10 mg PO DAILY #30 tabs 11/13/19 12/24/22 12/24/22 Rx potassium chloride 10 mEq 10 meq PO DAILY #30 tabs 03/18/20 12/24/22 12/24/22 Rx tablet,extended release venlafaxine 150 mg 150 mg PO DAILY #90 caps 03/18/20 12/24/22 12/24/22 Rx capsule,extended release 24 hr losartan 100 mg tablet 100 mg PO DAILY #90 tabs 04/26/20 12/24/22 12/24/22 Rx pantoprazole 40 mg tablet,delayed 40 mg PO BID #60 tabs 04/29/20 12/24/22 12/24/22 Rx release (Protonix) metformin 1,000 mg tablet 1,000 mg PO BID 30 days #60 tabs 06/02/20 12/24/22 12/24/22 Rx diltiazem HCl 120 mg 180 mg PO QAM 09/28/20 12/24/22 12/24/22 History capsule,extended release 24 hr, controlled furosemide 80 mg tablet 40 mg PO BID PRN edema 09/28/20 12/24/22 12/24/22 History allopurinol 100 mg tablet 100 mg PO DAILY 09/29/20 12/24/22 12/24/22 History aspirin 81 mg tablet,delayed 81 mg PO DAILY 09/29/20 12/24/22 12/24/22 History release (Adult Aspirin Regimen) metoprolol tartrate 25 mg tablet 25 mg PO BID 09/29/20 12/24/22 12/24/22 History ertapenem 1 gram solution for 1 g IM .Q7days 01/11/21 12/24/22 12/12/22 History injection (Invanz) acetaminophen 325 mg capsule 650 mg PO QID PRN Pain 12/24/22 12/24/22 12/23/22 History apixaban 5 mg tablet (Eliquis) 5 mg PO BID 12/24/22 12/24/2223 History bisacodyl 10 mg rectal suppository 10 mg [place] DAILY PRN Constipation 12/24/22 12/24/22 Unknown History (Dulcolax (bisacodyl)) budesonide-formoterol HFA 160 2 puff inhalation BID 12/24/22 12/24/22 12/24/22 History mcg-4.5 mcg/actuation aerosol inhaler calcium carbonate 600 mg-vitamin 1 tab PO DAILY 12/24/22 12/24/22 12/24/22 History D3 10 mcg (400 unit) tablet (Calcium 600 + D(3)) gabapentin 300 mg capsule 600 mg PO BID 12/24/22 12/24/22 12/24/22 History menthol 0.44 %-zinc oxide 20.6 % 1 applic topical QID PRN PREVENTION 12/24/22 12/24/22 12/24/22 History topical ointment (Calmoseptine) methotrexate 2.5 mg/mL oral 15 mg PO Q7D 12/24/22 12/24/22 12/24/22 History solution trazodone 50 mg tablet 50 mg PO QPM 12/24/22 12/24/22 12/23/22 History Allergies Allergy/AdvReac Type Severity Reaction Status Date / Time levomilnacipran Allergy hallucinati Verified 12/24/22 15:58 [From Fetzima] ons nitrofurantoin Allergy vomiting,abdominal Verified 12/24/22 15:58 pain,diarrhea pneumococcal 7-valent Allergy hives and Verified 12/24/22 15:58 conjugate to itching [From Prevnar] Sulfa (Sulfonamide Allergy confusion Verified 12/24/22 15:58 Antibiotics) PFSH Acute PFSH: Medical History (Updated 12/24/22 @ 17:44 by Lg Cobos MD) Annular psoriasis Chronic anticoagulation Eliquis discontinued secondary to GI bleeding and severe anemia Chronic edema takes prn lasix DVT (deep venous thrombosis) Environmental and seasonal allergies Fibromyalgia Gout High risk medication use Hypertension on diltiazem and losartan ILD (interstitial lung disease) 3L BNC continous Morbid obesity due to excess calories Obstructive sleep apnea intermittent cpap use Osteoarthritis Osteoporosis Fosamax discontinued in case this is contributing to bleeding with GI tract irritation 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 Type 2 diabetes mellitus Surgical History H/O arthroscopy of knee right knee 12/2012 H/O: hysterectomy Hx of bilateral cataract extraction with prosthetic lens insertion Family History Other CAD (coronary artery disease) Cancer Chronic kidney disease (CKD) Diabetes Hypertension Rheumatoid arthritis Denies family history of Systemic lupus erythematosus (SLE) in adult Stroke Social History Smoking and tobacco status: never smoked Substance/Drug Use: never Marital status: / Vitals/I&O/Wt Last Vital Signs Temp 98.9 F 12/24/22 15:09 Pulse 136 H 12/24/22 17:15 Resp 20 H 12/24/22 17:15 BP 116/75 12/24/22 17:15 Pulse Ox 95 12/24/22 17:15 O2 Del Method Nasal Cannula 12/24/22 17:15 O2 Flow Rate 4 12/24/22 17:15 12/24/22 12/24/22 12/24/22 06:59 14:59 22:59 Intake Total 3.000 / 3.000 Balance 3.000 / 3.000 Weight last 48 hrs Weight 127.006 kg Physical Exam Narrative: General: No acute distress, AO x1-2 HEENT: PERRLA, pupils bilaterally equal and reactive Chest: Normal vesicular breath sounds, no added sounds, equal good air entry bilaterally CVS: S1-S2 irregularly irregular, tachycardia no gallops, no rubs Abdomen: Soft, nontender, no organomegaly, bowel sounds present Neuro: No facial deformity, no focal deformity Stage I decub ulcer, superficial excoriation under pannus and breast Data 12/24/22 15:32 12/24/22 15:32 Other Labs: Radiology Impressions Chest X-Ray 12/24/22 15:14 IMPRESSION: Multifocal pneumonia most conspicuous in the left lung base and right upper lobe with small left pleural effusion. Head CT 12/24/22 15:14 IMPRESSION: No acute intracranial abnormality. Laboratory Results WBC 9.5 10^3/uL (4.0-10.0) 12/24/22 15:32 RBC 3.33 10^6/uL (4.1-5.3) L 08/13/23 15: Hgb 10.8 g/dL (11.5-15.3) L 12/24/22 15: Hct 35.8 % (37.0-47.0) L 12/24/22 15: MCV 107.5 fl (81-99) H 12/24/22 15: MCH 32.4 pg (28.0-34.0) 12/24/22 15: MCHC 30.2 g/dL (30.0-36.0) 12/24/22 15: RDW 19.5 % (12.1-15.1) H 12/24/22 15: Plt Count 757 10^3/cmm (130-400) H 12/24/22 15: MPV 10.0 fL (7.4-10.4) 12/24/22 15: Neut % (Auto) 37.1 % 12/24/22 15: Lymph % (Auto) 40.7 % 12/24/22 15: [place] % (Auto) 16.3 % 12/24/22 15: Eos % (Auto) 2.3 % 12/24/22: Baso % (Auto) 0.6 % 12/24/22: Neut # (Auto) 3.53 10^3/uL (1.8-7.7) 12/24/22 15: Lymph # (Auto) 3.9 10^3/uL (0.8-4.8) 12/24/22 15: [place] # (Auto) 1.6 10^3/uL (0.2-0.9) H 12/24/22 15: Eos # (Auto) 0.2 10^3/uL (0.0-0.8) 12/24/22: Baso # (Auto) 0.1 10^3/uL (0.0-0.1) 12/24/22: Nucleated RBC % (auto) 0.2 % 12/24/22: Nucleated RBCs # 0.0 /100WBC 12/24/22 15:32 Specimen Type Arterial 12/24/22 16:40 Sample Site Radial, right 12/24/22 16:40 ABG pH 7.44 (7.35-7.45) 12/24/22 16:40 ABG pCO2 52.6 mmHg (35-45) H 12/24/22 16:40 ABG pO2 58.0 mmHg (80.0-100.0) L 12/24/22 16:40 ABG HCO3 35.9 mmol/L (22-26) H 12/24/22 16:40 ABG O2 Saturation 90.4 12/24/22 16:40 ABG Base Excess 10.1 mmol/L (-2.0-2.0) H 12/24/22 16:40 Real Test Pos 12/24/22 16:40 A-a O2 Gradient 17.5 mmHg (5-10) H 12/24/22 16:40 Hematocrit 35.7 % (37-47) L 12/24/22 16:40 Hgb O2 Saturation 89.2 % (95-100) L 12/24/22 16:40 Carboxyhemoglobin 1.3 %THgb (0.4-20.1) 12/24/22 16:40 Methemoglobin 0.1 % (0.4-1.5) L 12/24/22 16:40 Total Hemoglobin 11.7 g/dL (12-16) L 12/24/22 16:40 Sodium 143.0 mmol/L (131-143) 12/24/22 16:40 Potassium 3.8 mmol/L (3.5-5.0) 12/24/22 16:40 Glucose 112.0 mg/dL (70-115) 12/24/22 16:40 Ionized Calcium 1.2 mmol/L (1.1-1.4) 12/24/22 16:40 O2 Delivery Device Nc 12/24/22 16:40 O2 Liters/Min 4.0 % 12/24/22 16:40 FiO2 36.0 % 12/24/22 16:40 Insole Bottom Filler ID glc 12/24/22 16:40 Sodium 141 mmol/L (136-145) 12/24/22 15:32 Potassium 4.3 mmol/L (3.5-5.1) 12/24/22 15:32 Chloride 96 mmol/L (98-107) L 12/24/22 15:32 Carbon Dioxide 32 mmol/L (22-29) H 12/24/22 15:32 Anion Gap 17.3 (5-19) 12/24/22 15:32 BUN 34 mg/dL (8-23) H 12/24/22 15:32 Creatinine 1.5 mg/dL (0.5-0.9) H 12/24/22 15:32 GFR Calculation Not Reportable 12/24/22 15:32 Glucose 117 mg/dL (65-115) H 12/24/22 15:32 Calculated Osmolality 301 mOsm/kg (285-295) H 12/24/22 15:32 Lactic Acid 1.1 mmol/L (0.5-2.2) 12/24/22 15:32 Calcium 9.4 mg/dL (8.5-10.5) 12/24/22 15:32 Magnesium 1.0 mg/dL (1.7-2.3) L 12/24/22 15:32 Total Bilirubin 0.4 mg/dL (0.15-1.2) 12/24/22 15:32 AST 14 U/L (0-32) 12/24/22 15:32 ALT 7 U/L (0-33) 12/24/22 15:32 Alkaline Phosphatase 86 U/L (35-105) 12/24/22 15:32 Troponin T Baseline 20 ng/L (0-10) H 12/24/22 15:32 NT-Pro-B Natriuret Pep 1657 pg/mL (0-450) H 12/24/22 15:32 Total Protein 7.3 g/dL (6.6-8.7) 12/24/22 15:32 Albumin 3.2 g/dL (3.5-5.2) L 12/24/22 15:32 Globulin 4.1 g/dL (1.3-4.6) 12/24/22 15:32 Lipase 12 U/L (13-60) L 12/24/22 15:32 Urine Color Yellow (Yellow) 12/24/22 16:03 Urine Appearance Cloudy (CLEAR) A 12/24/22 16:03 Urine pH 5 (5-7) 12/24/22 16:03 Ur Specific [place] 1.010 (1.005-1.030) 12/24/22 16:03 Urine Protein Trace (Negative) 12/24/22 16:03 Urine Glucose (UA) Norm (Normal) 12/24/22 16:03 Urine Ketones Negative (Negative) 12/24/22 16:03 Urine Blood 2+ (Negative) H 12/24/22 16:03 Urine Nitrate Negative (Negative) 12/24/22 16:03 Urine Bilirubin Neg (Negative) 12/24/22 16:03 Urine Urobilinogen Norm mg/dL (Negative) 12/24/22 16:03 Ur Leukocyte Esterase 2+ (Negative) H 12/24/22 16:03 Urine RBC 5-10 /hpf (0-2) H 12/24/22 16:03 Urine WBC Too numerous to cnt /hpf (0-5) H 12/24/22 16:03 Ur Squamous Epith Cells 5-10 /hpf (0-5) H 12/24/22 16:03 Amorphous Sediment Not Reportable 12/24/22 16:03 Urine Bacteria 2+ /hpf (NONE) H 12/24/22 16:03 Micro: Microbiology 12/24/22 16:11 Blood Culture - Preliminary Blood SPECIMEN COLLECTED 12/24/22 15:32 Blood Culture - Preliminary Blood SPECIMEN COLLECTED A&P Assessment and plan (1) Sepsis: (2) Respiratory failure with hypoxia and hypercapnia: (3) Cystitis: (4) Pneumonia: (5) Metabolic encephalopathy: (6) Atrial fibrillation with rapid ventricular response: (7) Acute kidney injury: (8) ILD (interstitial lung disease): (9) Obstructive sleep apnea: (10) Hypertension: Qualifiers: Hypertension type: essential hypertension Qualified Code(s): I10 - Essential (primary) hypertension (11) Type 2 diabetes mellitus: Qualifiers: Diabetes mellitus complication detail: with polyneuropathy Diabetes mellitus complication status: with neurologic complications Diabetes mellitus medical terminologist insulin use: without medical terminologist use Qualified Code(s): E11.42 - Type 2 diabetes mellitus with diabetic polyneuropathy (12) DVT (deep venous thrombosis): Qualifiers: Affected thrombotic vein of extremity: unspecified vein of extremity Chronicity: chronic DVT location: lower extremity Laterality: unspecified laterality Qualified Code(s): I82.509 - Chronic embolism and thrombosis of unspecified deep veins of unspecified lower extremity (13) Thrombocytosis: (14) Morbid obesity due to excess calories: Plan Sepsis: Ruled in on admission with tachycardia, leukocytosis, endorgan damage with metabolic encephalopathy, elevated creatinine. Check lactate with reflex. Given monitor bolus in ER. Will give further fluid judiciously with concerns for congestive heart failure. Check ABG. Check urinalysis, MRSA swab, urine Legionella, procalcitonin, bacterial antigen, sputum culture, respiratory viral panel. Check CT chest without contrast. On review of old cultures patient has history of UTI with ESBL E. coli. For now start patient IV meropenem and IV vancomycin. Keep mean artery pressure 65. For now start patient on normal saline at 75 cc/h. Keep oxygen saturation over 90%. With concerns for metabolic encephalopathy and mild hypercapnia for now start patient on BiPAP ventilation. Atrial fibrillation with rapid ventricular response: At home takes Cardizem 180 mg daily, metoprolol 25 mg twice daily. Continue with Cardizem drip for now. Continue with metoprolol 25 mg twice daily, Cardizem 60 mg every 6 hourly. Takes Eliquis 5 mg twice daily at home. For now switch to Lovenox 1 mg/kg body weight every 12 hourly. Metabolic encephalopathy: Most likely in setting of sepsis, possible and mild hypercapnia. Monitor regularly. Check CT head without contrast as patient has history of a trial fibrillation on anticoagulation. Check ammonia levels, urine drug screen. Check vitamin B12 and folate levels. Hypercapnic respiratory failure: History of COPD, obstructive sleep apnea. BiPAP ventilation as above. Acute kidney injury: Most likely in setting of sepsis. Medical reconciliation done for nephrotoxic drugs. Monitor BMP daily. Strict input output charting. CT abdomen pelvis without contrast to rule out obstructive nephropathy. Check urine lites, urine creatinine, urine eosinophils. History of DVT. History of restrictive lung disease. Hypertension: Goal pressure less than 140/90 mmHg with mean over 65. Metoprolol, Cardizem as above. Holding off on losartan given JONNATHAN for now. CODE STATUS: As seen on longterm paperwork. DNR/DNI. NPO. Protonix for PUD prophylaxis. Full dose Lovenox will suffice for DVT prophylaxis. Admit to ICU. Attestations Medical Necessity Statement*: Admission for more than 2 midnights for management of sepsis, altered mental status with hypercapnic respiratory failure, acute kidney injury in setting of possible pneumonia and cystitis Coding Level of Care Code Critical Care >/= 30 minutes Critical care time (in minutes): 80 The high probability of a clinically significant, sudden or life threatening deterioration, as referenced in this documentation, required my full and direct attention, intervention and personal management. The critical care time shown is in addition to time spent performing any reported separately billable procedures and includes the following: [x] Data and vital sign review and interpretation [x ] Patient assessment, examination and intervention [x] Medication orders and management [x] Patient/Family updates as able [x] Care Coordination and Documentation. Diagnoses Sepsis A41.9 Respiratory failure with hypoxia and hypercapnia J96.91; J96.92 Cystitis N30.90 Pneumonia J18.9 Metabolic encephalopathy G93.41 Atrial fibrillation with rapid ventricular response I48.91 Acute kidney injury N17.9 ILD (interstitial lung disease) J84.9 Obstructive sleep apnea G47.33 Hypertension I10 Hypertension type: essential hypertension Type 2 diabetes mellitus E11.42 Diabetes mellitus complication detail: with polyneuropathy Diabetes mellitus complication status: with neurologic complications Diabetes mellitus medical terminologist insulin use: without care home use DVT (deep venous thrombosis) I82.509 Affected thrombotic vein of extremity: unspecified vein of extremity Chronicity: chronic DVT location: lower extremity Laterality: unspecified laterality Thrombocytosis D75.839 Morbid obesity due to excess calories E66.01
--- NOTE | 2022-12-24 17:30 | CTR_ITS ---
PROCEDURE INFORMATION: Exam: CT Chest Without Contrast; Diagnostic Exam date and time: 12/24/2022 6:18 PM Age: 77 years old Clinical indication: Other: Montez/bacteriuria; Shortness of breath; Prior surgery; Surgery date: 6+ months; Surgery type: Hysterectomy; Patient HX: SOB with montez and bacteriuria. History of copd and afib. ; Additional info: Copd/pna TECHNIQUE: Imaging protocol: Diagnostic computed tomography of the chest without contrast. Radiation optimization: All CT scans at this facility use at least one of these dose optimization techniques: automated exposure control; mA and/or kV adjustment per patient size (includes targeted exams where dose is matched to clinical indication); or iterative reconstruction. REPORTING DATA: Count of CT and Cardiac NM exams in prior 12 months: This patient has received 0 known CTs and 0 known cardiac nuclear medicine studies in the 12 months prior to the current study. COMPARISON: CR (CHEST, ) 12/24/2022 3:36 PM RADIATION DOSE METRICS: Total DLP (mGy-cm): 1301.46 FINDINGS: Lungs: There are multifocal ground-glass infiltrates in the lungs with nodular consolidation also present in the left lower lobe similar to the comparison x-ray of the chest. Greatest regions of involvement are the right upper lobe the lingula in the [id number]-[id number]-right lower lobes. Pleural spaces: Unremarkable. No pneumothorax. No pleural effusion. Heart: Stable cardiomegaly. Coronary arteries: Mild coronary artery atherosclerosis. Lymph nodes: Subcentimeter mediastinal nodes are nonspecific. Lymph node in the as ago esophageal recess measuring 1.7 cm is unchanged. Vasculature: Normal for age. No aortic aneurysm. Diaphragm: Large hiatal hernia is unchanged. Bones/joints: Unremarkable. No acute fracture. Soft tissues: Unremarkable. PROCEDURE INFORMATION: Exam: CT Abdomen And Pelvis Without Contrast Exam date and time: 12/24/2022 6:18 PM Age: 77 years old Clinical indication: Other: Montez/bacteriuria; Shortness of breath; Prior surgery; Surgery date: 6+ months; Surgery type: Hysterectomy; Patient HX: SOB with montez and bacteriuria. History of copd and afib. ; Additional info: Copd/pna TECHNIQUE: Imaging protocol: Computed tomography of the abdomen and pelvis without contrast. Radiation optimization: All CT scans at this facility use at least one of these dose optimization techniques: automated exposure control; mA and/or kV adjustment per patient size (includes targeted exams where dose is matched to clinical indication); or iterative reconstruction. REPORTING DATA: Count of CT and Cardiac NM exams in prior 12 months: This patient has received 0 known CTs and 0 known cardiac nuclear medicine studies in the 12 months prior to the current study. COMPARISON: CT angio abdomen pelvis [id number] 03/11/2020 8:47 PM RADIATION DOSE METRICS: Total DLP (mGy-cm): 1301.46 FINDINGS: Liver: Normal. No mass. Gallbladder and bile ducts: Cholecystectomy changes are stable. Pancreas: Normal. No ductal dilation. Spleen: Normal. No splenomegaly. Adrenal glands: Normal. No mass. Kidneys and ureters: Nonspecific mild bilateral perinephric stranding. Right pelviectasis is unchanged. Hyperdense left lower pole renal lesion measuring 9 mm likely a protein/debris containing cysts. There is a 5 mm stone present in the distal right ureter. Stomach and bowel: Colonic diverticuli are seen without inflammation. Appendix: Appendectomy changes are stable. Intraperitoneal space: Unremarkable. No free air. No significant fluid collection. Vasculature: Stable atherosclerosis. Lymph nodes: Unremarkable. No enlarged lymph nodes. Urinary bladder: There is a [place] catheter in the bladder which is decompressed. Reproductive: Hysterectomy changes are unchanged. Bones/joints: No acute fracture. Soft tissues: Unremarkable. CT/[place] [id number] IMPRESSION: 1. Multifocal pneumonia again present. Recommend follow-up after treatment. 2. Large hiatal hernia is unchanged. IMPRESSION: 1. 5 mm stone is seen in the distal right ureter. Minimal right pelviectasis is similar to previous suggesting the stone is not significantly obstructing. 2. Nonspecific bilateral perinephric stranding. Correlate with urinalysis for infection. COMMENTS: Consistent with the [employer]'s Incidental Findings Committee white paper (J Am Miki Radiol 2018): Any incidental renal lesion less than 1 cm or classified as too small to characterize, or any incidental cystic renal lesion characterized as simple-appearing, is likely benign. No follow-up imaging is recommended for these lesions per consensus recommendations based on imaging criteria.
[2022-12-24 18:15] LABS: Amphetamines Screen Urine Negative (Negative); Barbiturates Screen Urine Negative (Negative); Benzodiazepines Screen Urine Negative (Negative); Cocaine Screen Urine Negative (Negative); Opiate Screen Urine Positive (Negative); PCP Screen Urine Negative (Negative); THC Screen Urine Negative (Negative)
[2022-12-24 18:31] LABS: Potassium, Radom Urine 44 mmol/L; Urine Random Chloride 55 mmol/L; Urine Random Sodium 52 mmol/L
[2022-12-24 19:12] LABS: Urine Creatinine 90 mg/dL (28-217)
[2022-12-24 19:12] LABS: Thyroid Stimulating Hormone 2.48 uIU/mL (0.27-4.20); Vitamin B12 437 pg/mL (232-1245)
[2022-12-24 19:23] LABS: Iron 33 ug/dL (37-145); Percent Saturation 12.3 % (20-50); Total Iron Binding Capacity 267 mcg/dl; Unsaturated Iron Binding 234 ug/dL (112-347)
[2022-12-24 19:27] LABS: Ammonia 19 umol/L (11-51)
[2022-12-24 19:38] LABS: Adenovirus Not Detected (NOT DETECT); Chlamydia Pneumoniae Not Detected (NOT DETECT); Coronavirus 229E,HKU1,NL63,OC4 Not Detected (NOT DETECT); Human Metapneumovirus Not Detected (NOT DETECT); Human Rhinovirus/Enterovirus Not Detected (NOT DETECT); Influenza A Not Detected (NOT DETECT); Influenza A H1 Not Detected (NOT DETECT); Influenza A H1-2009 Not Detected (NOT DETECT); Influenza A H3 Not Detected (NOT DETECT); Influenza B Not Detected (NOT DETECT); Mycoplasma Pneumoniae Not Detected (NOT DETECT); Parainfluenza Virus Type 1 Not Detected (NOT DETECT); Parainfluenza Virus Type 2 Not Detected (NOT DETECT); Parainfluenza Virus Type 3 Not Detected (NOT DETECT); Parainfluenza Virus Type 4 Not Detected (NOT DETECT); Respiratory Syncytial Virus A Not Detected (NOT DETECT); Respiratory Syncytial Virus B Not Detected (NOT DETECT); SARS-COV-2 Not Detected (NOT DETECT)
[2022-12-24] MEDS: dilTIAZem 60 mg Tablet PO (19:46)
[2022-12-24] MEDS: pantoprazole 40 mg SDV IVP (19:46)
[2022-12-24] MEDS: metoprolol tartrate 25 mg Tablet PO (19:46)
[2022-12-24] MEDS: meropenem 1,000 MG in sodium chloride 0.9% (plus) 50 ML 100 MG IV (19:47)
[2022-12-24] MEDS: vancomycin 1,500 MG/300 ML PIGGYBACK 200 MG IV (19:47)
--- NOTE | 2022-12-24 20:04 | ECG_ITS ---
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 Measurements Intervals [place] Rate: 119 P: 0 IA: 0 QRS: 18 QRSD: 69 T: 0 QT: 138 QTc: 194 Interpretive Statements ATRIAL FIBRILLATION WITH RAPID VENTRICULAR RESPONSE WITH ABERRANT CONDUCTION OR VENTRICULAR PREMATURE COMPLEXES LOW QRS VOLTAGE [QRS DEFLECTION < 0.5/1.0 mV IN LIMB/CHEST LEADS] POSSIBLE ANTERIOR MYOCARDIAL INFARCTION , PROBABLY OLD [30 ms Q WAVE IN V3/V4, OR R < 0.2 mV IN V4] Compared to ECG 12/24/2022 17:15:20 Ventricular premature complex(es) now present Aberrant conduction of supraventricular beat(s) now present Low QRS voltage now present Myocardial infarct finding still present Electronically Signed On 12-25-2022 10:23:12 CDT by Lj Laureano M.D. [email or web address]
[2022-12-24 20:25] LABS: Adenovirus Not Detected (NOT DETECT); Chlamydia Pneumoniae Not Detected (NOT DETECT); Coronavirus 229E,HKU1,NL63,OC4 Not Detected (NOT DETECT); Human Metapneumovirus Not Detected (NOT DETECT); Human Rhinovirus/Enterovirus Not Detected (NOT DETECT); Influenza A Not Detected (NOT DETECT); Influenza A H1 Not Detected (NOT DETECT); Influenza A H1-2009 Not Detected (NOT DETECT); Influenza A H3 Not Detected (NOT DETECT); Influenza B Not Detected (NOT DETECT); Mycoplasma Pneumoniae Not Detected (NOT DETECT); Parainfluenza Virus Type 1 Not Detected (NOT DETECT); Parainfluenza Virus Type 2 Not Detected (NOT DETECT); Parainfluenza Virus Type 3 Not Detected (NOT DETECT); Parainfluenza Virus Type 4 Not Detected (NOT DETECT); Respiratory Syncytial Virus A Not Detected (NOT DETECT); Respiratory Syncytial Virus B Not Detected (NOT DETECT); SARS-COV-2 Not Detected (NOT DETECT)
--- NOTE | 2022-12-24 21:43 | PC.NURSE ---
Patient states that her legs hurt and would not like SCD on.
[2022-12-24 21:52] LABS: Troponin 5 6HR 21.67 ng/L (0-10)
[2022-12-24 21:53] LABS: Troponin 5 6HR Delta 1.67 ng/L (0-12)
[2022-12-24] MEDS: nystatin powder 15 gm Btl 1 APPLIC TOPICAL (23:02)
[2022-12-25] VITALS (102 sets, daily range): BP systolic 72–129; BP diastolic 36–103; PULSE 80–159; RESP 15–32; TEMP 35.8–36.8; O2SAT 85–98
--- NOTE | 2022-12-25 00:15 | PC.NURSE ---
Confusion During assessment, patient is able to answer accurately who she is and state her birthday, yet unable to state where she is or what time of the year it is. Patient pupils are equal, round, and active to light. While talking to patient, patient states that she knows who I am and that she knows my father is , she also starts discussing other life details that are inaccurate. When reorienting patient that I am her nurse, she states I know and then presumes to tell me that she is concerned about a knife shaped shadow on the wall. Following that discussion, patient starts crying and stating that she just doesn't want to hurt anyone she loves and listing events that she regrets. Patient reoriented again and deescalated with verbal intervention.
[2022-12-25] MEDS: sodium chloride 0.9% 1,000 ML 75 ML IV ×2 (00:19→16:46)
[2022-12-25] MEDS: dilTIAZem 60 mg Tablet PO ×3 (00:19→18:01)
--- NOTE | 2022-12-25 03:20 | PC.NURSE ---
Confusion/agitation Oates catheter removed at 2229; no urine output noted since oates removal. At 023, patient refusing to attempt to void, stating I don't care what you're asking me to do, I'm not doing it. I know as well as you know that you're fishy and you're just trying to kill me. You just need to go to the bad place. I know all about it because I've been there. Verbal deescalation and reorientation provided to no avail. Patient getting more agitated, stating If you're going to kill me, then just do it. Verbal deescalation attempted again with no success. Dr. Saul notified; order received for 5 mg zyprexa IM and to perform bladder scan when able, insert oates catheter if urine remaining is >200 mls. See MAR for details. Patient additionally refusing lab draws at 329; lab to try again later.
[2022-12-25] MEDS: OLANZapine 10 mg VIAL 5 MG IM (03:24)
[2022-12-25] MEDS: meropenem 1,000 MG in sodium chloride 0.9% (plus) 50 ML 100 MG IV ×2 (06:03→18:13)
[2022-12-25 08:29] LABS: Basophils # 0.1 10^3/uL (0.0-0.1); Basophils % 0.5 %; Eosinophils # 0.4 10^3/uL (0.0-0.8); Eosinophils % 4.2 %; Hematocrit 35.4 % (37.0-47.0); Hemoglobin 10.9 g/dL (11.5-15.3); Lymphocytes # 3.3 10^3/uL (0.8-4.8); Lymphocytes % 36.1 %; Mean Corpuscular HGB Conc 30.8 g/dL (30.0-36.0); Mean Corpuscular Hemoglobin 33.3 pg (28.0-34.0); Mean Corpuscular Volume 108.3 fl (81-99); Monocytes # 1.4 10^3/uL (0.2-0.9); Monocytes % 15.1 %; Neutrophils # 3.69 10^3/uL (1.8-7.7); Neutrophils % 40.5 %; Nucleated Red Blood Cells % 0 %; Platelet Count 705 10^3/cmm (130-400); Red Blood Count 3.27 10^6/uL (4.1-5.3); Red Cell Distribution Width 19.1 % (12.1-15.1); White Blood Count 9.1 10^3/uL (4.0-10.0)
[2022-12-25] MEDS: metoprolol tartrate 25 mg Tablet PO ×2 (08:31→18:01)
[2022-12-25] MEDS: apixaban 5 mg Tablet PO ×2 (08:32→18:01)
[2022-12-25] MEDS: allopurinol 100 mg Tablet PO (08:32)
[2022-12-25] MEDS: ferrous sulfate EC 325 mg Tablet PO (08:32)
[2022-12-25 08:46] LABS: Estmated Average Glucose 94; Hemoglobin A1C 4.9 % (4.0-6.0)
[2022-12-25 08:52] LABS: Alanine Aminotransferase 7 U/L (0-33); Alkaline Phosphatase 82 U/L (35-105); Blood Urea Nitrogen 26 mg/dL (8-23); Calcium 8.7 mg/dL (8.5-10.5); Carbon Dioxide 29 mmol/L (22-29); Chloride 101 mmol/L (98-107); Chol HDL Ratio 3.28 mg/dL (0.0-4.40); Cholesterol 141 mg/dL (0-200); Glucose 97 mg/dL (65-115); HDL Cholesterol 43 mg/dL (60-100); LDL Cholesterol Calculated 79 mg/dL (50-129); LDL HDL Ratio 1.84 RATIO (0.00-3.22); Osmolality Calculated 297 mOsm/kg (285-295); Phosphorus 2.8 mg/dL (2.5-4.5); Sodium 141 mmol/L (136-145); Total Bilirubin 0.3 mg/dL (0.15-1.2); Triglycerides 96 mg/dL (0-150)
[2022-12-25 08:54] LABS: Anion Gap 15.3 (5-19); Aspartate Amino Transferase 16 U/L (0-32); Potassium 4.3 mmol/L (3.5-5.1)
[2022-12-25 09:07] LABS: Folate Level 3.1 ng/mL (4.8-37.3)
[2022-12-25] MEDS: nystatin powder 15 gm Btl 1 APPLIC TOPICAL ×2 (09:43→17:55)
--- NOTE | 2022-12-25 09:55 | PC.NURSE ---
While applying Nystatin to under her right breast pt reached up and pinched this nurse. Her groin and under her breasts are raw and excoriated. It upsets her to have these areas looked at and cleansed. Her daughter , Florina, was at bedside, so was Francesca ibarra and JULIANA Culp from [facility], during this event. Pt then needed to whisper to her daughter.
[2022-12-25] MEDS: magnesium sulfate premix 2 GM/50 ML PIGGYBACK IV (10:19)
[2022-12-25 11:30] LABS: Eosinophil Urine Eosinophils Seen; Urine Eosinophil Count 1 (0-0)
[2022-12-25] MEDS: pantoprazole 40 mg SDV IVP (18:01)
[2022-12-25] MEDS: vancomycin 1,500 MG/300 ML PIGGYBACK 200 MG IV (18:01)
--- NOTE | 2022-12-25 18:35 | PC.NURSE ---
Shift summary: Pt rested in bed throughout the shift. She started the day off confused and lethargic. Her mentation is improved this evening, she can recall her own . This am, She was suspicious and disagreeable about having her gown lifted to apply Nystatin powder this evening she was cooperative. Her daughter, Florina, came and stayed with her to help her be more comfortable and less afraid. She has had a poor appetite today, food intake half a popsicle and a few bites. She has drank little as well. She is back to her home amount of O2, 3lpm/NC. Florina stated she does does have [employer]. Urine output of 500ml this shift.
--- NOTE | 2022-12-25 20:21 | PM.PN ---
Subjective Subjective: Patient was reportedly paranoid overnight. This morning, she is severely encephalopathic. She is unable to provide any history due to encephalopathy. Medications: Reviewed: Yes Vitals/I&O/Wt Last Vital Signs Temp 96.4 F L 12/25/22 08:00 Pulse 94 12/25/22 19:25 Resp 16 12/25/22 19:25 BP 110/81 12/25/22 18:15 Pulse Ox 94 12/25/22 19:25 O2 Del Method Nasal Cannula 12/25/22 19:25 O2 Flow Rate 3 12/25/22 19:25 12/25/22 12/25/22 12/25/22 06:59 14:59 22:59 Intake Total 300 / 234.824 4414 / 1150 350 / 1500 Output Total 400 / 1000 500 / 500 Balance -100 / -149.330 2180 / 1150 -150 / 1000 Weight last 48 hrs Weight 124.556 kg Weight 127.006 kg Physical Exam Narrative: General: Patient is lethargic. Encephalopathic. Head: Normocephalic. Atraumatic. EOM intact. Neck: No JVD. Cardiovascular: No gallops. No murmurs. Lungs: Breath sounds are diminished bilateral bases, bilateral rhonchi, no rales Skin: No jaundice. No rashes. Abdomen: Normal bowel sounds, abdomen soft and nontender. Extremities: No cyanosis or clubbing. Musculoskeletal: No swollen or erythematous joints. Neurological: Moves all 4 extremities. No myoclonus. Oriented x1. Urinary Catheter Management: [place]: Cath Placed During This Visit: yes Reason for Continuing Indwelling Catheter: Acute Urinary Retention or Obstruction Urinary Catheter Date of Insertion: 12/25/22 Urinary Catheter Time of Insertion: 04:25 Data 12/25/22 08:05 12/25/22 08:05 Micro: Microbiology 12/24/22 16:11 Blood Culture - Preliminary Blood NEGATIVE TO DATE 12/24/22 15:32 Blood Culture - Preliminary Blood NEGATIVE TO DATE 12/24/22 23:39 MRSA Culture - Final Nose 12/24/22 16:03 Bacterial Antigens - Final Urine Kidney 12/24/22 16:03 Legionella Urinary Antigen - Final Unknown Source A&P Assessment and plan (1) Sepsis: Source: Pneumonia Endorgan damage: JONNATHAN , True monitoring Follow cultures Continue meropenem Continue vancomycin (2) Respiratory failure with hypoxia and hypercapnia: Acute on chronic respiratory failure Supplemental oxygen support as needed Treat underlying infection BiPAP as needed (3) Pneumonia: Antibiotics as above Pulmonary toilet (4) Atrial fibrillation with rapid ventricular response: Continue Cardizem drip, wean as tolerated Continue oral Cardizem Continue beta-jennifer Continue apixaban (5) Metabolic encephalopathy: Severe acute metabolic encephalopathy Treat underlying infection Monitor electrolytes Frequent reorientation Supportive care (6) Acute kidney injury: Status post IV fluids Imaging reviewed Strict I's and O's Daily weights Avoid nephrotoxins (7) Thrombocytosis: Likely related to sepsis Continue to monitor (8) Type 2 diabetes mellitus: ldSSI Avoid hypoglycemia Qualifiers: Diabetes mellitus senior living insulin use: without senior living use Diabetes mellitus complication status: with neurologic complications Diabetes mellitus complication detail: with polyneuropathy Qualified Code(s): E11.42 - Type 2 diabetes mellitus with diabetic polyneuropathy (9) DVT (deep venous thrombosis): Continue apixaban Qualifiers: DVT location: lower extremity Affected thrombotic vein of extremity: unspecified vein of extremity Chronicity: chronic Laterality: unspecified laterality Qualified Code(s): 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
[2022-12-25] MEDS: trazodone 50 mg Tablet PO (21:13)
[2022-12-25 21:25] LABS: Glucose Point of Care 111 mg/dL (70-110)
[2022-12-26] VITALS (93 sets, daily range): BP systolic 91–147; BP diastolic 48–95; PULSE 71–139; RESP 16–31; TEMP 36.5–37.1; O2SAT 86–97
[2022-12-26] MEDS: dilTIAZem 60 mg Tablet PO ×5 (02:31→23:11)
[2022-12-26] MEDS: sodium chloride 0.9% 1,000 ML 75 ML IV (05:00)
[2022-12-26 05:53] LABS: Basophils # 0.1 10^3/uL (0.0-0.1); Basophils % 0.9 %; Eosinophils # 0.5 10^3/uL (0.0-0.8); Eosinophils % 5.8 %; Hematocrit 34.3 % (37.0-47.0); Lymphocytes # 2.6 10^3/uL (0.8-4.8); Lymphocytes % 32.1 %; Mean Corpuscular HGB Conc 29.2 g/dL (30.0-36.0); Mean Corpuscular Hemoglobin 31.8 pg (28.0-34.0); Mean Corpuscular Volume 109.2 fl (81-99); Mean Platelet Volume 9.9 fL (7.4-10.4); Monocytes # 0.8 10^3/uL (0.2-0.9); Monocytes % 10.4 %; Neutrophils # 3.76 10^3/uL (1.8-7.7); Neutrophils % 46.6 %; Nucleated Red Blood Cells % 0 %; Platelet Count 574 10^3/cmm (130-400); Red Blood Count 3.14 10^6/uL (4.1-5.3); Red Cell Distribution Width 18.6 % (12.1-15.1); White Blood Count 8.1 10^3/uL (4.0-10.0)
[2022-12-26 06:15] LABS: Alanine Aminotransferase 6 U/L (0-33); Albumin Level 2.5 g/dL (3.5-5.2); Alkaline Phosphatase 76 U/L (35-105); Anion Gap 10.1 (5-19); Aspartate Amino Transferase 11 U/L (0-32); Blood Urea Nitrogen 17 mg/dL (8-23); Calcium 8.4 mg/dL (8.5-10.5); Carbon Dioxide 31 mmol/L (22-29); Chloride 105 mmol/L (98-107); Globulin 3.5 g/dL (1.3-4.6); Glucose 94 mg/dL (65-115); Magnesium 1.4 mg/dL (1.7-2.3); Osmolality Calculated 295 mOsm/kg (285-295); Phosphorus 2.2 mg/dL (2.5-4.5); Potassium 4.1 mmol/L (3.5-5.1); Sodium 142 mmol/L (136-145); Total Bilirubin 0.2 mg/dL (0.15-1.2)
[2022-12-26 06:20] LABS: Procalcitonin 0.05 ng/mL (0-0.5)
[2022-12-26] MEDS: meropenem 1,000 MG in sodium chloride 0.9% (plus) 50 ML 100 MG IV ×3 (06:26→23:10)
[2022-12-26 08:14] LABS: Glucose Point of Care 100 mg/dL (70-110)
[2022-12-26] MEDS: folic acid 1 mg Tablet PO (08:55)
[2022-12-26] MEDS: apixaban 5 mg Tablet PO ×2 (08:55→17:01)
[2022-12-26] MEDS: allopurinol 100 mg Tablet PO (08:55)
[2022-12-26] MEDS: ferrous sulfate EC 325 mg Tablet PO (08:55)
[2022-12-26] MEDS: metoprolol tartrate 25 mg Tablet PO ×2 (08:55→17:02)
[2022-12-26] MEDS: nystatin powder 15 gm Btl 1 APPLIC TOPICAL ×2 (09:02→17:02)
[2022-12-26] MEDS: magnesium sulfate premix 2 GM/50 ML PIGGYBACK IV (11:33)
[2022-12-26] MEDS: vancomycin 1,500 MG/300 ML PIGGYBACK 200 MG IV (11:34)
[2022-12-26 11:50] LABS: Glucose Point of Care 132 mg/dL (70-110)
--- NOTE | 2022-12-26 13:01 | PC.OT ---
OT EVALUATION ATTEMPTED AT 1300. PT SLEEPING SOUNDLY AND WILL NOT STAY AWAKE FOR EVAL. WILL REATTEMPT TOMORROW.
--- NOTE | 2022-12-26 13:09 | PM.PN ---
Subjective Subjective: Per report, patient still with some confusion, although better than before. Most her confusion overnight also had attempt of paranoia. Another daughter is bedside this morning and clearly very supportive of patient. She does note the patient does have a history of sundowning at night. Patient is much more awake and alert today. She is much more conversational than yesterday's exam. She reports that she is feeling better today. Endorses diffuse fatigue. Reports that she was terrified yesterday and that she was worried that she was developing pneumonia at the half-way. She denies fevers, chills, nausea or emesis. Daughter requested a voiding trial prior to discharge if possible. She reports catheter was placed several weeks ago while admitted to the another hospital where she was treated for volume overload and questionable cellulitis per daughter. Medications: Reviewed: Yes Vitals/I&O/Wt Last Vital Signs Temp 98.7 F 12/26/22 13:00 Pulse 84 12/26/22 13:00 Resp 26 H 12/26/22 13:00 BP 96/77 12/26/22 13:00 Pulse Ox 94 12/26/22 13:00 O2 Del Method Nasal Cannula 12/26/22 13:00 O2 Flow Rate 3 12/26/22 08:00 12/25/22 12/26/22 12/26/22 22:59 06:59 14:59 Intake Total 400 / 1550 917.5 / 2467.5 602.5 / 602.5 Output Total 1000 / 1000 400 / 1400 Balance -600 / 550 517.5 / 1067.5 602.5 / 602.5 Weight last 48 hrs Weight 124.738 kg Weight 124.556 kg Weight 127.006 kg Physical Exam Narrative: General: Patient is awake and alert. Very pleasant. Conversational. Head: Normocephalic. Atraumatic. EOM intact. Neck: No JVD. Cardiovascular: No gallops. No murmurs. Lungs: Breath sounds are diminished bilateral bases, bilateral rhonchi, no rales Skin: No jaundice. No rashes. Abdomen: Normal bowel sounds, abdomen soft and nontender. Extremities: No cyanosis or clubbing. Musculoskeletal: No swollen or erythematous joints. Neurological: Moves all 4 extremities. No myoclonus. Urinary Catheter Management: [place]: Cath Placed During This Visit: yes Reason for Continuing Indwelling Catheter: Acute Urinary Retention or Obstruction Urinary Catheter Date of Insertion: 12/25/22 Urinary Catheter Time of Insertion: 04:25 Data 12/26/22 05:37 12/26/22 05:37 Micro: Microbiology 12/24/22 16:03 Urine Culture - Preliminary Urine,Clean Catch Gram Negative Rods 12/24/22 16:11 Blood Culture - Preliminary Blood NEGATIVE TO DATE 12/24/22 15:32 Blood Culture - Preliminary Blood NEGATIVE TO DATE 12/24/22 23:39 MRSA Culture - Final Nose 12/24/22 16:03 Bacterial Antigens - Final Urine Kidney A&P Assessment and plan (1) Sepsis: Source: Pneumonia, CAUTI Endorgan damage: JONNATHAN, Encephalopathy Follow cultures Continue meropenem Continue vancomycin (2) Respiratory failure with hypoxia and hypercapnia: Acute on chronic respiratory failure Supplemental oxygen support as needed Treat underlying infection BiPAP as needed (3) UTI (urinary tract infection): Catheter associated urinary tract infection, present on admission Continue antibiotics as above Follow culture Voiding trial later this week (4) Pneumonia: Antibiotics as above Pulmonary toilet (5) Atrial fibrillation with rapid ventricular response: Currently off Cardizem drip, however heart rate still elevated, not at goal, mostly hovering around 110-120s Continue oral Cardizem Continue metoprolol tartrate 25 mg twice daily Continue apixaban Monitoring blood pressure closely, soft overnight, may consider bolus later today Considered amiodarone, may still need to initiate depending on blood pressure today (6) Metabolic encephalopathy: Severe acute metabolic encephalopathy, improving Treat underlying infection Monitor electrolytes Frequent reorientation Supportive care Encourage family participation with care, daughters are very supportive (7) Acute kidney injury: Resolved Stop maintenance fluids Encourage oral intake (8) Thrombocytosis: Secondary sepsis Continue to monitor (9) Type 2 diabetes mellitus: ldSSI Avoid hypoglycemia Qualifiers: Diabetes mellitus group home insulin use: without long term acute care registered nurse use Diabetes mellitus complication status: with neurologic complications Diabetes mellitus complication detail: with polyneuropathy Qualified Code(s): E11.42 - Type 2 diabetes mellitus with diabetic polyneuropathy (10) DVT (deep venous thrombosis): Continue apixaban Qualifiers: DVT location: lower extremity Affected thrombotic vein of extremity: unspecified vein of extremity Chronicity: chronic Laterality: unspecified laterality Qualified Code(s): 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 Coding Level of Care Code Acute Code for [facility] Diagnoses Sepsis A41.9 Respiratory failure with hypoxia and hypercapnia J96.91; J96.92 UTI (urinary tract infection) N39.0 Pneumonia J18.9 Atrial fibrillation with rapid ventricular response I48.91 Metabolic encephalopathy G93.41 Acute kidney injury N17.9 Thrombocytosis D75.839 Type 2 diabetes mellitus E11.42 Diabetes mellitus long term acute care registered nurse insulin use: without long term acute care registered nurse use Diabetes mellitus complication status: with neurologic complications Diabetes mellitus complication detail: with polyneuropathy DVT (deep venous thrombosis) I82.509 DVT location: lower extremity Affected thrombotic vein of extremity: unspecified vein of extremity Chronicity: chronic Laterality: unspecified laterality ILD (interstitial lung disease) J84.9 Physical deconditioning R53.81
[2022-12-26 16:54] LABS: Glucose Point of Care 119 mg/dL (70-110)
[2022-12-26] MEDS: pantoprazole 40 mg SDV IVP (17:01)
[2022-12-26] MEDS: trazodone 50 mg Tablet PO (21:05)
[2022-12-26 21:14] LABS: Glucose Point of Care 104 mg/dL (70-110)
[2022-12-27] VITALS (92 sets, daily range): BP systolic 94–151; BP diastolic 58–110; PULSE 82–136; RESP 16–34; TEMP 36.5–37.1; O2SAT 65–97
[2022-12-27 04:44] LABS: Basophils # 0.1 10^3/uL (0.0-0.1); Basophils % 0.7 %; Eosinophils # 0.4 10^3/uL (0.0-0.8); Eosinophils % 3.8 %; Hematocrit 35.3 % (37.0-47.0); Hemoglobin 10.6 g/dL (11.5-15.3); Lymphocytes % 30.3 %; Mean Corpuscular Hemoglobin 32.3 pg (28.0-34.0); Mean Corpuscular Volume 107.6 fl (81-99); Mean Platelet Volume 10.6 fL (7.4-10.4); Monocytes % 9.6 %; Neutrophils # 5.06 10^3/uL (1.8-7.7); Neutrophils % 51.1 %; Nucleated Red Blood Cells % 0.2 %; Platelet Count 567 10^3/cmm (130-400); Red Blood Count 3.28 10^6/uL (4.1-5.3); Red Cell Distribution Width 18.5 % (12.1-15.1); White Blood Count 9.9 10^3/uL (4.0-10.0)
[2022-12-27] MEDS: dilTIAZem 60 mg Tablet PO ×3 (05:47→17:35)
[2022-12-27] MEDS: vancomycin 1,500 MG/300 ML PIGGYBACK 200 MG IV (05:47)
[2022-12-27 06:00] LABS: Albumin Level 2.8 g/dL (3.5-5.2); Anion Gap 9.8 (5-19); Blood Urea Nitrogen 11 mg/dL (8-23); Calcium 8.9 mg/dL (8.5-10.5); Carbon Dioxide 31 mmol/L (22-29); Chloride 104 mmol/L (98-107); Glucose 105 mg/dL (65-115); Magnesium 1.5 mg/dL (1.7-2.3); Phosphorus 1.8 mg/dL (2.5-4.5); Potassium 3.8 mmol/L (3.5-5.1); Sodium 141 mmol/L (136-145)
[2022-12-27 06:47] LABS: Glucose Point of Care 107 mg/dL (70-110)
[2022-12-27] MEDS: meropenem 1,000 MG in sodium chloride 0.9% (plus) 50 ML 100 MG IV ×3 (08:13→22:14)
[2022-12-27] MEDS: ferrous sulfate EC 325 mg Tablet PO (08:14)
[2022-12-27] MEDS: metoprolol tartrate 25 mg Tablet PO ×2 (08:14→17:35)
[2022-12-27] MEDS: folic acid 1 mg Tablet PO (08:14)
[2022-12-27] MEDS: allopurinol 100 mg Tablet PO (08:14)
[2022-12-27] MEDS: apixaban 5 mg Tablet PO ×2 (08:14→17:34)
[2022-12-27] MEDS: magnesium sulfate premix 2 GM/50 ML PIGGYBACK IV (08:14)
[2022-12-27] MEDS: nystatin powder 15 gm Btl 1 APPLIC TOPICAL ×2 (08:15→17:35)
--- NOTE | 2022-12-27 08:49 | PC.SOCIAL ---
IMM Update Pg. 2 of IMM updated. Initialed, dated, and timed. Copy provided to patient and copy placed in chart.
--- NOTE | 2022-12-27 09:48 | P.PN_ITS ---
Subjective Subjective: Patient reportedly had an okay night. This morning she is slightly confused. She denies fevers, chills, nausea or emesis. Medications: Reviewed: Yes Vitals/I&O/Wt Last Vital Signs Temp 98.1 F 12/27/22 04:00 Pulse 101 H 12/27/22 08:00 Resp 16 12/27/22 08:00 BP 120/71 12/27/22 06:00 Pulse Ox 95 12/27/22 08:00 O2 Del Method Nasal Cannula 12/27/22 08:00 O2 Flow Rate 3 12/27/22 08:00 12/26/22 12/27/22 12/27/22 22:59 06:59 14:59 Intake Total 290 / 1432.5 50 / 1482.5 400 / 400 Output Total 200 / 700 900 / 1600 Balance 90 / 732.5 -850 / -117.5 400 / 400 Weight last 48 hrs Weight 127.459 kg Weight 124.738 kg Weight 124.556 kg Physical Exam Narrative: General: Patient is awake, slightly groggy. Not completely oriented this morning. Head: Normocephalic. Atraumatic. EOM intact. Neck: No JVD. Cardiovascular: No gallops. No murmurs. Lungs: Breath sounds are diminished bilateral bases, improving bilateral rhonchi, no rales Skin: No jaundice. No rashes. Abdomen: Normal bowel sounds, abdomen soft and nontender. Extremities: No cyanosis or clubbing. Musculoskeletal: No swollen or erythematous joints. Neurological: Moves all 4 extremities. No myoclonus. Urinary Catheter Management: [place]: Cath Placed During This Visit: yes Reason for Continuing Indwelling Catheter: Acute Urinary Retention or Obstruction Urinary Catheter Date of Insertion: 12/25/22 Urinary Catheter Time of Insertion: 04:25 Data 12/27/22 04:05 12/27/22 05:37 Micro: Microbiology 12/24/22 16:03 Urine Culture - Preliminary Urine,Clean Catch Gram Negative Rods A&P Assessment and plan (1) Sepsis: Source: Pneumonia, CAUTI Endorgan damage: JONNATHAN, Encephalopathy Follow cultures Continue meropenem Discontinue vancomycin (2) Respiratory failure with hypoxia and hypercapnia: Acute on chronic respiratory failure Supplemental oxygen support as needed Treat underlying infection BiPAP as needed (3) UTI (urinary tract infection): Catheter associated urinary tract infection, present on admission Continue antibiotics as above Follow culture with gram-negative rods, follow identification Voiding trial later this week (4) Pneumonia: Antibiotics as above Pulmonary toilet (5) Atrial fibrillation with rapid ventricular response: Heart rate still elevated Continue oral Cardizem Continue metoprolol tartrate 25 mg twice daily May consider adjustment of rate control medications pending blood pressure and heart rate response Continue apixaban (6) Metabolic encephalopathy: Severe acute metabolic encephalopathy, overall improving Treat underlying infection Monitor electrolytes Frequent reorientation Supportive care Encourage family participation with care, daughters are very supportive (7) Thrombocytosis: Secondary sepsis Continue to monitor (8) Type 2 diabetes mellitus: ldSSI Avoid hypoglycemia Qualifiers: Diabetes mellitus penitentiary insulin use: without penitentiary use Diabetes mellitus complication status: with neurologic complications Diabetes mellitus complication detail: with polyneuropathy Qualified Code(s): E11.42 - Type 2 diabetes mellitus with diabetic polyneuropathy (9) DVT (deep venous thrombosis): Continue apixaban Qualifiers: DVT location: lower extremity Affected thrombotic vein of extremity: unspecified vein of extremity Chronicity: chronic Laterality: unspecified laterality Qualified Code(s): I82.509 - Chronic embolism and thrombosis of unspecified deep veins of unspecified lower extremity (10) ILD (interstitial lung disease): With chronic hypoxic respiratory failure on 3 L baseline (11) Physical deconditioning: Debility and physical deconditioning Therapy (12) Acute kidney injury: Resolved Plan DVT prophylaxis: Apixaban CODE STATUS: DNR Attestations Medical Necessity Statement*: She requires ongoing hospitalization as patient remains septic requiring IV antibiotics, therapy, and supportive care Coding Level of Care Code Acute Code for [facility] Diagnoses Sepsis A41.9 Respiratory failure with hypoxia and hypercapnia J96.91; J96.92 UTI (urinary tract infection) N39.0 Pneumonia J18.9 Atrial fibrillation with rapid ventricular response I48.91 Metabolic encephalopathy G93.41 Thrombocytosis D75.839 Type 2 diabetes mellitus E11.42 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
[2022-12-27 11:58] LABS: Glucose Point of Care 148 mg/dL (70-110)
[2022-12-27] MEDS: insulin lispro 100 unit/1 mL SUBCUT (12:33)
[2022-12-27 16:29] LABS: Glucose Point of Care 106 mg/dL (70-110)
[2022-12-27] MEDS: pantoprazole 40 mg SDV IVP (17:34)
[2022-12-27] MEDS: phosphorus 250 mg Tablet PO (17:35)
[2022-12-27 20:47] LABS: Glucose Point of Care 112 mg/dL (70-110)
[2022-12-27] MEDS: trazodone 50 mg Tablet PO (20:48)
[2022-12-27] MEDS: efferdent effervescent 1 EACH DENTAL (22:51)
[2022-12-28] VITALS (33 sets, daily range): BP systolic 95–149; BP diastolic 53–110; PULSE 76–116; RESP 15–30; TEMP 36.7–36.9; O2SAT 85–97
[2022-12-28] MEDS: dilTIAZem 60 mg Tablet PO ×4 (00:11→17:17)
[2022-12-28 04:50] LABS: Basophils # 0.1 10^3/uL (0.0-0.1); Basophils % 0.7 %; Eosinophils # 0.3 10^3/uL (0.0-0.8); Hematocrit 32.9 % (37.0-47.0); Lymphocytes % 31.2 %; Mean Corpuscular HGB Conc 30.4 g/dL (30.0-36.0); Mean Corpuscular Hemoglobin 32.7 pg (28.0-34.0); Mean Corpuscular Volume 107.5 fl (81-99); Mean Platelet Volume 10.1 fL (7.4-10.4); Monocytes # 0.9 10^3/uL (0.2-0.9); Monocytes % 9.7 %; Neutrophils # 4.87 10^3/uL (1.8-7.7); Neutrophils % 51.2 %; Nucleated Red Blood Cells % 0 %; Platelet Count 495 10^3/cmm (130-400); Red Blood Count 3.06 10^6/uL (4.1-5.3); Red Cell Distribution Width 18.3 % (12.1-15.1); White Blood Count 9.5 10^3/uL (4.0-10.0)
[2022-12-28 05:15] LABS: Albumin Level 2.6 g/dL (3.5-5.2); Anion Gap 10.5 (5-19); Blood Urea Nitrogen 8 mg/dL (8-23); Calcium 8.6 mg/dL (8.5-10.5); Carbon Dioxide 30 mmol/L (22-29); Chloride 107 mmol/L (98-107); Glucose 97 mg/dL (65-115); Magnesium 1.5 mg/dL (1.7-2.3); Potassium 3.5 mmol/L (3.5-5.1); Sodium 144 mmol/L (136-145)
[2022-12-28] MEDS: meropenem 1,000 MG in sodium chloride 0.9% (plus) 50 ML 100 MG IV (06:06)
[2022-12-28 07:54] LABS: Glucose Point of Care 99 mg/dL (70-110)
[2022-12-28] MEDS: magnesium sulfate premix 4 GM/100 ML PREMIX IV (08:56)
[2022-12-28] MEDS: apixaban 5 mg Tablet PO ×2 (09:03→17:17)
[2022-12-28] MEDS: phosphorus 250 mg Tablet PO ×2 (09:03→17:16)
[2022-12-28] MEDS: ferrous sulfate EC 325 mg Tablet PO (09:03)
[2022-12-28] MEDS: allopurinol 100 mg Tablet PO (09:03)
[2022-12-28] MEDS: folic acid 1 mg Tablet PO (09:04)
[2022-12-28] MEDS: metoprolol tartrate 25 mg Tablet PO ×2 (09:04→17:16)
[2022-12-28] MEDS: nystatin powder 15 gm Btl 1 APPLIC TOPICAL ×2 (09:05→17:21)
[2022-12-28 11:55] LABS: Glucose Point of Care 123 mg/dL (70-110)
--- NOTE | 2022-12-28 13:12 | PM.PN ---
Subjective Subjective: Patient is awake and alert. She denies any fevers, chills, nausea or emesis. Reports appetite is okay. Denies other new complaints. Medications: Reviewed: Yes Vitals/I&O/Wt Last Vital Signs Temp 98.5 F 12/28/22 00:00 Pulse 106 H 12/28/22 10:00 Resp 24 H 12/28/22 10:00 BP 135/77 12/28/22 10:00 Pulse Ox 96 12/28/22 10:00 O2 Del Method Nasal Cannula 12/28/22 09:00 O2 Flow Rate 3 12/28/22 09:00 12/27/22 12/28/22 12/28/22 22:59 06:59 14:59 Intake Total 650 / 1530 200 / 1730 Output Total 1100 / 1100 400 / 1500 Balance -450 / 430 -200 / 230 Weight last 48 hrs Weight 124.556 kg Weight 127.459 kg Physical Exam Narrative: General: Patient is awake and alert. Lying in bed. Head: Normocephalic. Atraumatic. EOM intact. Neck: No JVD. Cardiovascular: No gallops. No murmurs. Lungs: Breath sounds are diminished bilateral bases, improving bilateral rhonchi, no rales Skin: No jaundice. No rashes. Abdomen: Normal bowel sounds, abdomen soft and nontender. Extremities: No cyanosis or clubbing. Musculoskeletal: No swollen or erythematous joints. Neurological: Moves all 4 extremities. No myoclonus. Urinary Catheter Management: [place]: Cath Placed During This Visit: yes Reason for Continuing Indwelling Catheter: Accurate Measurement of Urinary Output in Critically Ill Patients Urinary Catheter Date of Insertion: 12/25/22 Urinary Catheter Time of Insertion: 04:25 Data 12/28/22 04:07 12/28/22 04:07 Micro: Microbiology 12/24/22 16:03 Urine Culture - Final Urine,Clean Catch Escherichia coli esbl A&P Assessment and plan (1) Sepsis: Source: Pneumonia, CAUTI Endorgan damage: JONNATHAN, Encephalopathy Follow cultures Discontinue meropenem Start levofloxacin (2) Respiratory failure with hypoxia and hypercapnia: Acute on chronic respiratory failure Supplemental oxygen support as needed Treat underlying infection BiPAP as needed (3) UTI (urinary tract infection): Catheter associated urinary tract infection, present on admission Continue antibiotics as above Follow culture with ESBL E. coli Antibiotics as noted above (4) Pneumonia: Antibiotics as above Pulmonary toilet (5) Atrial fibrillation with rapid ventricular response: Continue oral Cardizem at current dosing Continue metoprolol tartrate 25 mg twice daily Continue apixaban (6) Metabolic encephalopathy: Mentation seems to be close if not at baseline now Treat underlying infection Monitor electrolytes Frequent reorientation Supportive care Encourage family participation with care, daughters are very supportive (7) Thrombocytosis: Secondary sepsis, improving with treatment Continue to monitor (8) Type 2 diabetes mellitus: ldSSI Avoid hypoglycemia Qualifiers: Diabetes mellitus complication detail: with polyneuropathy Diabetes mellitus complication status: with neurologic complications Diabetes mellitus oysterman insulin use: without detention use Qualified Code(s): E11.42 - Type 2 diabetes mellitus with diabetic polyneuropathy (9) DVT (deep venous thrombosis): Continue apixaban Qualifiers: Affected thrombotic vein of extremity: unspecified vein of extremity Chronicity: chronic DVT location: lower extremity Laterality: unspecified laterality Qualified Code(s): I82.509 - Chronic embolism and thrombosis of unspecified deep veins of unspecified lower extremity (10) ILD (interstitial lung disease): With chronic hypoxic respiratory failure on 3 L baseline (11) Physical deconditioning: Debility and physical deconditioning Therapy (12) Acute kidney injury: Resolved Plan DVT prophylaxis: Apixaban CODE STATUS: DNR Attestations Medical Necessity Statement*: Patient requires ongoing hospitalization for treatment of sepsis, UTI, pneumonia, and supportive care. Coding Level of Care Code Acute Code for [facility] Diagnoses Sepsis A41.9 Respiratory failure with hypoxia and hypercapnia J96.91; J96.92 UTI (urinary tract infection) N39.0 Pneumonia J18.9 Atrial fibrillation with rapid ventricular response I48.91 Metabolic encephalopathy G93.41 Thrombocytosis D75.839 Type 2 diabetes mellitus E11.42 Diabetes mellitus complication detail: with polyneuropathy Diabetes mellitus complication status: with neurologic complications Diabetes mellitus detention insulin use: without detention use DVT (deep venous thrombosis) I82.509 Affected thrombotic vein of extremity: unspecified vein of extremity Chronicity: chronic DVT location: lower extremity Laterality: unspecified laterality ILD (interstitial lung disease) J84.9 Physical deconditioning R53.81 Acute kidney injury N17.9
[2022-12-28] MEDS: levoFLOXacin 750 mg Tablet PO (13:30)
--- NOTE | 2022-12-28 14:25 | PC.NURSE ---
1420 Removed oates catheter, all intact,removed 9ml saline. No complaints.
--- NOTE | 2022-12-28 14:49 | PC.NURSE ---
1440 Transfered patient to [facility] via wheelchair with small personal pillow and daughter at bedside. No c/o's. Ask to stay sitting up in wheelchair in new room. N
[2022-12-28 16:39] LABS: SARS Covid-2 Antigen negative (Negative)
[2022-12-28 17:02] LABS: Glucose Point of Care 119 mg/dL (70-110)
[2022-12-28] MEDS: pantoprazole 40 mg SDV IVP (17:16)
[2022-12-28] MEDS: fixodent 39 gm Tube 1 APPLIC DENTAL (18:01)
[2022-12-28] MEDS: trazodone 50 mg Tablet PO (20:39)
[2022-12-28 20:47] LABS: Glucose Point of Care 121 mg/dL (70-110)
[2022-12-29] VITALS: BP 123/65; PULSE 103; RESP 18; TEMP 36.9; O2SAT 96
[2022-12-29] MEDS: dilTIAZem 60 mg Tablet PO ×3 (01:06→12:44)
[2022-12-29 04:00] VITALS: BP 118/77; PULSE 102; RESP 15; TEMP 36.8; O2SAT 93
[2022-12-29 05:17] VITALS: PULSE 99
[2022-12-29] MEDS: levoFLOXacin 750 mg Tablet PO (06:25)
[2022-12-29 06:45] LABS: Glucose Point of Care 113 mg/dL (70-110)
[2022-12-29 07:15] VITALS: PULSE 102; RESP 18; O2SAT 92
[2022-12-29 08:00] VITALS: BP 115/71; PULSE 87; RESP 16; TEMP 36.4; O2SAT 94
[2022-12-29] MEDS: ferrous sulfate EC 325 mg Tablet PO (08:48)
[2022-12-29] MEDS: allopurinol 100 mg Tablet PO (08:48)
[2022-12-29] MEDS: phosphorus 250 mg Tablet PO (08:48)
[2022-12-29] MEDS: apixaban 5 mg Tablet PO (08:49)
[2022-12-29] MEDS: folic acid 1 mg Tablet PO (08:49)
[2022-12-29] MEDS: metoprolol tartrate 25 mg Tablet PO (08:49)
--- NOTE | 2022-12-29 10:13 | PM.DCS ---
Discharge Providers Date of Admission: 12/24/22 18:00 Date of Discharge: December 29, 2022 Attending Provider at Admission: Lg Cobos MD Attending Provider at Discharge: Breezy Ignacio MD Primary Care Provider: Stefany Jaime MD Diagnoses at Discharge Discharge Diagnosis (1) Sepsis: Status: Acute (2) Respiratory failure with hypoxia and hypercapnia: Status: Acute (3) UTI (urinary tract infection): Status: Acute (4) Pneumonia: Status: Acute (5) Atrial fibrillation with rapid ventricular response: Status: Acute (6) Metabolic encephalopathy: Status: Acute (7) Thrombocytosis: Status: Acute (8) Type 2 diabetes mellitus: Status: Chronic Qualifiers: Diabetes mellitus terminal makeup operator insulin use: without terminal makeup operator use Diabetes mellitus complication status: with neurologic complications Diabetes mellitus complication detail: with polyneuropathy Qualified Code(s): E11.42 - Type 2 diabetes mellitus with diabetic polyneuropathy (9) DVT (deep venous thrombosis): Status: Chronic Qualifiers: DVT location: lower extremity Affected thrombotic vein of extremity: unspecified vein of extremity Chronicity: chronic Laterality: unspecified laterality Qualified Code(s): I82.509 - Chronic embolism and thrombosis of unspecified deep veins of unspecified lower extremity (10) ILD (interstitial lung disease): Status: Chronic Permanent problem details: 3L BNC continous (11) Physical deconditioning: Status: Acute (12) Acute kidney injury: Status: Acute Reason for Visit Reason for Visit: [facility] Hospital Course Hospital Course Nanci Sandoval is a 77-year-old female with past medical history significant for deep vein thrombosis on anticoagulation, fibromyalgia, gout, hyperlipidemia, hypertension, interstitial lung disease with chronic hypoxic respiratory failure, obstructive sleep apnea, and type 2 diabetes mellitus who presented with altered mental status, found to have sepsis secondary to catheter associated urinary tract infection as well as community-acquired pneumonia. She was treated with broad-spectrum antibiotics with improvement in symptoms. She was found to have ESBL E. coli urinary tract infection. It was sensitive to levofloxacin which she was rotated to. Patient was also found to have atrial fibrillation with rapid ventricular rate initially treated with Cardizem drip and rotated to oral Cardizem. Symptomatology improved. Patient discharged back to nursing facility stable condition. Physical Exam Narrative: General: Patient is awake and alert. Sitting in bed side chair. Head: Normocephalic. Atraumatic. EOM intact. Neck: No JVD. Cardiovascular: RRR. No gallops. No murmurs. No peripheral edema. Lungs: Clear to auscultation, no use of accessory muscles, no crackles or wheezes. Skin: No jaundice. No rashes. Abdomen: Normal bowel sounds, abdomen soft and nontender. Extremities: No cyanosis or clubbing. Musculoskeletal: No swollen or erythematous joints. Neurological: Moves all 4 extremities. No myoclonus. Urinary Catheter Management: [place]: Cath Placed During This Visit: yes Reason for Continuing Indwelling Catheter: Accurate Measurement of Urinary Output in Critically Ill Patients Urinary Catheter Date of Insertion: 12/25/22 Urinary Catheter Time of Insertion: 04:25 Discharge Data Studies Completed and Pending Completed Studies During Hospitalization Category [place] [id number] Stat Cat Scan 12/24/22 17:[address] head wo con* [id number] Stat Cat Scan 12/24/22 15:14 Completed XR chest 1V portable [id number] Stat Exams 12/24/22 15:14 Completed Pending at discharge Category Date Time Status Blood Culture Stat Lab 12/24/22 16:11 Results SARS Covid-2 Antigen Routine Lab 12/29/22 09:30 Received Radiology Impressions Chest X-Ray 12/24/22 15:14 IMPRESSION: Multifocal pneumonia most conspicuous in the left lung base and right upper lobe with small left pleural effusion. Head CT 12/24/22 15:14 IMPRESSION: No acute intracranial abnormality. Chest/Abdomen/Pelvis CT 12/24/22 17:30 IMPRESSION: 1. Multifocal pneumonia again present. Recommend follow-up after treatment. 2. Large hiatal hernia is unchanged. IMPRESSION: 1. 5 mm stone is seen in the distal right ureter. Minimal right pelviectasis is similar to previous suggesting the stone is not significantly obstructing. 2. Nonspecific bilateral perinephric stranding. Correlate with urinalysis for infection. COMMENTS: Consistent with the [employer]'s Incidental Findings Committee white paper (J Am Miki Radiol 2018): Any incidental renal lesion less than 1 cm or classified as too small to characterize, or any incidental cystic renal lesion characterized as simple-appearing, is likely benign. No follow-up imaging is recommended for these lesions per consensus recommendations based on imaging criteria. Laboratory Results WBC 9.5 10^3/uL (4.0-10.0) 12/28/22 04:07 RBC 3.06 10^6/uL (4.1-5.3) L 12/28/22 04:07 Hgb 10.0 g/dL (11.5-15.3) L 12/28/22 04:07 Hct 32.9 % (37.0-47.0) L 12/28/22 04:07 MCV 107.5 fl (81-99) H 12/28/22 04:07 MCH 32.7 pg (28.0-34.0) 12/28/22 04:07 MCHC 30.4 g/dL (30.0-36.0) 12/28/22 04:07 RDW 18.3 % (12.1-15.1) H 12/28/22 04:07 Plt Count 495 10^3/cmm (130-400) H 12/28/22 04:07 MPV 10.1 fL (7.4-10.4) 12/28/22 04:07 Neut % (Auto) 51.2 % 12/28/22 04:07 Lymph % (Auto) 31.2 % 12/28/22 04:07 [place] % (Auto) 9.7 % 12/28/22 04:07 Eos % (Auto) 3.0 % 12/28/22 04:07 Baso % (Auto) 0.7 % 12/28/22 04:07 Neut # (Auto) 4.87 10^3/uL (1.8-7.7) 12/28/22 04:07 Lymph # (Auto) 3.0 10^3/uL (0.8-4.8) 12/28/22 04:07 [place] # (Auto) 0.9 10^3/uL (0.2-0.9) 12/28/22 04:07 Eos # (Auto) 0.3 10^3/uL (0.0-0.8) 12/28/22 04:07 Baso # (Auto) 0.1 10^3/uL (0.0-0.1) 12/28/22 04:07 Nucleated RBC % (auto) 0 % 12/28/22 04:07 Nucleated RBCs # 0.0 /100WBC 12/28/22 04:07 Specimen Type Arterial 12/24/22 16:40 Sample Site Radial, right 12/24/22 16:40 ABG pH 7.44 (7.35-7.45) 12/24/22 16:40 ABG pCO2 52.6 mmHg (35-45) H 12/24/22 16:40 ABG pO2 58.0 mmHg (80.0-100.0) L 12/24/22 16:40 ABG HCO3 35.9 mmol/L (22-26) H 12/24/22 16:40 ABG O2 Saturation 90.4 12/24/22 16:40 ABG Base Excess 10.1 mmol/L (-2.0-2.0) H 12/24/22 16:40 Real Test Pos 12/24/22 16:40 A-a O2 Gradient 17.5 mmHg (5-10) H 12/24/22 16:40 Hematocrit 35.7 % (37-47) L 12/24/22 16:40 Hgb O2 Saturation 89.2 % (95-100) L 12/24/22 16:40 Carboxyhemoglobin 1.3 %THgb (0.4-20.1) 12/24/22 16:40 Methemoglobin 0.1 % (0.4-1.5) L 12/24/22 16:40 Total Hemoglobin 11.7 g/dL (12-16) L 12/24/22 16:40 Sodium 143.0 mmol/L (131-143) 12/24/22 16:40 Potassium 3.8 mmol/L (3.5-5.0) 12/24/22 16:40 Glucose 112.0 mg/dL (70-115) 12/24/22 16:40 Ionized Calcium 1.2 mmol/L (1.1-1.4) 12/24/22 16:40 O2 Delivery Device Nc 12/24/22 16:40 O2 Liters/Min 4.0 % 12/24/22 16:40 FiO2 36.0 % 12/24/22 16:40 Signal Integrity Engineer ID [email or web address] 12/24/22 16:40 Sodium 144 mmol/L (136-145) 12/28/22 04:07 Potassium 3.5 mmol/L (3.5-5.1) 12/28/22 04:07 Chloride 107 mmol/L (98-107) 12/28/22 04:07 Carbon Dioxide 30 mmol/L (22-29) H 12/28/22 04:07 Anion Gap 10.5 (5-19) 12/28/22 04:07 BUN 8 mg/dL (8-23) 12/28/22 04:07 Creatinine 0.7 mg/dL (0.5-0.9) 12/28/22 04:07 GFR Calculation Not Reportable 12/28/22 04:07 Glucose 97 mg/dL (65-115) 12/28/22 04:07 POC Glucose 113 mg/dL (70-110) H 12/29/22 06:33 Estimat Average Glucose 94 12/24/22 15:32 Hemoglobin A1c 4.9 % (4.0-6.0) 12/24/22 15:32 Calculated Osmolality 295 mOsm/kg (285-295) 12/26/22 05:37 Lactic Acid 1.1 mmol/L (0.5-2.2) 12/24/22 15:32 Calcium 8.6 mg/dL (8.5-10.5) 12/28/22 04:07 Phosphorus 2.0 mg/dL (2.5-4.5) L 12/28/22 04:07 Magnesium 1.5 mg/dL (1.7-2.3) L 12/28/22 04:07 Iron 33 ug/dL (37-145) L 12/24/22 15:32 TIBC 267 mcg/dl 12/24/22 15:32 % Saturation 12.3 % (20-50) L 12/24/22 15:32 Unsat Iron Binding 234 ug/dL (112-347) 12/24/22 15:32 Total Bilirubin 0.2 mg/dL (0.15-1.2) 12/26/22 05:37 AST 11 U/L (0-32) 12/26/22 05:37 ALT 6 U/L (0-33) 12/26/22 05:37 Alkaline Phosphatase 76 U/L (35-105) 12/26/22 05:37 Ammonia 19 umol/L (11-51) 12/24/22 19:01 Troponin T Baseline 20 ng/L (0-10) H 12/24/22 15:32 Troponin T 120 Minute 20.10 ng/L (0-10) H 12/24/22 19:01 Delta Troponin T 0.10 ABS# (0-10) 12/24/22 19:01 Troponin T Hi Sens 6Hr 21.67 ng/L (0-10) H 12/24/22 21:21 Troponin T Hi Sens 6Hr Delta 1.67 ng/L (0-12) 12/24/22 21:21 NT-Pro-B Natriuret Pep 1657 pg/mL (0-450) H 12/24/22 15:32 Total Protein 6.0 g/dL (6.6-8.7) L 12/26/22 05:37 Albumin 2.6 g/dL (3.5-5.2) L 12/28/22 04:07 Globulin 3.5 g/dL (1.3-4.6) 12/26/22 05:37 Triglycerides 96 mg/dL (0-150) 12/25/22 08:05 Triglycerides Cancelled 12/25/22 08:05 Cholesterol 141 mg/dL (0-200) 12/25/22 08:05 Cholesterol Cancelled 12/25/22 08:05 LDL Cholesterol, Calc 79 mg/dL (50-129) 12/25/22 08:05 LDL Cholesterol, Calc Cancelled 12/25/22 08:05 HDL Cholesterol 43 mg/dL (60-100) L 12/25/22 08:05 HDL Cholesterol Cancelled 12/25/22 08:05 LDL/HDL Ratio 1.84 RATIO (0.00-3.22) 12/25/22 08:05 LDL/HDL Ratio Cancelled 12/25/22 08:05 Cholesterol/HDL Ratio 3.28 mg/dL (0.0-4.40) 12/25/22 08:05 Cholesterol/HDL Ratio Cancelled 12/25/22 08:05 Lipase 12 U/L (13-60) L 12/24/22 15:32 Vitamin B12 437 pg/mL (232-1245) 12/24/22 15:32 Folate 3.1 ng/mL (4.8-37.3) L 12/25/22 08:05 Procalcitonin 0.05 ng/mL (0-0.5) 12/26/22 05:37 TSH 2.48 uIU/mL (0.27-4.20) 12/24/22 15:32 Urine Color Yellow (Yellow) 12/24/22 16:03 Urine Appearance Cloudy (CLEAR) A 12/24/22 16:03 Urine pH 5 (5-7) 12/24/22 16:03 Ur Specific [place] 1.010 (1.005-1.030) 12/24/22 16:03 Urine Protein Trace (Negative) 12/24/22 16:03 Urine Glucose (UA) Norm (Normal) 12/24/22 16:03 Urine Ketones Negative (Negative) 12/24/22 16:03 Urine Blood 2+ (Negative) H 12/24/22 16:03 Urine Nitrate Negative (Negative) 12/24/22 16:03 Urine Bilirubin Neg (Negative) 12/24/22 16:03 Urine Urobilinogen Norm mg/dL (Negative) 12/24/22 16:03 Ur Leukocyte Esterase 2+ (Negative) H 12/24/22 16:03 Urine RBC 5-10 /hpf (0-2) H 12/24/22 16:03 Urine WBC Too numerous to cnt /hpf (0-5) H 12/24/22 16:03 Ur Eosinophil Smear 1 (0-0) H 12/25/22 10:00 Ur Squamous Epith Cells 5-10 /hpf (0-5) H 12/24/22 16:03 Amorphous Sediment Not Reportable 12/24/22 16:03 Urine Bacteria 2+ /hpf (NONE) H 12/24/22 16:03 Urine Eosinophils Eosinophils seen H 12/25/22 10:00 Ur Random Sodium 52 mmol/L 12/24/22 16:03 Ur Random Potassium 44 mmol/L 12/24/22 16:03 Ur Random Chloride 55 mmol/L 12/24/22 16:03 Urine Creatinine 90 mg/dL (28-217) 12/24/22 16:03 Nasal Influ A H1 2008 PCR Not detected (NOT DETECT) 12/24/22 18:10 Urine Opiates Screen Positive ng/mL (Negative) H 12/24/22 16:03 Ur Barbiturates Screen Negative ng/mL (Negative) 12/24/22 16:03 Ur Phencyclidine Scrn Negative ng/mL (Negative) 12/24/22 16:03 Ur Amphetamines Screen Negative ng/mL (Negative) 12/24/22 16:03 U Benzodiazepines Scrn Negative ng/mL (Negative) 12/24/22 16:03 Urine Cocaine Screen Negative ng/mL (Negative) 12/24/22 16:03 U Marijuana (THC) Screen Negative ng/mL (Negative) 12/24/22 16:03 Adenovirus (PCR) Not detected (NOT DETECT) 12/24/22 18:10 C. pneumoniae DNA (PCR) Not detected (NOT DETECT) 12/24/22 18:10 Coronavirus 229E (PCR) Not detected (NOT DETECT) 12/24/22 18:10 Human Metapneumovir PCR Not detected (NOT DETECT) 12/24/22 18:10 Influenza A (H1) PCR Not detected (NOT DETECT) 12/24/22 18:10 Influenza A (H3) PCR Not detected (NOT DETECT) 12/24/22 18:10 Influenza Type A (PCR) Not detected (NOT DETECT) 12/24/22 18:10 Influenza Type B (PCR) Not detected (NOT DETECT) 12/24/22 18:10 M. pneumoniae (PCR) Not detected (NOT DETECT) 12/24/22 18:10 Parainfluenza 1 (PCR) Not detected (NOT DETECT) 12/24/22 18:10 Parainfluenza 2 (PCR) Not detected (NOT DETECT) 12/24/22 18:10 Parainfluenza 3 (PCR) Not detected (NOT DETECT) 12/24/22 18:10 Parainfluenza 4 (PCR) Not detected (NOT DETECT) 12/24/22 18:10 RSV Type A (PCR) Not detected (NOT DETECT) 12/24/22 18:10 RSV Type B (PCR) Not detected (NOT DETECT) 12/24/22 18:10 Entero/Rhino (PCR) Not detected (NOT DETECT) 12/24/22 18:10 SARS-CoV-2 (PCR) Not detected (NOT DETECT) 12/24/22 18:10 SARS-CoV-2 Ag (Rapid) negative (Negative) 12/28/22 16:03 Vitals Last Vital Signs Temp 97.6 F 12/29/22 08:00 Pulse 87 12/29/22 08:00 Resp 16 12/29/22 08:00 BP 115/71 12/29/22 08:00 Pulse Ox 94 12/29/22 08:00 O2 Del Method Nasal Cannula 12/29/22 08:00 O2 Flow Rate 3 12/29/22 07:15 Discharge Plan Discharge Patient Disposition: Xfer SNF Condition: Stable Prescriptions: New folic acid 1 mg Tablet 1 mg PO DAILY 30 Days Qty: 30 0RF levofloxacin 750 mg Tablet 750 mg PO DAILY@0600 5 Days Qty: 5 0RF Continued (DME) lancets Misc See Rx Instructions .ROUTE .MEDSUPPLY Qty: 50 Rx Instructions: As directed (DME) blood sugar diagnostic Strip See Rx Instructions .ROUTE .MEDSUPPLY Qty: 10 Rx Instructions: As directed ertapenem [Invanz] 1 gram recon soln 1 g IM .Q7days febuxostat [Uloric] 40 mg tablet 40 mg PO DAILY Qty: 30 3RF ferrous sulfate 325 mg (65 mg iron) tablet,delayed release (DR/EC) 325 mg PO DAILY Rx Instructions: PT ALSO TAKE AN OTC IRON PILL, BUT IS UNSURE OF THE MG. All Day Allergy (cetirizine) 10 mg capsule 10 mg PO DAILY Qty: 90 3RF montelukast 10 mg tablet 10 mg PO DAILY Qty: 30 6RF potassium chloride 10 mEq tablet extended release 10 meq PO DAILY Qty: 30 11RF venlafaxine 150 mg capsule,extended release 24hr 150 mg PO DAILY Qty: 90 3RF furosemide 80 mg tablet 40 mg PO BID PRN (Reason: edema) allopurinol 100 mg tablet 100 mg PO DAILY metoprolol tartrate 25 mg tablet 25 mg PO BID aspirin [Adult Aspirin Regimen] 81 mg tablet,delayed release (DR/EC) 81 mg PO DAILY losartan 100 mg tablet 100 mg PO DAILY Qty: 90 3RF Protonix 40 mg tablet,delayed release (DR/EC) 40 mg PO BID Qty: 60 1RF metformin 1,000 mg tablet 1,000 mg PO BID 30 Days Qty: 60 11RF trazodone 50 mg Tablet 50 mg PO QPM Dulcolax (bisacodyl) 10 mg Suppository 10 mg [place] DAILY PRN (Reason: Constipation) gabapentin 300 mg capsule 600 mg PO BID acetaminophen 325 mg Capsule 650 mg PO QID PRN (Reason: Pain) Calcium 600 + D(3) 600 mg-10 mcg (400 unit) Tablet 1 tab PO DAILY budesonide-formoterol 160-4.5 mcg/actuation Hfa Aerosol Inhaler 2 puff INHALATION BID Calmoseptine 0.44-20.6 % Ointment 1 applic TOPICAL QID PRN (Reason: PREVENTION) Eliquis 5 mg tablet 5 mg PO BID methotrexate 2.5 mg/mL Solution 15 mg PO Q7D Rx Instructions: ON SUNDAY Changed diltiazem HCl 120 mg capsule,ext.rel 24h degradable 240 mg PO QAM 30 Days Qty: 60 0RF Discharge Orders: Discharge Order (Routine); Ordered 12/29/22 Ordered By: Breezy Ignacio Referrals: [facility] [Outside] Willi Ba MD [Referring] - Discharge Diet: Advance as tolerated and Usual diet Discharge Activity: Resume usual activity and Increase activity as tolerated Patient Instructions: Opioid Safety Activity Restrictions/Additional Instructions: 1. Take medications as described 2. Follow-up with providers. Discharge Attestations Time Spent in Discharge Care*: greater than 30 min Quality Metrics Clinical Quality Measures [ No reported AMI, CVA or VTE this stay] Coding Level of Care Code Acute Code for Chg Fwd Diagnoses Sepsis A41.9 Respiratory failure with hypoxia and hypercapnia J96.91; J96.92 UTI (urinary tract infection) N39.0 Pneumonia J18.9 Atrial fibrillation with rapid ventricular response I48.91 Metabolic encephalopathy G93.41 Thrombocytosis D75.839 Type 2 diabetes mellitus E11.42 Diabetes mellitus terminal makeup operator insulin use: without terminal makeup operator use Diabetes mellitus complication status: with neurologic complications Diabetes mellitus complication detail: with polyneuropathy DVT (deep venous thrombosis) I82.509 DVT location: lower extremity Affected thrombotic vein of extremity: unspecified vein of extremity Chronicity: chronic Laterality: unspecified laterality ILD (interstitial lung disease) J84.9 Physical deconditioning R53.81 Acute kidney injury N17.9
[2022-12-29 10:37] LABS: SARS Covid-2 Antigen negative (Negative)
--- NOTE | 2022-12-29 11:31 | PC.SOCIAL ---
IMM Update: IMM Update. Page 2 of IMM updated/reviewed with pt at 6847. Copy provided and placed in pt file.
[2022-12-29 12:00] VITALS: BP 116/80; PULSE 110; RESP 17; TEMP 36.5; O2SAT 92
== END 2022-12-29 14:11 | disposition skilled nursing facility (03) | DRG 698 ==
LOC: ER 16:41 → ICU 19:03 → MEDSURG 12-28 14:40
PROVIDERS: Admitting Provider Student in an Organized Health Care Education/Training Program; Emergency Provider Family Medicine; PCP Family Medicine; Visit Provider Internal Medicine
DX: T83.511A Infection and inflammatory reaction due to indwelling urethral catheter, initial encounter (principal); A41.9 Sepsis, unspecified organism; J18.9 Pneumonia, unspecified organism; J96.22 Acute and chronic respiratory failure with hypercapnia; J96.21 Acute and chronic respiratory failure with hypoxia; G93.41 Metabolic encephalopathy; J84.9 Interstitial pulmonary disease, unspecified; N17.9 Acute kidney failure, unspecified; Z68.41 Body mass index [BMI] 40.0-44.9, adult; Z16.12 Extended spectrum beta lactamase (ESBL) resistance; Y73.8 Miscellaneous gastroenterology and urology devices associated with adverse incidents, not elsewhere classified; B96.20 Unspecified Escherichia coli [E. coli] as the cause of diseases classified elsewhere; Z86.718 Personal history of other venous thrombosis and embolism; M79.7 Fibromyalgia; M10.9 Gout, unspecified; E78.5 Hyperlipidemia, unspecified; I11.0 Hypertensive heart disease with heart failure; I50.9 Heart failure, unspecified; G47.33 Obstructive sleep apnea (adult) (pediatric); E11.42 Type 2 diabetes mellitus with diabetic polyneuropathy; I48.91 Unspecified atrial fibrillation; Z79.51 Long term (current) use of inhaled steroids; Z79.82 Long term (current) use of aspirin; Z79.84 Long term (current) use of oral hypoglycemic drugs; Z79.891 Long term (current) use of opiate analgesic; Z79.01 Long term (current) use of anticoagulants; D75.839 Thrombocytosis, unspecified; L40.50 Arthropathic psoriasis, unspecified; M81.0 Age-related osteoporosis without current pathological fracture; E66.01 Morbid (severe) obesity due to excess calories; Z99.81 Dependence on supplemental oxygen
CPT/HCPCS: 36415; 36416; 36600; 51702; 51798; 70450; 71045; 71250; 74176; 80051; 80053; 80061; 80069; 80306; 81001; 82140; 82330; 82436; 82570; 82607; 82746; 82805; 82962; 83036; 83540; 83550; 83605; 83690; 83735; 83880; 84100; 84133; 84145; 84300; 84443; 84484; 85025; 85999; 86403; 87040; 87077; 87086; 87186; 87426; 87449; 87486; 87581; 87633; 87635; 87641; 93005; 94664; 96365; 96367; 96372; 96375; 96376; 97110; 97161; 97167; 97530; 99285; C9113; J1815; J1956; J2185; J3370; J3475; J3490; J7030; J7040

== ENCOUNTER 2023-01-03 15:23 | Inpatient (IN) | payer MEDICARE, MEDICAID, SELFPAY ==
[2023-01-03] VITALS (26 sets, daily range): BP systolic 75–129; BP diastolic 46–96; PULSE 90–151; RESP 11–37; TEMP 36.8; O2SAT 91–100
--- NOTE | 2023-01-03 15:42 | XR_ITS ---
WS: [id number] EXAMINATION: XR chest 1V portable [id number] REASON FOR EXAM: tachycardia COMPARISON: 12/24/2022 ORDER DATE: 01/03/2023 3:45 PM TECHNIQUE: A single, portable frontal chest x-ray was obtained. X-RAY FINDINGS: There is an infiltrate present in the left lower lobe and lingula. Patchy infiltrate is also seen in the right lung base in the right upper lobe. Pleural spaces: No significant pleural effusion. Heart/Mediastinum: Stable cardiomegaly. Bones/joints: Stable bones. IMPRESSION: Multifocal pneumonia most conspicuous in the left lung base and right upper lobe.
--- NOTE | 2023-01-03 15:53 | ECG_ITS ---
[facility] Test Date: 2023-01-03 Pat Name: Nanci Sandoval Department: Room: Gender: Female Weight Caller: : [phone] Requested By: Calvin Jenkins Order Number: [id number] Yolis MD: Chichi Son M.D. Measurements Intervals Embudo Rate: 152 P: 0 MO: 0 QRS: 17 QRSD: 83 T: 0 QT: 158 QTc: 251 Interpretive Statements ATRIAL FIBRILLATION WITH RAPID VENTRICULAR RESPONSE LOW QRS VOLTAGE IN PRECORDIAL LEADS [QRS DEFLECTION < 1.0 mV IN CHEST LEADS] MINIMAL ST DEPRESSION [0.025+ mV ST DEPRESSION] CRITICAL TEST RESULT Compared to ECG 12/24/2022 20:04:43 ST (T wave) deviation now present Aberrant conduction of supraventricular beat(s) no longer present Ventricular premature complex(es) no longer present Myocardial infarct finding no longer present Electronically Signed On 01-03-2023 20:07:45 CDT by Chichi Son M.D. [id number]
[2023-01-03 16:02] LABS: Basophils # 0.1 10^3/uL (0.0-0.1); Basophils % 0.4 %; Eosinophils # 0.1 10^3/uL (0.0-0.8); Eosinophils % 0.5 %; Hematocrit 31.4 % (36-47); Lymphocytes # 5.2 10^3/uL (0.8-4.8); Lymphocytes % 26.4 %; Mean Corpuscular HGB Conc 29.9 g/dL (30-55); Mean Corpuscular Volume 106.8 fl (85-98); Mean Platelet Volume 11.6 fL (7.4-10.4); Monocytes # 1.1 10^3/uL (0.2-0.9); Monocytes % 5.6 %; Neutrophils # 12.92 10^3/uL (1.8-7.7); Neutrophils % 66.1 %; Nucleated Red Blood Cells % 0 %; Platelet Count 294 10^3/cmm (157-399); Red Blood Count 2.94 10^6/uL (3.85-5.65); White Blood Count 19.54 10^3/uL (3.29-11.43)
[2023-01-03] MEDS: dilTIAZem 5 mg/mL SDV 5 mL 20 MG IVP (16:08)
[2023-01-03] MEDS: sodium chloride 0.9% 1,000 ML 999 ML IV (16:10)
[2023-01-03 16:16] LABS: INR 1.46 (0.8-1.2)
--- NOTE | 2023-01-03 16:19 | W.ED.SYNCOPE ---
HPI - Syncope General: Chief Complaint: Syncope Stated Complaint: Syncope/ RVR Time Seen by Provider: 01/03/23 15:24 History of Present Illness: Patient presents to the ER by EMS with complaints of possible syncopal episode, vomiting up coffee-ground emesis, A-fib with RVR with a rate of about 150 bpm. She does have a history of A-fib and is on diltiazem and Eliquis. Review of Systems General: Reports: 10 or more systems reviewed and unremarkable except in HPI and below PFSH ED PFSH: Medical History Acute blood loss anemia Patient had only 1 bowel movement while in hospital. Refused any endoscopy for evaluation. Transfusion was allowed. She received 4 units. Acute GI bleeding Annular psoriasis Chronic anticoagulation Eliquis discontinued secondary to GI bleeding and severe anemia Chronic edema takes prn lasix Cystitis DVT (deep venous thrombosis) Environmental and seasonal allergies Fibromyalgia Gout High risk medication use Hypertension on diltiazem and losartan ILD (interstitial lung disease) 3L BNC continous Immunization counseling Morbid obesity due to excess calories Obstructive sleep apnea intermittent cpap use Osteoarthritis Osteoporosis Fosamax discontinued in case this is contributing to bleeding with GI tract irritation 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 Respiratory failure with hypoxia and hypercapnia Type 2 diabetes mellitus UTI (urinary tract infection) Surgical History H/O arthroscopy of knee right knee 12/2012 H/O: hysterectomy Hx of bilateral cataract extraction with prosthetic lens insertion Family History Other CAD (coronary artery disease) Cancer Chronic kidney disease (CKD) Diabetes Hypertension Rheumatoid arthritis Denies family history of Systemic lupus erythematosus (SLE) in adult Stroke Social History Smoking and tobacco status: never smoked Substance/Drug Use: never Marital status: / Physical Exam Const: COMMON NORMALS: no acute distress, average body habitus, patient oriented x3, no limitations, healthy appearing, alert and well nourished HENMT: COMMON NORMALS: normocephalic, atraumatic, hearing grossly normal bilaterally, external ears normal, Normal external nose present and moist oral mucous membranes HEAD & SCALP: normocephalic and atraumatic NOSE: Normal external nose present EXTERNAL EAR: Yes external ears normal Eye: COMMON NORMALS: Equal, round and reactive pupils present, EOMs intact bilaterally, conjunctivae normal and no scleral icterus CONJUNCTIVA: Yes conjunctivae normal PUPIL: Yes Equal, round and reactive pupils present Neck/C-Spine: COMMON NORMALS: full ROM, no lymphadenopathy, supple, no meningeal signs, no JVD and Thyroid normal THYROID: Thyroid normal Lymph: LYMPHATIC: no lymphadenopathy noted Chest: COMMONS NORMALS: normal inspection of the chest and normal palpation of entire chest wall Resp: COMMON NORMALS: normal respiratory effort, No retractions, No use of accessory muscles and clear to auscultation bilaterally AUSCULTATION: clear to auscultation bilaterally Cardio: COMMON NORMALS: no JVD, S1 normal heart sound present, S2 normal heart sound present, No gallops present (Cardio), No clicks present (Cardio), No murmurs present (Cardio) and No rub (Cardio); negative for regular rate (Rapid irregularly irregular rhythm) and negative for regular rhythm RATE: abnormal rate (Rapid irregularly irregular rhythm) RHYTHM: abnormal rhythm HEART SOUNDS: S1 normal heart sound present and S2 normal heart sound present GI: COMMON NORMALS: Normal to inspection, nondistended, normoactive bowel sounds present, Soft to palpation, non-tender, No hepatosplenomegaly present and no masses PALPATION: Yes Soft to palpation and Yes No hepatosplenomegaly present : COMMON NORMALS: Yes no CVA tenderness BLADDER/KIDNEY EXAM: Yes no CVA tenderness Back/Pelvis: COMMON NORMALS: no CVA tenderness Neuro: COMMON NORMALS: patient oriented x3 SENSORIUM/ORIENTATION: Yes alert MENINGEAL SIGNS: Yes no meningeal signs Course Vital Signs: Vital signs: Vital Signs Temperature 98.2 F 01/03/23 15:46 Pulse Rate 136 H 01/03/23 17:00 Respiratory Rate 17 01/03/23 17:00 Blood Pressure 100/65 01/03/23 17:00 Pulse Oximetry 93 01/03/23 17:00 Oxygen Delivery Me thod Nasal Cannula 01/03/23 15:46 Oxygen Flow Rate 5 01/03/23 15:46 MDM - Syncope Medical Decision Making Presents to the ER with complaints of A-fib with RVR, coffee-ground emesis, and a syncopal episode. Patient had a rate of about 150 beats a minute with A-fib with RVR type pattern. Patient was given 20 mg of Cardizem IV push which lowered her to about 120 and she was started on a Cardizem drip and titrated up per protocol. Chest x-ray was obtained which showed multifocal pneumonia a CBC was obtained which showed a white count of 19.54. Lactic acid is pending, magnesium is low 1.2 and patient was given [address] Vuong, seen the patient in the ED and will admit except admission to the ICU. Medical Records I reviewed the patient's medical records. Lab Data I reviewed the patient's lab results. 01/03/23 15:50 01/03/23 15:50 Laboratory Results WBC 19.54 10^3/uL (3.29-11.43) H 01/03/23 15:50 RBC 2.94 10^6/uL (3.85-5.65) L 01/03/23 15:50 Hgb 9.40 g/dL (11.27-16.99) L 01/03/23 15:50 Hct 31.4 % (36-47) L 01/03/23 15:50 MCV 106.8 fl (85-98) H 01/03/23 15:50 MCH 32.0 pg (27-33) 01/03/23 15:50 MCHC 29.9 g/dL (30-55) L 01/03/23 15:50 RDW 18.0 % (12.1-15.1) H 01/03/23 15:50 Plt Count 294 10^3/cmm (157-399) 01/03/23 15:50 MPV 11.6 fL (7.4-10.4) H 01/03/23 15:50 Neut % (Auto) 66.1 % 01/03/23 15:50 Lymph % (Auto) 26.4 % 01/03/23 15:50 Morrison % (Auto) 5.6 % 01/03/23 15:50 Eos % (Auto) 0.5 % 01/03/23 15:50 Baso % (Auto) 0.4 % 01/03/23 15:50 Neut # (Auto) 12.92 10^3/uL (1.8-7.7) H 01/03/23 15:50 Lymph # (Auto) 5.2 10^3/uL (0.8-4.8) H 01/03/23 15:50 Morrison # (Auto) 1.1 10^3/uL (0.2-0.9) H 01/03/23 15:50 Eos # (Auto) 0.1 10^3/uL (0.0-0.8) 01/03/23 15:50 Baso # (Auto) 0.1 10^3/uL (0.0-0.1) 01/03/23 15:50 Nucleated RBC % (auto) 0 % 01/03/23 15:50 Nucleated RBCs # 0.0 /100WBC 01/03/23 15:50 PT 18.30 SECONDS (12.1-14.9) H 01/03/23 15:50 INR 1.46 (0.8-1.2) H 01/03/23 15:50 Specimen Type Arterial 01/03/23 17:08 Sample Site Radial, left 01/03/23 17:08 ABG pH 7.41 (7.35-7.45) 01/03/23 17:08 ABG pCO2 56.1 mmHg (35-45) H 01/03/23 17:08 ABG pO2 86.6 mmHg (80.0-100.0) 01/03/23 17:08 ABG HCO3 35.1 mmol/L (22-26) H 01/03/23 17:08 ABG O2 Saturation 97.0 01/03/23 17:08 ABG Base Excess 9.2 mmol/L (-2.0-2.0) H 01/03/23 17:08 Real Test Pos 01/03/23 17:08 A-a O2 Gradient Not Reportable 01/03/23 17:08 Hematocrit 26.4 % (37-47) L 01/03/23 17:08 Hgb O2 Saturation 95.1 % (95-100) 01/03/23 17:08 Carboxyhemoglobin 1.6 %THgb (0.4-20.1) 01/03/23 17:08 Methemoglobin 0.3 % (0.4-1.5) L 01/03/23 17:08 Total Hemoglobin 8.6 g/dL (12-16) L 01/03/23 17:08 Sodium 141.0 mmol/L (131-143) 01/03/23 17:08 Potassium 3.9 mmol/L (3.5-5.0) 01/03/23 17:08 Glucose 152.0 mg/dL (70-115) H 01/03/23 17:08 Ionized Calcium 1.3 mmol/L (1.1-1.4) 01/03/23 17:08 O2 Delivery Device Nc 01/03/23 17:08 O2 Liters/Min 5.5 % 01/03/23 17:08 Editorial Specialist ID Cak 01/03/23 17:08 Sodium 139 mmol/L (136-145) 01/03/23 15:50 Potassium 4.8 mmol/L (3.5-5.1) 01/03/23 15:50 Chloride 96 mmol/L (98-107) L 01/03/23 15:50 Carbon Dioxide 33 mmol/L (22-29) H 01/03/23 15:50 Anion Gap 14.8 (5-19) 01/03/23 15:50 BUN 53 mg/dL (8-23) H 01/03/23 15:50 Creatinine 1.1 mg/dL (0.5-0.9) H 01/03/23 15:50 GFR Calculation Not Reportable 01/03/23 15:50 Glucose 169 mg/dL (65-115) H 01/03/23 15:50 Calculated Osmolality 306 mOsm/kg (285-295) H 01/03/23 15:50 Lactic Acid 1.8 mmol/L (0.5-2.2) 01/03/23 15:50 Calcium 9.7 mg/dL (8.5-10.5) 01/03/23 15:50 Magnesium 1.2 mg/dL (1.7-2.3) L 01/03/23 15:50 Total Bilirubin 0.3 mg/dL (0.15-1.2) 01/03/23 15:50 AST 18 U/L (0-32) 01/03/23 15:50 ALT 10 U/L (0-33) 01/03/23 15:50 Alkaline Phosphatase 66 U/L (35-105) 01/03/23 15:50 Troponin T Baseline 24 ng/L (0-10) H 01/03/23 15:50 NT-Pro-B Natriuret Pep 689 pg/mL (0-450) H 01/03/23 15:50 Total Protein 5.9 g/dL (6.6-8.7) L 01/03/23 15:50 Albumin 3.1 g/dL (3.5-5.2) L 01/03/23 15:50 Globulin 2.8 g/dL (1.3-4.6) 01/03/23 15:50 TSH 2.47 uIU/mL (0.27-4.20) 01/03/23 15:50 EKG Data EKG 1: I personally reviewed and interpreted this EKG as follows: EKG interpretation date: 01/03/23 EKG interpretation time: 15:53 Prior EKG tracings: not available for review Interpretation: EKG showed ventricular rate 152 beats minute, QRS duration 83, QTc of 244, atrial fibrillation with rapid ventricular response. EKG 2: I personally reviewed and interpreted this EKG as follows: EKG interpretation date: 01/03/23 EKG interpretation time: 18:02 Prior EKG tracings: available for review Interpretation: EKG ventricular rate 122 bpm, QRS duration 95, QTc of 369, A-fib with RVR, Discharge Plan Discharge Patient Disposition: Admitted As Inpatient Clinical Impression: Multifocal pneumonia, Atrial fibrillation with rapid ventricular response, Hypomagnesemia Leukocytosis Qualifiers: Leukocytosis type: unspecified Qualified Code(s): D72.829 - Elevated white blood cell count, unspecified Condition: Stable Coding Level of Care Code ED Punch Box Tender for Gregg Sweet
[2023-01-03 16:29] LABS: Troponin(5th) Baseline 24 ng/L (0-10)
[2023-01-03] MEDS: dilTIAZem 100 MG in sodium chloride 0.9% (add-van) 100 ML IV (16:30)
[2023-01-03 16:40] LABS: Albumin Level 3.1 g/dL (3.5-5.2); Alkaline Phosphatase 66 U/L (35-105); Blood Urea Nitrogen 53 mg/dL (8-23); Calcium 9.7 mg/dL (8.5-10.5); Carbon Dioxide 33 mmol/L (22-29); Chloride 96 mmol/L (98-107); Globulin 2.8 g/dL (1.3-4.6); Glucose 169 mg/dL (65-115); Magnesium 1.2 mg/dL (1.7-2.3); NT Pro B Type Natriuretic Pept 689 pg/mL (0-450); Osmolality Calculated 306 mOsm/kg (285-295); Sodium 139 mmol/L (136-145); Thyroid Stimulating Hormone 2.47 uIU/mL (0.27-4.20); Total Bilirubin 0.3 mg/dL (0.15-1.2); Total Protein 5.9 g/dL (6.6-8.7)
[2023-01-03 16:42] LABS: Alanine Aminotransferase 10 U/L (0-33); Anion Gap 14.8 (5-19); Aspartate Amino Transferase 18 U/L (0-32); Potassium 4.8 mmol/L (3.5-5.1)
[2023-01-03 17:19] LABS: ABG PCO2 56.1 mmHg (35-45); ABG PH Result 7.41 (7.35-7.45); Arterial Blood Gas Hematocrit 26.4 % (37-47); Base Excess ABG 9.2 mmol/L (-2.0-2.0); Blood Gas Allen Test Pos; Blood Gas LPM 5.5 %; Blood Gas Operator Identificat CAK; Blood Gas Sample Site Radial, left; Blood Gas Sample Type Arterial; Carboxyhemoglobin 1.6 %THgb (0.4-20.1); HCO3 ABG 35.1 mmol/L (22-26); HGB O2 Sat 95.1 % (95-100); Ionized Calcium Level - ABG 1.3 mmol/L (1.1-1.4); Methemoglobin 0.3 % (0.4-1.5); Oxygen Device NC; PO2 ABG 86.6 mmHg (80.0-100.0); Potassium Level - ABG 3.9 mmol/L (3.5-5.0); Total Hemoglobin 8.6 g/dL (12-16)
[2023-01-03 17:36] LABS: Lactic Sepsis W/Reflex 1.8 mmol/L (0.5-2.2)
--- NOTE | 2023-01-03 17:43 | ECG_ITS ---
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 Measurements Intervals [place] Rate: 122 P: 0 VT: 0 QRS: 12 QRSD: 85 T: -11 QT: 297 QTc: 423 Interpretive Statements ATRIAL FIBRILLATION WITH RAPID VENTRICULAR RESPONSE LOW QRS VOLTAGE IN PRECORDIAL LEADS [QRS DEFLECTION < 1.0 mV IN CHEST LEADS] MINIMAL ST DEPRESSION [0.025+ mV ST DEPRESSION] ABNORMAL RHYTHM ECG Compared to ECG 01/03/2023 15:53:24 No significant changes Electronically Signed On 01-03-2023 20:55:24 CDT by Chichi Son M.D. [email or web address]
--- NOTE | 2023-01-03 17:59 | CTR_ITS ---
PROCEDURE INFORMATION: Exam: CT Chest With Contrast; Diagnostic Exam date and time: 01/03/2023 6:37 PM Age: 77 years old Clinical indication: Vomiting; Other: Syncope; Additional info: Syncope, anemia, black tarry vomit TECHNIQUE: Imaging protocol: Diagnostic computed tomography of the chest with contrast. Radiation optimization: All CT scans at this facility use at least one of these dose optimization techniques: automated exposure control; mA and/or kV adjustment per patient size (includes targeted exams where dose is matched to clinical indication); or iterative reconstruction. Contrast material: OMNI 350; Contrast volume: 100 ml; Contrast route: INTRAVENOUS (IV); REPORTING DATA: Count of CT and Cardiac NM exams in prior 12 months: This patient has received 2 known CTs and 0 known cardiac nuclear medicine studies in the 12 months prior to the current study. COMPARISON: [place] [id number] 12/24/2022 6:18 PM RADIATION DOSE METRICS: Total DLP (mGy-cm): 1734.79 FINDINGS: Thyroid: Right thyroid cyst, Hounsfield units less than 20. No follow-up imaging recommended. Lungs: Patchy ground-glass opacities with intermixed interlobular septal thickening in both lungs. Mosaic attenuation in both lungs, consistent with regions of air trapping. Pleural spaces: Unremarkable. No pneumothorax. No pleural effusion. Heart: Mitral annulus calcifications. The heart size is normal. Lymph nodes: Prominent mediastinal and hilar lymph nodes are most likely reactive. Vasculature: Unremarkable. No aortic aneurysm. Stomach and bowel: Hiatal/gastric hernia. Bones/joints: Mild degenerative changes of the spine. Thoracic curvature. No acute fracture. Soft tissues: Unremarkable. COMMENTS: Consistent with the [place] [employer]'s Incidental Findings Committee white paper (J Am Miki Radiol 2015): In patients aged 35 years and older with an incidental thyroid nodule equal to or greater than 1.[address], MRI or extrathyroidal US, further evaluation with dedicated thyroid US is recommended for patients with normal life expectancy and without comorbidities. For smaller nodules without suspicious features, no further evaluation or follow up is recommended. PROCEDURE INFORMATION: Exam: CT Abdomen And Pelvis With Contrast Exam date and time: 01/03/2023 6:37 PM Age: 77 years old Clinical indication: Vomiting; Other: Syncope; Additional info: Syncope, anemia, black tarry vomit TECHNIQUE: Imaging protocol: Computed tomography of the abdomen and pelvis with contrast. Radiation optimization: All CT scans at this facility use at least one of these dose optimization techniques: automated exposure control; mA and/or kV adjustment per patient size (includes targeted exams where dose is matched to clinical indication); or iterative reconstruction. Contrast material: OMNI 350; Contrast volume: 100 ml; Contrast route: INTRAVENOUS (IV); REPORTING DATA: Count of CT and Cardiac NM exams in prior 12 months: This patient has received 2 known CTs and 0 known cardiac nuclear medicine studies in the 12 months prior to the current study. COMPARISON: [place] [id number] 12/24/2022 6:18 PM RADIATION DOSE METRICS: Total DLP (mGy-cm): 1734.79 FINDINGS: Liver: Normal. No mass. Gallbladder and bile ducts: Cholecystectomy. The bile ducts are normal. Pancreas: Normal. No ductal dilation. Spleen: Normal. No splenomegaly. Adrenal glands: Normal. No mass. Kidneys and ureters: Stable 5 mm calculus in the distal right ureter with trace right hydronephrosis. Stomach and bowel: Duodenal diverticulum. Mild diverticulosis of the colon. No diverticulitis. The stomach and small bowel are unremarkable. No obstruction. Appendix: The appendix is not visualized. No secondary signs of appendicitis. Intraperitoneal space: Unremarkable. No free air. No significant fluid collection. Vasculature: Mild arterial calcifications. No aneurysm. Lymph nodes: Unremarkable. No enlarged lymph nodes. Urinary bladder: Unremarkable as visualized. Reproductive: The uterus and ovaries are absent. Bones/joints: Mild degenerative changes of the spine. No fracture. Soft tissues: Atrophic right psoas and iliacus muscle. CT/CT chest abdpel w/*[id number] IMPRESSION: 1. Increased ground-glass and interstitial opacities in both lungs most likely represents multilobar pneumonia with scarring. IMPRESSION: 1. Stable 5 mm calculus in the distal right ureter with trace hydronephrosis.
[2023-01-03] MEDS: piperacillin-tazobactam 3.375 GM in sodium chloride 0.9% (plus) 50 ML IV (18:03)
[2023-01-03] MEDS: magnesium sulfate premix 2 GM/50 ML PIGGYBACK IV ×2 (18:05→23:39)
--- NOTE | 2023-01-03 18:07 | PC.NURSE ---
bryanna pharmacist raghu stated mag sulfate and cardizem can be ran in through the save iv at y site.
[2023-01-03 18:39] LABS: Troponin 5 2HR 25.01 ng/L (0-10)
[2023-01-03 18:41] LABS: Ferritin 61 ng/mL (15-150)
[2023-01-03 18:43] LABS: Troponin 5 2HR Delta 1.01 ABS# (0-10)
--- NOTE | 2023-01-03 18:44 | PM.HP ---
Providers/Chief Complaint Admitting Physician: Garth Vunog MD Primary Care Provider: Stefany Jaime MD Chief Complaint: Syncope/ RVR History of Present Illness Nanci Sandoval is a 77 year old female with a past medical history of atrial fibrillation on anticoagulation, history of sleep apnea, history of interstitial lung disease, history of type 2 diabetes mellitus, history of DVT on Eliquis, morbid obesity, history of GI bleeds on anticoagulation requiring transfusion, no significant etiology found, history of psoriatic arthritis, recent admission and hospital discharge for sepsis, respiratory failure, pneumonia, A-fib with RVR, ESBL E. coli UTI who presents to [facility] for [facility] skilled nursing due to unresponsive episode, black tarry vomit, confusion, shortness of breath. Currently patient is alert to person, to place, not to time, she can follow commands, she her only complaint is feeling fatigued and tired, she tells me she feels weak all over. In the emergency room she was found to have A-fib with RVR, started on Cardizem drip, found to have hypomagnesemia replace with magnesium, concern for pneumonia on chest x-ray, concern for possible GI bleed hemoglobin 9.1. She denies any bloody or black stools, family members at bedside tell me that oral they heard from any see skilled nursing was that she had an episode of becoming unresponsive so was sent to [facility] for evaluation. I have called [facility] over 10 times now, I have spent over 30 minutes on hold, waiting to speak to anybody to get more history however I have unfortunately not able to speak to any person Review of Systems Const: Reports: body aches, fatigue and malaise; Denies: fever(s) or chills Eyes: Denies: change in vision ENMT: Denies: throat pain Card: Denies: chest pain or palpitations Resp: Reports: dyspnea GI: Denies: abdominal pain, nausea or vomiting : Denies: flank pain or difficulty voiding Musc: Denies: neck pain or back pain Skin/Breast: Denies: rash Neuro: Denies: headache(s) Psych: Denies: anxiety Medications/Allergies Home Medications Medication Instructions Recorded Confirmed Last Taken Type blood sugar diagnostic #10 ea 05/13/19 01/03/23 Unknown History lancets #50 ea 05/13/19 01/03/23 Unknown History febuxostat 40 mg tablet (Uloric) 40 mg PO DAILY #30 tabs 09/17/19 01/03/23 01/03/23 Rx ferrous sulfate 325 mg (65 mg 325 mg PO DAILY 11/12/19 01/03/23 12/24/22 History iron) tablet,delayed release cetirizine 10 mg capsule (All Day 10 mg PO DAILY #90 caps 11/13/19 01/03/23 01/03/23 Rx Allergy (cetirizine)) montelukast 10 mg tablet 10 mg PO DAILY #30 tabs 11/13/19 01/03/23 01/03/23 Rx potassium chloride 10 mEq 10 meq PO DAILY #30 tabs 03/18/20 01/03/23 01/03/23 Rx tablet,extended release venlafaxine 150 mg 150 mg PO DAILY #90 caps 03/18/20 01/03/23 01/03/23 Rx capsule,extended release 24 hr losartan 100 mg tablet 100 mg PO DAILY #90 tabs 04/26/20 01/03/23 01/03/23 Rx pantoprazole 40 mg tablet,delayed 40 mg PO BID #60 tabs 04/29/20 01/03/23 01/03/23 Rx release (Protonix) metformin 1,000 mg tablet 1,000 mg PO BID 30 days #60 tabs 06/02/20 01/03/23 01/03/23 Rx furosemide 80 mg tablet 40 mg PO BID 09/28/20 01/03/23 01/03/23 History allopurinol 100 mg tablet 100 mg PO DAILY 09/29/20 01/03/23 01/03/23 History aspirin 81 mg tablet,delayed 81 mg PO DAILY 09/29/20 01/03/23 01/03/23 History release (Adult Aspirin Regimen) metoprolol tartrate 25 mg tablet 25 mg PO BID 09/29/20 01/03/23 01/03/23 History ertapenem 1 gram solution for 1 g IM .Q7days 01/11/21 01/03/23 12/12/22 History injection (Invanz) acetaminophen 325 mg capsule 650 mg PO QID PRN Pain 12/24/22 01/03/23 12/23/22 History apixaban 5 mg tablet (Eliquis) 5 mg PO BID 12/24/22 01/03/23 01/03/23 History bisacodyl 10 mg rectal suppository 10 mg KS DAILY PRN Constipation 12/24/22 01/03/23 Unknown History (Dulcolax (bisacodyl)) budesonide-formoterol HFA 160 2 puff inhalation BID 12/24/22 01/03/23 01/03/23 History mcg-4.5 mcg/actuation aerosol inhaler calcium carbonate 600 mg-vitamin 1 tab PO DAILY 12/24/22 01/03/23 01/03/23 History D3 10 mcg (400 unit) tablet (Calcium 600 + D(3)) gabapentin 300 mg capsule 600 mg PO BID 12/24/22 01/03/23 01/03/23 History menthol 0.44 %-zinc oxide 20.6 % 1 applic topical QID PRN PREVENTION 12/24/22 01/03/23 01/03/23 History topical ointment (Calmoseptine) methotrexate 2.5 mg/mL oral 15 mg PO Q7D 12/24/22 01/03/23 12/31/22 History solution trazodone 50 mg tablet 50 mg PO QPM 12/24/22 01/03/23 01/02/23 History folic acid 1 mg tablet 1 mg PO DAILY 30 days #30 tabs 12/29/22 01/03/23 01/03/23 Rx diltiazem HCl 240 mg 240 mg PO DAILY 01/03/23 01/03/23 01/03/23 History capsule,extended release 24 hr levofloxacin 750 mg tablet 750 mg PO DAILY 01/03/23 01/03/23 01/03/23 History Allergies Allergy/AdvReac Type Severity Reaction Status Date / Time levomilnacipran Allergy hallucinati Verified 01/03/23 15:52 [From Fetzima] ons nitrofurantoin Allergy vomiting,abdominal Verified 01/03/23 15:52 pain,diarrhea pneumococcal 7-valent Allergy hives and Verified 01/03/23 15:52 conjugate to itching [From Prevnar] Sulfa (Sulfonamide Allergy confusion Verified 01/03/23 15:52 Antibiotics) PFSH Acute PFSH: Medical History (Updated 01/03/23 @ 18:54 by Garth Vuong MD) Acute blood loss anemia Patient had only 1 bowel movement while in hospital. Refused any endoscopy for evaluation. Transfusion was allowed. She received 4 units. Acute GI bleeding Annular psoriasis Chronic anticoagulation Eliquis discontinued secondary to GI bleeding and severe anemia Chronic edema takes prn lasix Cystitis DVT (deep venous thrombosis) Environmental and seasonal allergies Fibromyalgia Gout High risk medication use Hypertension on diltiazem and losartan ILD (interstitial lung disease) 3L BNC continous Immunization counseling Morbid obesity due to excess calories Obstructive sleep apnea intermittent cpap use Osteoarthritis Osteoporosis Fosamax discontinued in case this is contributing to bleeding with GI tract irritation 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 Respiratory failure with hypoxia and hypercapnia Type 2 diabetes mellitus UTI (urinary tract infection) Surgical History H/O arthroscopy of knee right knee 12/2012 H/O: hysterectomy Hx of bilateral cataract extraction with prosthetic lens insertion Family History Other CAD (coronary artery disease) Cancer Chronic kidney disease (CKD) Diabetes Hypertension Rheumatoid arthritis Denies family history of Systemic lupus erythematosus (SLE) in adult Stroke Social History Smoking and tobacco status: never smoked Substance/Drug Use: never Marital status: / Vitals/I&O/Wt Last Vital Signs Temp 98.2 F 01/03/23 15:46 Pulse 136 H 01/03/23 17:00 Resp 17 01/03/23 17:00 BP 100/65 01/03/23 17:00 Pulse Ox 93 01/03/23 17:00 O2 Del Method Nasal Cannula 01/03/23 15:46 O2 Flow Rate 5 01/03/23 15:46 01/03/23 01/03/23 01/03/23 06:59 14:59 22:59 Intake Total 8.083 / 8.083 Balance 8.083 / 8.083 Weight last 48 hrs Weight 119.295 kg Physical Exam Const: COMMON NORMALS: no acute distress GENERAL APPEARANCE: cooperative and well kempt HENMT: COMMON NORMALS: normocephalic and Normal external nose present HEAD & SCALP: normocephalic FACE & SINUS: normal facial exam NOSE: Normal external nose present Eye: COMMON NORMALS: Equal, round and reactive pupils present, EOMs intact bilaterally, conjunctivae normal and no scleral icterus CONJUNCTIVA: Yes conjunctivae normal PUPIL: Yes Equal, round and reactive pupils present Neck/C-Spine: COMMON NORMALS: full ROM, no lymphadenopathy, no JVD and No carotid bruits THYROID: Thyroid normal Lymph: LYMPHATIC: no lymphadenopathy noted Chest: COMMONS NORMALS: normal inspection of the chest Resp: COMMON NORMALS: normal respiratory effort, No retractions and No use of accessory muscles OTHER: Diffuse crackles and wheezes Cardio: COMMON NORMALS: no JVD, S1 normal heart sound present, S2 normal heart sound present, No murmurs present (Cardio) and Peripheral pulses 2+ throughout RATE: tachycardic RHYTHM: abnormal rhythm HEART SOUNDS: S1 normal heart sound present and S2 normal heart sound present PERIPHERAL PULSES: Peripheral pulses 2+ throughout GI: COMMON NORMALS: Normal to inspection, nondistended, normoactive bowel sounds present, Soft to palpation and non-tender : BLADDER/KIDNEY EXAM: Yes no CVA tenderness Back/Pelvis: COMMON NORMALS: no CVA tenderness Extremity: COMMON NORMALS: normal to inspection, full ROM, capillary refill normal, no calf tenderness and no pedal edema Neuro: OTHER: Alert to person, to place, not to time, she can follow commands such as squeezing my fingers, wiggling her toes, but becomes quite drowsy, does not follow other neurologic testing Skin: COMMON NORMALS: turgor normal and no jaundice GENERAL SKIN EXAM: turgor normal Data 01/03/23 15:50 01/03/23 15:50 Micro: Microbiology 01/03/23 17:55 Blood Culture - Preliminary Blood SPECIMEN COLLECTED 01/03/23 17:36 Blood Culture - Preliminary Blood SPECIMEN COLLECTED A&P Assessment and plan (1) Healthcare-associated pneumonia: (2) Atrial fibrillation with rapid ventricular response: (3) Hypomagnesemia: (4) Physical deconditioning: (5) Morbid obesity: (6) Chronic anticoagulation: (7) Acute GI bleeding: (8) Acute anemia: (9) Acute kidney injury: (10) Acute blood loss anemia: (11) NSTEMI (non-ST elevated myocardial infarction): (12) UTI due to extended-spectrum beta lactamase (ESBL) producing Escherichia coli: Plan A-fib with RVR -Continue Cardizem drip -Currently anticoagulation on hold due to concerns for slow GI bleed Healthcare associate pneumonia -Sputum cultures -Blood culture -Viral respiratory panel -MRSA nares PCR -Vancomycin -Meropenem -DuoNeb -Budesonide Recent history of ESBL UTI -Continue meropenem -Not sure if he was discharged on Invanz or Levaquin we will have to ask skilled nursing Concerns for GI bleed, anemia -From history so far sounds like upper GI bleed -Hold Eliquis -Monitor hemoglobin -Protonix, Carafate -Hemoccult stool -Iron, ferritin History of DVT -Eliquis on hold NSTEMI -Likely type II, related to A-fib with RVR, healthcare associate pneumonia Unresponsive episode -Etiology unclear JONNATHAN, IV fluids I have ordered a CT chest abdomen pelvis CODE STATUS, confirmed with patient and family at bedside that patient is DNR/DNI SCDs for DVT prophylaxis Attestations Medical Necessity Statement*: Patient requires hospitalization for unresponsive episode, GI bleed, anemia, healthcare associated pneumonia, A-fib with RVR, ESBL UTI, inpatient, greater than 2 midnights Diagnoses Healthcare-associated pneumonia J18.9 Atrial fibrillation with rapid ventricular response I48.91 Hypomagnesemia E83.42 Physical deconditioning R53.81 Morbid obesity E66.01 Chronic anticoagulation Z79.01 Acute GI bleeding K92.2 Acute anemia D64.9 Acute kidney injury N17.9 Acute blood loss anemia D62 NSTEMI (non-ST elevated myocardial infarction) I21.4 UTI due to extended-spectrum beta lactamase (ESBL) producing Escherichia coli N39.0; B96.29; Z16.12
[2023-01-03] MEDS: iohexol 350 mg/mL 500 mL Btl (per mL) IV (18:47)
[2023-01-03] MEDS: ipratropium-albuterol 3 mL Neb INHALATION ×2 (20:50→23:58)
[2023-01-03] MEDS: budesonide 0.5 mg/2 mL Neb INHALATION (20:50)
[2023-01-03] MEDS: pantoprazole 40 mg SDV IVP (21:00)
[2023-01-03] MEDS: meropenem 1,000 MG in sodium chloride 0.9% (plus) 50 ML 100 MG IV (21:01)
[2023-01-03] MEDS: sucralfate 1 gm Tablet PO (21:01)
[2023-01-03] MEDS: vancomycin 1,500 MG/300 ML PIGGYBACK 200 MG IV (21:01)
[2023-01-03 21:28] LABS: Hematocrit 28.9 % (36-47)
[2023-01-03 21:40] LABS: Add Urine Microscopic? NO; Charge for UA Resulting for Rev
[2023-01-03 21:44] LABS: Bilirubin Urine Neg (Negative); Blood Urine Neg (Negative); Glucose Urine UA Norm (Normal); Ketones Urine Negative (Negative); Leukocyte Esterase Urine Negative (Negative); Nitrate Urine Negative (Negative); Protein Urine Neg (Negative); Urine Appearance Clear (CLEAR); Urine Color Yellow (Yellow); Urobilinogen Urine Neg (Negative); pH Urine 5 (5-7)
[2023-01-03 21:46] LABS: Troponin 5 6HR 26.27 ng/L (0-10)
[2023-01-03 21:48] LABS: Troponin 5 6HR Delta 2.27 ng/L (0-12)
[2023-01-03] MEDS: dilTIAZem 100 MG in sodium chloride 0.9% (add-van) 100 ML 10 MG IV (22:06)
--- NOTE | 2023-01-03 22:41 | ECG_ITS ---
[facility] Test Date: 2023-01-03 Pat Name: Nanci Sandoval Department: Room: ICU12 Gender: Female Medical Information Officer: : 1945 Requested By: Calvin Jenkins Order Number: [id number] Yolis MD: Loco Mtz M.D. Measurements Intervals [place] Rate: 99 P: 0 OK: 0 QRS: -2 QRSD: 86 T: -29 QT: 361 QTc: 463 Interpretive Statements ATRIAL FIBRILLATION WITH ABERRANT CONDUCTION OR VENTRICULAR PREMATURE COMPLEXES LOW QRS VOLTAGE IN PRECORDIAL LEADS [QRS DEFLECTION < 1.0 mV IN CHEST LEADS] POSSIBLE ANTERIOR MYOCARDIAL INFARCTION , PROBABLY OLD [30 ms Q WAVE IN V3/V4, OR R < 0.2 mV IN V4] ABNORMAL RHYTHM ECG Compared to ECG 01/03/2023 18:02:25 Ventricular premature complex(es) now present Aberrant conduction of supraventricular beat(s) now present Myocardial infarct finding now present ST (T wave) deviation no longer present Electronically Signed On 01-04-2023 7:51:53 CDT by Loco Mtz M.D. [id number]
[2023-01-03] MEDS: digoxin 250 mcg/ml INJ 2 mL IVP (23:39)
[2023-01-04] VITALS (29 sets, daily range): BP systolic 92–145; BP diastolic 42–91; PULSE 83–144; RESP 14–41; TEMP 36.9–37.1; O2SAT 75–100
[2023-01-04 01:35] LABS: Hematocrit 24.1 % (36-47)
[2023-01-04] MEDS: ipratropium-albuterol 3 mL Neb INHALATION ×2 (04:03→08:33)
[2023-01-04] MEDS: meropenem 1,000 MG in sodium chloride 0.9% (plus) 50 ML 100 MG IV (06:10)
[2023-01-04] MEDS: venlafaxine ER (24HR) 150 mg Capsule PO (08:23)
[2023-01-04] MEDS: gabapentin 300 mg Capsule 600 MG PO ×2 (08:23→17:15)
[2023-01-04] MEDS: allopurinol 100 mg Tablet PO (08:23)
[2023-01-04] MEDS: sucralfate 1 gm Tablet PO ×2 (08:23→20:29)
[2023-01-04] MEDS: folic acid 1 mg Tablet PO ×2 (08:23→17:15)
[2023-01-04] MEDS: pantoprazole 40 mg SDV IVP ×2 (08:23→20:28)
[2023-01-04] MEDS: budesonide 0.5 mg/2 mL Neb INHALATION ×2 (08:33→21:02)
[2023-01-04 09:04] LABS: Basophils # 0.1 10^3/uL (0.0-0.1); Basophils % 0.5 %; Eosinophils # 0.2 10^3/uL (0.0-0.8); Eosinophils % 1.3 %; Hematocrit 25.6 % (36-47); Lymphocytes # 3.7 10^3/uL (0.8-4.8); Lymphocytes % 21.9 %; Mean Corpuscular HGB Conc 30.5 g/dL (30-55); Mean Corpuscular Hemoglobin 33.3 pg (27-33); Mean Corpuscular Volume 109.4 fl (85-98); Monocytes # 0.8 10^3/uL (0.2-0.9); Monocytes % 4.9 %; Neutrophils # 12.05 10^3/uL (1.8-7.7); Neutrophils % 70.5 %; Nucleated Red Blood Cells % 0 %; Platelet Count 212 10^3/cmm (157-399); Red Blood Count 2.34 10^6/uL (3.85-5.65)
[2023-01-04 09:17] LABS: Partial Thromboplastin Time 32.8 SECONDS (23.9-36.7)
[2023-01-04 09:31] LABS: Alanine Aminotransferase 8 U/L (0-33); Albumin Level 2.5 g/dL (3.5-5.2); Alkaline Phosphatase 52 U/L (35-105); Anion Gap 11.2 (5-19); Aspartate Amino Transferase 14 U/L (0-32); Blood Urea Nitrogen 42 mg/dL (8-23); Calcium 8.7 mg/dL (8.5-10.5); Carbon Dioxide 32 mmol/L (22-29); Chloride 101 mmol/L (98-107); Chol HDL Ratio 3.09 mg/dL (0.0-4.40); Cholesterol 105 mg/dL (0-200); Globulin 2.8 g/dL (1.3-4.6); Glucose 99 mg/dL (65-115); HDL Cholesterol 34 mg/dL (60-100); LDL Cholesterol Calculated 42 mg/dL (50-129); LDL HDL Ratio 1.24 RATIO (0.00-3.22); Magnesium 1.6 mg/dL (1.7-2.3); NT Pro B Type Natriuretic Pept 375 pg/mL (0-450); Osmolality Calculated 303 mOsm/kg (285-295); Phosphorus 3.3 mg/dL (2.5-4.5); Potassium 3.2 mmol/L (3.5-5.1); Sodium 141 mmol/L (136-145); Thyroid Stimulating Hormone 0.71 uIU/mL (0.27-4.20); Total Bilirubin 0.2 mg/dL (0.15-1.2); Total Protein 5.3 g/dL (6.6-8.7); Triglycerides 144 mg/dL (0-150)
[2023-01-04] MEDS: dilTIAZem 100 MG in sodium chloride 0.9% (add-van) 100 ML 10 MG IV (09:49)
[2023-01-04 09:54] LABS: Estmated Average Glucose 94; Hemoglobin A1C 4.9 % (4.0-6.0)
[2023-01-04] MEDS: FUROsemide 10 mg/mL SDV 4mL 40 MG IVP (12:16)
[2023-01-04] MEDS: metoprolol tartrate 25 mg Tablet PO ×2 (12:17→17:15)
[2023-01-04] MEDS: cyanocobalamin 1,000 mcg/mL SDV 1000 MCG IM (12:17)
[2023-01-04] MEDS: meropenem 1,000 MG in sodium chloride 0.9% (plus) 50 ML 50 MG IV ×2 (12:18→20:29)
[2023-01-04] MEDS: amiodarone 50 mg/mL SDV 3 mL 150 MG IVP (12:18)
[2023-01-04] MEDS: potassium chloride ER 20 mEq Tablet 80 MEQ PO (12:18)
[2023-01-04] MEDS: levalbuterol 0.63 mg/3 mL Neb INHALATION ×2 (13:20→21:02)
[2023-01-04] MEDS: ipratropium 0.5 mg/2.5 mL Neb INHALATION ×2 (13:20→21:03)
--- NOTE | 2023-01-04 18:44 | P.PN_ITS ---
Subjective Subjective: Hospital course, labs appreciated. Overnight patient received digoxin push for tachycardia. Currently on Cardizem at 15. Patient wakes up to verbal stimulus, able to have conversation. Seems to be at her baseline of AAO x2-3. During the day Cardizem was stopped and transitioned over to amiodarone drip after which heart rate was better controlled but still elevated. Patient's hemodynamics seems to be stable with mean artery pressure maintained over 65. Blood blood appreciated Fluorivitamin 17.1, hemoglobin of 7.8 slightly trending down from 8.7 on admission, macrocytosis, CMP showing mild hypokalemia down to 3.2, creatinine improving to 0.9 with BUN improving to 42. Vitals/I&O/Wt Last Vital Signs Temp 98.4 F 01/04/23 09:00 Pulse 116 H 01/04/23 16:00 Resp 17 01/04/23 16:00 BP 117/70 01/04/23 16:00 Pulse Ox 94 01/04/23 16:00 O2 Del Method Nasal Cannula 01/04/23 13:20 O2 Flow Rate 4 01/04/23 13:20 01/04/23 01/04/23 01/04/23 06:59 14:59 22:59 Intake Total 669 / 1897.083 67.167 / 67.167 Output Total 550 / 550 Balance 119 / 1347.083 67.167 / 67.167 Weight last 48 hrs Weight 119.295 kg Physical Exam Narrative: General: No acute distress, AO x 2-3, chronically sick appearing, morbidly obese HEENT: PERRLA, pupils bilaterally equal and reactive Chest: Bilateral bronchial breath sounds with occasional rhonchi over lung yin, coarse crackles present in bilateral lower zone right more than left CVS: S1-S2 irregularly irregular, tachycardia no gallops, no rubs Abdomen: Soft, nontender, no organomegaly, bowel sounds present Neuro: No focal deficits, no facial deformity, AO x3, power 5/5 in all limbs Urinary Catheter Management: [place]: Cath Placed During This Visit: yes Reason for Continuing Indwelling Catheter: Accurate Measurement of Urinary Outpu t in Critically Ill Patients Urinary Catheter Date of Insertion: 01/03/23 Urinary Catheter Time of Insertion: 21:35 Data 01/04/23 08:55 01/04/23 08:55 Micro: Microbiology 01/03/23 17:55 Blood Culture - Preliminary Blood NEGATIVE TO DATE 01/03/23 17:36 Blood Culture - Preliminary Blood NEGATIVE TO DATE 01/03/23 21:32 MRSA Culture - Final Nose 01/03/23 21:32 Bacterial Antigens - Final Urine Kidney A&P Assessment and plan (1) Healthcare-associated pneumonia: (2) Atrial fibrillation with rapid ventricular response: (3) Acute anemia: (4) Hypomagnesemia: (5) Physical deconditioning: (6) Morbid obesity: (7) Chronic anticoagulation: (8) Acute GI bleeding: (9) Acute kidney injury: (10) Acute blood loss anemia: (11) UTI due to extended-spectrum beta lactamase (ESBL) producing Escherichia coli: Plan A-fib with RVR: Difficult to control. Switch to amiodarone drip. Blood pressure stable. Restart home dose of metoprolol. Start Cardizem 60 mg every 6 hourly. Will uptitrate as per blood pressures and heart rate. -Currently anticoagulation on hold due to concerns for slow GI bleed Hypoxia in setting of Healthcare associate pneumonia: Check sputum culture, procalcitonin, respiratory viral panel. Continue with vancomycin and meropenem started yesterday. Switch to Xopenex Ipratropium every 6 hours, Pulmicort twice daily. -Supplementation given saturation over 90%. Patient most likely has component of diastolic congestive heart failure. Check echocardiogram. IV Lasix 40 mg one-time. Strict input per charting, daily weights. Redose Lasix as per fluid status every 24 hours. Recent history of ESBL UTI -Continue meropenem Acute anemia: Concerns for GI bleed, blood loss anemia From history so far sounds like upper GI bleed Continue to hold anticoagulation. Stool for occult blood. Once more hemodynamically stable will consult surgery for endoscopy. For now continue with Protonix twice daily, Carafate before meals and at bedtime. Monitor hemoglobin 12 hourly. Target hemoglobin more than 8. If needed will transfuse PRBC. History of DVT -Eliquis on hold NSTEMI -Likely type II, related to A-fib with RVR, healthcare associate pneumonia Unresponsive episode Most likely vasovagal in setting of vomiting, cannot rule out cardiogenic in setting of RVR and hypotension JONNATHAN: Most likely in setting of GI bleed and hypotension. Resolved. CODE STATUS, confirmed with patient and family at bedside that patient is DNR/DNI SCDs for DVT prophylaxis Protonix will suffice as PUD prophylaxis Continue with cardiac diet for now. Attestations Medical Necessity Statement*: Requires further hospitalization for management of A-fib with RVR, hypoxia in setting of healthcare associated pneumonia, acute blood loss anemia secondary to hematemesis Coding Level of Care Code Critical Care >/= 30 minutes Critical care time (in minutes): 60 The high probability of a clinically significant, sudden or life threatening deterioration, as referenced in this documentation, required my full and direct attention, intervention and personal management. The critical care time shown is in addition to time spent performing any reported separately billable procedures and includes the following: [x] Data and vital sign review and interpretation [x ] Patient assessment, examination and intervention [x] Medication orders and management [x] Patient/Family updates as able [x] Care Coordination and Documentation. Other Coding Information This patient has a high probability of clinically significant, sudden or life threatening deterioration of the patient's (neurological/pulmonary/cardiac/renal/ID/endocrine) systems required my full, direct attention, the highest level of physician preparedness for urgent intervention and personal management. I managed/supervised life or organ supporting interventions that required frequent physician assessment. I devoted my full attention in the ICU to the direct care of this patient for the period of time indicated above. Time I spent with family or surrogate(s) is included only if the patient was incapable of providing necessary information or particip ating in decision making. This time includes the following services provided: Telemetry review Hemodynamic interpretation, assessment and management Review and interpretation of CXR Review and interpretation of lab values Review and interpretation of microbiologic data and culture results Review of medications and administration Review and interpretation of Nutrition requirements and management Discussion of management with other consultants and services Clinical update to family members Diagnoses Healthcare-associated pneumonia J18.9 Atrial fibrillation with rapid ventricular response I48.91 Acute anemia D64.9 Hypomagnesemia E83.42 Physical deconditioning R53.81 Morbid obesity E66.01 Chronic anticoagulation Z79.01 Acute GI bleeding K92.2 Acute kidney injury N17.9 Acute blood loss anemia D62 UTI due to extended-spectrum beta lactamase (ESBL) producing Escherichia coli N39.0; B96.29; Z16.12
[2023-01-04] MEDS: trazodone 50 mg Tablet PO (20:28)
[2023-01-04] MEDS: dilTIAZem 60 mg Tablet PO (20:28)
[2023-01-05] VITALS (37 sets, daily range): BP systolic 91–126; BP diastolic 45–86; PULSE 71–103; RESP 14–33; TEMP 36.8–37.1; O2SAT 88–100
[2023-01-05] MEDS: levalbuterol 0.63 mg/3 mL Neb INHALATION ×4 (01:47→19:36)
[2023-01-05] MEDS: ipratropium 0.5 mg/2.5 mL Neb INHALATION ×4 (01:47→19:36)
[2023-01-05] MEDS: dilTIAZem 60 mg Tablet PO ×4 (04:33→20:07)
[2023-01-05] MEDS: meropenem 1,000 MG in sodium chloride 0.9% (plus) 50 ML 50 MG IV ×3 (04:33→20:07)
[2023-01-05 05:52] LABS: Basophils # 0.1 10^3/uL (0.0-0.1); Basophils % 0.6 %; Eosinophils # 0.4 10^3/uL (0.0-0.8); Eosinophils % 2.9 %; Lymphocytes # 2.6 10^3/uL (0.8-4.8); Lymphocytes % 19.2 %; Mean Corpuscular HGB Conc 31.3 g/dL (30-55); Mean Corpuscular Hemoglobin 33.5 pg (27-33); Mean Platelet Volume 11.3 fL (7.4-10.4); Monocytes # 0.7 10^3/uL (0.2-0.9); Monocytes % 5.4 %; Neutrophils # 9.68 10^3/uL (1.8-7.7); Neutrophils % 71.3 %; Nucleated Red Blood Cells % 0 %; Platelet Count 206 10^3/cmm (157-399); Red Blood Count 2.15 10^6/uL (3.85-5.65); Red Cell Distribution Width 18.1 % (12.1-15.1); White Blood Count 13.56 10^3/uL (3.29-11.43)
[2023-01-05 06:09] LABS: Alanine Aminotransferase 10 U/L (0-33); Albumin Level 2.5 g/dL (3.5-5.2); Alkaline Phosphatase 57 U/L (35-105); Aspartate Amino Transferase 22 U/L (0-32); Blood Urea Nitrogen 35 mg/dL (8-23); Calcium 8.6 mg/dL (8.5-10.5); Carbon Dioxide 34 mmol/L (22-29); Chloride 103 mmol/L (98-107); Globulin 2.8 g/dL (1.3-4.6); Glucose 92 mg/dL (65-115); Magnesium 1.4 mg/dL (1.7-2.3); Osmolality Calculated 302 mOsm/kg (285-295); Phosphorus 2.8 mg/dL (2.5-4.5); Sodium 142 mmol/L (136-145); Total Bilirubin 0.2 mg/dL (0.15-1.2); Total Protein 5.3 g/dL (6.6-8.7)
[2023-01-05 06:11] LABS: Anion Gap 9.5 (5-19); Potassium 4.5 mmol/L (3.5-5.1)
[2023-01-05] MEDS: budesonide 0.5 mg/2 mL Neb INHALATION ×2 (07:45→19:36)
[2023-01-05] MEDS: venlafaxine ER (24HR) 150 mg Capsule PO (08:28)
[2023-01-05] MEDS: pantoprazole 40 mg SDV IVP ×2 (08:28→20:07)
[2023-01-05] MEDS: metoprolol tartrate 25 mg Tablet PO ×2 (08:29→17:08)
[2023-01-05] MEDS: cyanocobalamin 1,000 mcg Tablet 500 MCG PO (08:29)
[2023-01-05] MEDS: sucralfate 1 gm Tablet PO ×2 (08:29→20:07)
[2023-01-05] MEDS: folic acid 1 mg Tablet PO ×2 (08:29→17:09)
[2023-01-05] MEDS: allopurinol 100 mg Tablet PO (08:30)
[2023-01-05] MEDS: gabapentin 300 mg Capsule 600 MG PO ×2 (08:42→17:08)
--- NOTE | 2023-01-05 11:26 | P.PN_ITS ---
Subjective Subjective: Patient states I do not understand why this is happening to me . Reports that she has had this problem multiple times in the past. She says that she is feeling a little bit better this morning. She denies any chest pain, but does complain of some dyspnea. She denies other concerns at this time. Medications: Reviewed: Yes Vitals/I&O/Wt Last Vital Signs Temp 98.4 F 01/04/23 09:00 Pulse 95 01/05/23 08:00 Resp 25 H 01/05/23 08:00 BP 118/60 01/05/23 08:00 Pulse Ox 95 01/05/23 08:00 O2 Del Method High Flow Nasal Cannula 01/05/23 07:45 O2 Flow Rate 6 01/05/23 07:45 01/04/23 01/05/23 01/05/23 22:59 06:59 14:59 Intake Total 633.722 / 712.722 514.929 / 1227.651 250 / 250 Output Total 4550 / 4550 300 / 4850 Balance -3916.278 / -3837.278 214.929 / -3622.349 250 / 250 Weight last 48 hrs Weight 263 lb Physical Exam Narrative: General: Cooperative patient in no apparent distress. Well developed. HEENT: Normocephalic, Atraumatic. External ears normal. Nasal passages patent without drainage. MMM. Heart: RRR. Resp: No respiratory distress, no use of accessory muscles. 6 L nasal cannula. Lungs with scattered rails. Abd: Soft, non-tender. Non-distended. Extremities: 1+ lower extremity edema. Skin: No rash or lesions on exposed areas. Neuro: No focal motor or sensory loss. Gait is normal. Urinary Catheter Management: [place]: Cath Placed During This Visit: yes Reason for Continuing Indwelling Catheter: Accurate Measurement of Urinary Output in Critically Ill Patients Urinary Catheter Date of Insertion: 01/03/23 Urinary Catheter Time of Insertion: 21:35 Data 01/05/23 05:44 01/05/23 05:44 Micro: Microbiology 01/03/23 21:32 Urine Culture - Preliminary Urine Catheterized 01/03/23 17:55 Blood Culture - Preliminary Blood NEGATIVE TO DATE 01/03/23 17:36 Blood Culture - Preliminary Blood NEGATIVE TO DATE 01/03/23 21:32 MRSA Culture - Final Nose 01/03/23 21:32 Bacterial Antigens - Final Urine Kidney A&P Assessment and plan (1) Healthcare-associated pneumonia: (2) Atrial fibrillation with rapid ventricular response: (3) Acute anemia: (4) Hypomagnesemia: (5) Physical deconditioning: (6) Morbid obesity: (7) Chronic anticoagulation: (8) Acute GI bleeding: (9) Acute kidney injury: (10) Acute blood loss anemia: (11) UTI due to extended-spectrum beta lactamase (ESBL) producing Escherichia coli: Plan 77-year-old female admitted for A-fib with RVR, blood loss anemia. Continue close ICU monitoring. Heart rate is better controlled today, and stable. She has been on amiodarone drip. Will titrate off amiodarone and continue diltiazem and metoprolol. Blood pressures remained stable. We will continue to hold anticoagulation for now due to concern for GI bleed. Continue vancomycin and meropenem for concern of healthcare associated pneumonia and UTI with h/o ESBL. Cultures are pending and currently negative. RAAT, O2 protocol. Continue Duonebs q6h. she is currently on 6 L of oxygen high flow. Consider repeat CXR and echocardiogram to evaluate heart function. Strict I's and O's. Check stool for occult blood. Continue Carafate and twice daily Protonix. Magnesium at 1.4 today. Will replace and recheck tomorrow. Procalcitonin was 0.10. WBC count has decreased to 13.6. Recheck a.m. labs. Will try to have her evaluated with endoscopy when she is stable. Code Status: DNR/DNI IVF: None DVT PPx: SCDs GI PPx: Protonix ABx: Meropenem Diet: Cardiac Discharge plan: TBD. Attestations Medical Necessity Statement*: Will need continued ICU monitoring for IV antibiotics, blood transfusion, electrolyte replacement and recheck, and to monitor her anemia. Coding Level of Care Code Critical Care >/= 30 minutes Critical care time (in minutes): 35 The high probability of a clinically significant, sudden or life threatening deterioration, as referenced in this documentation, required my full and direct attention, intervention and personal management. The critical care time shown is in addition to time spent performing any reported separately billable procedures and includes the following: [x] Data and vital sign review and interpretation [x ] Patient assessment, examination and intervention [x] Medication orders and management [x] Patient/Family updates as able [x] Care Coordination and Docum entation. Diagnoses Healthcare-associated pneumonia J18.9 Atrial fibrillation with rapid ventricular response I48.91 Acute anemia D64.9 Hypomagnesemia E83.42 Physical deconditioning R53.81 Morbid obesity E66.01 Chronic anticoagulation Z79.01 Acute GI bleeding K92.2 Acute kidney injury N17.9 Acute blood loss anemia D62 UTI due to extended-spectrum beta lactamase (ESBL) producing Escherichia coli N39.0; B96.29; Z16.12
[2023-01-05] MEDS: magnesium sulfate premix 2 GM/50 ML PIGGYBACK IV (11:40)
[2023-01-05] MEDS: vancomycin 1,500 MG/300 ML PIGGYBACK 200 MG IV (16:15)
[2023-01-05] MEDS: trazodone 50 mg Tablet PO (17:09)
[2023-01-05] MEDS: FUROsemide 10 mg/mL SDV 2mL 20 MG IVP (20:07)
[2023-01-05 23:04] LABS: Adenovirus Not Detected (NOT DETECT); Chlamydia Pneumoniae Not Detected (NOT DETECT); Coronavirus 229E,HKU1,NL63,OC4 Not Detected (NOT DETECT); Human Metapneumovirus Not Detected (NOT DETECT); Human Rhinovirus/Enterovirus Not Detected (NOT DETECT); Influenza A Not Detected (NOT DETECT); Influenza A H1 Not Detected (NOT DETECT); Influenza A H1-2009 Not Detected (NOT DETECT); Influenza A H3 Not Detected (NOT DETECT); Influenza B Not Detected (NOT DETECT); Mycoplasma Pneumoniae Not Detected (NOT DETECT); Parainfluenza Virus Type 1 Not Detected (NOT DETECT); Parainfluenza Virus Type 2 Not Detected (NOT DETECT); Parainfluenza Virus Type 3 Not Detected (NOT DETECT); Parainfluenza Virus Type 4 Not Detected (NOT DETECT); Respiratory Syncytial Virus A Not Detected (NOT DETECT); Respiratory Syncytial Virus B Not Detected (NOT DETECT); SARS-COV-2 Not Detected (NOT DETECT)
[2023-01-06] VITALS (22 sets, daily range): BP systolic 72–133; BP diastolic 46–93; PULSE 80–125; RESP 17–39; TEMP 36.8–37; O2SAT 83–99
[2023-01-06] MEDS: acetaminophen 325 mg Tablet 650 MG PO (00:37)
[2023-01-06] MEDS: levalbuterol 0.63 mg/3 mL Neb INHALATION (01:25)
[2023-01-06] MEDS: ipratropium 0.5 mg/2.5 mL Neb INHALATION (01:25)
[2023-01-06] MEDS: dilTIAZem 60 mg Tablet PO (01:57)
--- NOTE | 2023-01-06 02:19 | XRR_ITS ---
PROCEDURE INFORMATION: Exam: XR Chest Exam date and time: 01/06/2023 2:29 AM Age: 77 years old Clinical indication: Shortness of breath; Patient HX: Worsening SOB; Additional info: Increased o2 demand TECHNIQUE: Imaging protocol: Radiologic exam of the chest. Views: 1 view. COMPARISON: CT chest abdpel w/*[id number] 01/03/2023 6:37 PM FINDINGS: Lungs: There are patchy increased interstitial markings noted in the right upper lobe and at the left lung base. Right lower lobe atelectasis is suspected. Pleural spaces: Unremarkable. No pleural effusion. No pneumothorax. Heart/Mediastinum: Right hilar prominence may be due to lymphadenopathy. Bones/joints: Unremarkable. XR/XR chest 1V portable [id number] IMPRESSION: Patchy interstitial prominence lower lobe atelectasis. Right hilar prominence. Please correlate with recently performed CT of the thorax.
[2023-01-06] MEDS: FUROsemide 10 mg/mL SDV 2mL 20 MG IVP (02:25)
--- NOTE | 2023-01-06 02:30 | PC.NURSE ---
Notified Dr. Vuong of patients increased O2 demands and current patient vital signs. Orders given to obtain cxray, BNP, and give 20mg lasix.
--- NOTE | 2023-01-06 02:34 | PC.NURSE ---
RT notified of patient changes and Dr. Vuong wants her to be assessed per RT. Placed on Non-Re Breather.
[2023-01-06 02:40] LABS: Basophils # 0.1 10^3/uL (0.0-0.1); Basophils % 0.4 %; Eosinophils # 0.4 10^3/uL (0.0-0.8); Hematocrit 28.6 % (36-47); Lymphocytes # 2.8 10^3/uL (0.8-4.8); Lymphocytes % 20.3 %; Mean Corpuscular HGB Conc 30.4 g/dL (30-55); Mean Corpuscular Hemoglobin 31.6 pg (27-33); Mean Platelet Volume 10.8 fL (7.4-10.4); Monocytes # 0.8 10^3/uL (0.2-0.9); Monocytes % 5.6 %; Neutrophils # 9.55 10^3/uL (1.8-7.7); Neutrophils % 69.7 %; Nucleated Red Blood Cells % 0.2 %; Platelet Count 205 10^3/cmm (157-399); Red Blood Count 2.75 10^6/uL (3.85-5.65); Red Cell Distribution Width 21.5 % (12.1-15.1)
[2023-01-06 02:59] LABS: Alanine Aminotransferase 10 U/L (0-33); Albumin Level 2.6 g/dL (3.5-5.2); Alkaline Phosphatase 62 U/L (35-105); Anion Gap 7.7 (5-19); Aspartate Amino Transferase 18 U/L (0-32); Blood Urea Nitrogen 27 mg/dL (8-23); Calcium 8.7 mg/dL (8.5-10.5); Carbon Dioxide 36 mmol/L (22-29); Chloride 96 mmol/L (98-107); Globulin 2.9 g/dL (1.3-4.6); Glucose 113 mg/dL (65-115); Magnesium 1.5 mg/dL (1.7-2.3); Osmolality Calculated 288 mOsm/kg (285-295); Phosphorus 2.2 mg/dL (2.5-4.5); Potassium 3.7 mmol/L (3.5-5.1); Sodium 136 mmol/L (136-145); Total Bilirubin 0.2 mg/dL (0.15-1.2); Total Protein 5.5 g/dL (6.6-8.7)
[2023-01-06 03:10] LABS: NT Pro B Type Natriuretic Pept 3344 pg/mL (0-450)
[2023-01-06] MEDS: meropenem 1,000 MG in sodium chloride 0.9% (plus) 50 ML 200 MG IV (03:39)
--- NOTE | 2023-01-06 05:27 | PC.NURSE ---
Notified Dr. Vuong that patient had a 9 beat run of v-tach and then a 8 beat run of v-tach. Notified of Mg level of 1.5, potassium level of 3.7, BNP of 3344, patient currently on non-breather with O2 sats improved to 95-98%, and blood pressure 88/52. No new orders given.
[2023-01-06 08:39] LABS: Vancomycin Trough 14.5 ug/mL (10-15)
--- NOTE | 2023-01-06 08:57 | PC.SOCIAL ---
Pg 2 IMM Explained to pt & family Pg 2 IMM. No questions voiced. Provided pt a copy. Initialed, dated, & timed a copy & placed in chart.
[2023-01-06] MEDS: cyanocobalamin 1,000 mcg Tablet 500 MCG PO (09:10)
[2023-01-06] MEDS: folic acid 1 mg Tablet PO (09:11)
[2023-01-06] MEDS: allopurinol 100 mg Tablet PO (09:11)
[2023-01-06] MEDS: venlafaxine ER (24HR) 150 mg Capsule PO (09:11)
[2023-01-06] MEDS: sucralfate 1 gm Tablet PO (09:11)
[2023-01-06] MEDS: gabapentin 300 mg Capsule 600 MG PO (09:11)
[2023-01-06] MEDS: pantoprazole 40 mg SDV IVP (09:14)
[2023-01-06] MEDS: vancomycin 1,500 MG/300 ML PIGGYBACK 200 MG IV (09:15)
--- NOTE | 2023-01-06 09:28 | PM.PN ---
Subjective Subjective: Nursing reports blood pressures were low through the night and this morning. Levophed drip was started. Patient did have increased oxygen requirement and was started on nonrebreather. Patient complains of some chest and back pain this morning. Vitals/I&O/Wt Last Vital Signs Temp 98.3 F 01/06/23 04:00 Pulse 81 01/06/23 05:41 Resp 22 H 01/06/23 04:00 BP 93/47 01/06/23 04:00 Pulse Ox 98 01/06/23 04:00 O2 Del Method Non-Rebreather 01/06/23 04:00 O2 Flow Rate 12 01/06/23 02:00 01/05/23 01/06/23 01/06/23 22:59 06:59 14:59 Intake Total 1050.000 / 1600.000 50 / 50 Output Total 550 / 850 1225 / 2075 Balance 500.000 / 750.000 -1225 / -475.000 50 / 50 Weight last 48 hrs Weight 278 lb 12.8 oz Physical Exam Narrative: General: Cooperative patient in no apparent distress. Well developed. HEENT: Normocephalic, Atraumatic. External ears normal. Nasal passages patent without drainage. MMM. Heart: RRR. Resp: No respiratory distress, no use of accessory muscles. 6 L nasal cannula. Lungs with scattered rails. Abd: Soft, non-tender. Non-distended. Extremities: 1+ lower extremity edema. Skin: No rash or lesions on exposed areas. Neuro: No focal motor or sensory loss. Gait is normal. Urinary Catheter Management: [place]: Cath Placed During This Visit: yes Reason for Continuing Indwelling Catheter: Accurate Measurement of Urinary Output in Critically Ill Patients Urinary Catheter Date of Insertion: 01/03/23 Urinary Catheter Time of Insertion: 21:35 Data 01/06/23 02:32 01/06/23 02:32 Micro: Microbiology 01/03/23 21:32 Urine Culture - Preliminary Urine Catheterized A&P Assessment and plan (1) Healthcare-associated pneumonia: (2) Atrial fibrillation with rapid ventricular response: (3) Acute anemia: (4) Hypomagnesemia: (5) Physical deconditioning: (6) Morbid obesity: (7) Chronic anticoagulation: (8) Acute GI bleeding: (9) Acute kidney injury: (10) Acute blood loss anemia: (11) UTI due to extended-spectrum beta lactamase (ESBL) producing Escherichia coli: Plan 77-year-old female admitted for A-fib with RVR, blood loss anemia. Continue close ICU monitoring. Family is planning to come in and visit with the patient today. Patient has suggested several times that she is tired and ok with seeing [facility] . Heart rate is stable. Pressures were low overnight with systolics down to 60-80. Currently on Levophed. Off amiodorone. Hgb up to 8.7 after 1 unit of blood yesterday. We will continue to hold anticoagulation for now due to concern for GI bleed. Continue vancomycin and meropenem for concern of healthcare associated pneumonia and UTI with h/o ESBL. Cultures are pending and currently negative. RAAT, O2 protocol. Continue Duonebs q6h Strict I's and O's. Check stool for occult blood. Continue Carafate and twice daily Protonix. Magnesium at 1.5 today. Procalcitonin was 0.10. WBC count has decreased to 13.6. Recheck a.m. labs. Code Status: DNR/DNI IVF: None DVT PPx: SCDs GI PPx: Protonix ABx: Meropenem Diet: Cardiac Discharge plan: TBD. Coding Level of Care Code Acute Code for [facility] Fwd Diagnoses Healthcare-associated pneumonia J18.9 Atrial fibrillation with rapid ventricular response I48.91 Acute anemia D64.9 Hypomagnesemia E83.42 Physical deconditioning R53.81 Morbid obesity E66.01 Chronic anticoagulation Z79.01 Acute GI bleeding K92.2 Acute kidney injury N17.9 Acute blood loss anemia D62 UTI due to extended-spectrum beta lactamase (ESBL) producing Escherichia coli N39.0; B96.29; Z16.12
--- NOTE | 2023-01-06 10:13 | PC.NURSE ---
blood pressure down at this time ... prior doctor called levophed gtt started and family called at this time
--- NOTE | 2023-01-06 11:04 | PC.NURSE ---
av change and adls done prior family here talked with doctor pt related she wants to go home with family and hospice and go see [facility]
--- NOTE | 2023-01-06 13:53 | PM.DCS ---
Discharge Providers Date of Admission: 01/03/23 18:31 Date of Discharge: January 06, 2023 Attending Provider at Admission: Garth Vuong MD Attending Provider at Discharge: Ryne Washington DO Primary Care Provider: Stefany Jaime MD Diagnoses at Discharge Discharge Diagnosis (1) Healthcare-associated pneumonia: Status: Acute (2) Atrial fibrillation with rapid ventricular response: Status: Acute (3) Acute anemia: Status: Acute (4) Hypomagnesemia: Status: Acute (5) Physical deconditioning: Status: Acute (6) Morbid obesity: Status: Acute (7) Chronic anticoagulation: Status: Acute Permanent problem details: Eliquis discontinued secondary to GI bleeding and severe anemia (8) Acute GI bleeding: Status: Suspected (9) Acute kidney injury: Status: Resolved (10) Acute blood loss anemia: Status: Inactive Permanent problem details: Patient had only 1 bowel movement while in hospital. Refused any endoscopy for evaluation. Transfusion was allowed. She received 4 units. (11) UTI due to extended-spectrum beta lactamase (ESBL) producing Escherichia coli: Status: Acute Reason for Visit Reason for Visit: Syncope/ RVR Hospital Course Hospital Course Nanci Sandoval is a 77 year old [facility] with past medical history of atrial fibrillation, struct of sleep apnea, interstitial lung disease, type 2 diabetes mellitus, DVT on Eliquis was brought into the ER today because of altered mental status, coffee ground emesis. ? As [facility] the [facility] the [facility] patient she had episode of unresponsiveness and coffee ground emesis. She was noted to be anemic on admission with Hgb to 9.1. Family was at bedside patient was apparently at [facility] ago for symptoms consistent with congestive heart failure and was treated with IV diuretics.? She had a [place] catheter which was placed at that time and has not been changed since then.? Patient has been having difficulty with constipation.? 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 She has also been followed up at wound care for an open wound which is improving as per the daughters at bedside on right second great toe.? In the ER patient was found to be somnolent, heart rate of more than 130 with blood pressure 116/75, hypoxic needing up to 4 L of O2 supplementation.? She was given IV Levaquin, 1 L of fluid bolus and started on Cardizem drip. When seen in the ICU patient is awake and alert to self and being in the hospital.? He is able to have complete conversation without any difficulty in breathing.? Currently on 3 L saturating 94% with heart rate of 120 to 130 bpm on Cardizem drip of 12.5.? Patient has not taken any of her home medications today. Over the course of her hospitalization, she was noted to be in atrial fibrillation and having frequent runs of v-tach. She required pressors to maintain her BP. She was initially started on Cardizem drip, but was unable to maintain this due to her BP. Discussed with family and patient in regards to her prognosis. Patient tells me multiple times that she is ready to go home and see [facility]. She states that she is interested in hospice and after further discussion, she states that this is her wishes. Hospice was able to visit with the patient today and she is requesting discharge home with their service. Physical Exam Narrative: General: Cooperative patient in no apparent distress. Well developed. HEENT: Normocephalic, Atraumatic. External ears normal. Nasal passages patent without drainage. MMM. Heart: RRR. Resp: No respiratory distress, no use of accessory muscles. 6 L nasal cannula. Lungs with scattered rails. Abd: Soft, non-tender. Non-distended. Extremities: 1+ lower extremity edema. Skin: No rash or lesions on exposed areas. Neuro: No focal motor or sensory loss. Gait is normal. Urinary Catheter Management: [place]: Cath Placed During This Visit: yes Reason for Continuing Indwelling Catheter: Accurate Measurement of Urinary Output in Critically Ill Patients Urinary Catheter Date of Insertion: 01/03/23 Urinary Catheter Time of Insertion: 21:35 Discharge Data Studies Completed and Pending Completed Studies During Hospitalization Category Date Time Status CT chest abdomen pelvis [CT chest abdpel w/*[id number] Cat Scan 01/03/23 17:59 Completed ] Stat XR chest 1V portable [id number] Stat Exams 01/03/23 15:42 Completed XR chest 1V portable [id number] Stat Exams 01/06/23 02:19 Completed Pending at discharge Category Date Time Status Blood Culture Stat Lab 01/03/23 17:55 Results Clostridioides Difficile PCR Routine Lab 01/04/23 10:29 Ordered Enteric Bacterial Panel by PCR Routine Lab 01/04/23 10:29 Ordered Enteric Parasite Panel by PCR Routine Lab 01/04/23 10:29 Ordered Occult Blood Stool [Immunochemical Fecal OCB] Routine Lab 01/03/23 17:31 Uncollected Sputum Culture and Gram Stain Stat Lab 01/03/23 18:42 Uncollected Radiology Impressions Chest/Abdomen/Pelvis CT 01/03/23 17:59 IMPRESSION: 1. Increased ground-glass and interstitial opacities in both lungs most likely represents multilobar pneumonia with scarring. IMPRESSION: 1. Stable 5 mm calculus in the distal right ureter with trace hydronephrosis. Chest X-Ray 01/06/23 02:19 IMPRESSION: Patchy interstitial prominence lower lobe atelectasis. Right hilar prominence. Please correlate with recently performed CT of the thorax. Laboratory Results WBC 13.70 10^3/uL (3.29-11.43) H 01/06/23 02:32 RBC 2.75 10^6/uL (3.85-5.65) L 01/06/23 02:32 Hgb 8.70 g/dL (11.27-16.99) L 01/06/23 02:32 Hct 28.6 % (36-47) L 01/06/23 02:32 MCV 104.0 fl (85-98) H 01/06/23 02:32 MCH 31.6 pg (27-33) 01/06/23 02:32 MCHC 30.4 g/dL (30-55) 01/06/23 02:32 RDW 21.5 % (12.1-15.1) H 01/06/23 02:32 Plt Count 205 10^3/cmm (157-399) 01/06/23 02:32 MPV 10.8 fL (7.4-10.4) H 01/06/23 02:32 Neut % (Auto) 69.7 % 01/06/23 02:32 Lymph % (Auto) 20.3 % 01/06/23 02:32 [place] % (Auto) 5.6 % 01/06/23 02:32 Eos % (Auto) 3.0 % 01/06/23 02:32 Baso % (Auto) 0.4 % 01/06/23 02:32 Neut # (Auto) 9.55 10^3/uL (1.8-7.7) H 01/06/23 02:32 Lymph # (Auto) 2.8 10^3/uL (0.8-4.8) 01/06/23 02:32 [place] # (Auto) 0.8 10^3/uL (0.2-0.9) 01/06/23 02:32 Eos # (Auto) 0.4 10^3/uL (0.0-0.8) 01/06/23 02:32 Baso # (Auto) 0.1 10^3/uL (0.0-0.1) 01/06/23 02:32 Nucleated RBC % (auto) 0.2 % 01/06/23 02:32 Nucleated RBCs # 0.0 /100WBC 01/06/23 02:32 PT 18.30 SECONDS (12.1-14.9) H 01/03/23 15:50 INR 1.46 (0.8-1.2) H 01/03/23 15:50 APTT 32.8 SECONDS (23.9-36.7) 01/04/23 08:55 Specimen Type Arterial 01/03/23 17:08 Sample Site Radial, left 01/03/23 17:08 ABG pH 7.41 (7.35-7.45) 01/03/23 17:08 ABG pCO2 56.1 mmHg (35-45) H 01/03/23 17:08 ABG pO2 86.6 mmHg (80.0-100.0) 01/03/23 17:08 ABG HCO3 35.1 mmol/L (22-26) H 01/03/23 17:08 ABG O2 Saturation 97.0 01/03/23 17:08 ABG Base Excess 9.2 mmol/L (-2.0-2.0) H 01/03/23 17:08 Real Test Pos 01/03/23 17:08 A-a O2 Gradient Not Reportable 01/03/23 17:08 Hematocrit 26.4 % (37-47) L 01/03/23 17:08 Hgb O2 Saturation 95.1 % (95-100) 01/03/23 17:08 Carboxyhemoglobin 1.6 %THgb (0.4-20.1) 01/03/23 17:08 Methemoglobin 0.3 % (0.4-1.5) L 01/03/23 17:08 Total Hemoglobin 8.6 g/dL (12-16) L 01/03/23 17:08 Sodium 141.0 mmol/L (131-143) 01/03/23 17:08 Potassium 3.9 mmol/L (3.5-5.0) 01/03/23 17:08 Glucose 152.0 mg/dL (70-115) H 01/03/23 17:08 Ionized Calcium 1.3 mmol/L (1.1-1.4) 01/03/23 17:08 O2 Delivery Device Nc 01/03/23 17:08 O2 Liters/Min 5.5 % 01/03/23 17:08 Registration Coordinator ID Cak 01/03/23 17:08 Sodium 136 mmol/L (136-145) 01/06/23 02:32 Potassium 3.7 mmol/L (3.5-5.1) 01/06/23 02:32 Chloride 96 mmol/L (98-107) L 01/06/23 02:32 Carbon Dioxide 36 mmol/L (22-29) H 01/06/23 02:32 Anion Gap 7.7 (5-19) 01/06/23 02:32 BUN 27 mg/dL (8-23) H 01/06/23 02:32 Creatinine 0.9 mg/dL (0.5-0.9) 01/06/23 02:32 GFR Calculation Not Reportable 01/06/23 02:32 Glucose 113 mg/dL (65-115) 01/06/23 02:32 Estimat Average Glucose 94 01/04/23 08:55 Hemoglobin A1c 4.9 % (4.0-6.0) 01/04/23 08:55 Calculated Osmolality 288 mOsm/kg (285-295) 01/06/23 02:32 Lactic Acid 1.8 mmol/L (0.5-2.2) 01/03/23 15:50 Calcium 8.7 mg/dL (8.5-10.5) 01/06/23 02:32 Phosphorus 2.2 mg/dL (2.5-4.5) L 01/06/23 02:32 Magnesium 1.5 mg/dL (1.7-2.3) L 01/06/23 02:32 Ferritin 61 ng/mL (15-150) 01/03/23 18:14 Total Bilirubin 0.2 mg/dL (0.15-1.2) 01/06/23 02:32 AST 18 U/L (0-32) 01/06/23 02:32 ALT 10 U/L (0-33) 01/06/23 02:32 Alkaline Phosphatase 62 U/L (35-105) 01/06/23 02:32 Troponin T Baseline 24 ng/L (0-10) H 01/03/23 15:50 Troponin T 120 Minute 25.01 ng/L (0-10) H 01/03/23 18:14 Delta Troponin T 1.01 ABS# (0-10) 01/03/23 18:14 Troponin T Hi Sens 6Hr 26.27 ng/L (0-10) H 01/03/23 20:50 Troponin T Hi Sens 6Hr Delta 2.27 ng/L (0-12) 01/03/23 20:50 C-Reactive Protein 15.0 mg/L (0.0-4.9) H 01/03/23 18:14 NT-Pro-B Natriuret Pep 3344 pg/mL (0-450) H 01/06/23 02:32 Total Protein 5.5 g/dL (6.6-8.7) L 01/06/23 02:32 Albumin 2.6 g/dL (3.5-5.2) L 01/06/23 02:32 Globulin 2.9 g/dL (1.3-4.6) 01/06/23 02:32 Triglycerides 144 mg/dL (0-150) 01/04/23 08:55 Cholesterol 105 mg/dL (0-200) 01/04/23 08:55 LDL Cholesterol, Calc 42 mg/dL (50-129) L 01/04/23 08:55 HDL Cholesterol 34 mg/dL (60-100) L 01/04/23 08:55 LDL/HDL Ratio 1.24 RATIO (0.00-3.22) 01/04/23 08:55 Cholesterol/HDL Ratio 3.09 mg/dL (0.0-4.40) 01/04/23 08:55 Procalcitonin 0.10 ng/mL (0-0.5) 01/03/23 18:14 TSH 0.71 uIU/mL (0.27-4.20) 01/04/23 08:55 Urine Color Yellow (Yellow) 01/03/23 21:32 Urine Appearance Clear (CLEAR) 01/03/23 21:32 Urine pH 5 (5-7) 01/03/23 21:32 Ur Specific [place] 1.010 (1.005-1.030) 01/03/23 21:32 Urine Protein Neg (Negative) 01/03/23 21:32 Urine Glucose (UA) Norm (Normal) 01/03/23 21:32 Urine Ketones Negative (Negative) 01/03/23 21:32 Urine Blood Neg (Negative) 01/03/23 21:32 Urine Nitrate Negative (Negative) 01/03/23 21:32 Urine Bilirubin Neg (Negative) 01/03/23 21:32 Urine Urobilinogen Neg mg/dL (Negative) 01/03/23 21:32 Ur Leukocyte Esterase Negative (Negative) 01/03/23 21:32 Nasal Influ A H1 2009 PCR Not detected (NOT DETECT) 01/05/23 21:20 Vancomycin Trough 14.5 ug/mL (10-15) 01/06/23 07:55 Adenovirus (PCR) Not detected (NOT DETECT) 01/05/23 21:20 C. pneumoniae DNA (PCR) Not detected (NOT DETECT) 01/05/23 21:20 Coronavirus 229E (PCR) Not detected (NOT DETECT) 01/05/23 21:20 Human Metapneumovir PCR Not detected (NOT DETECT) 01/05/23 21:20 Influenza A (H1) PCR Not detected (NOT DETECT) 01/05/23 21:20 Influenza A (H3) PCR Not detected (NOT DETECT) 01/05/23 21:20 Influenza Type A (PCR) Not detected (NOT DETECT) 01/05/23 21:20 Influenza Type B (PCR) Not detected (NOT DETECT) 01/05/23 21:20 M. pneumoniae (PCR) Not detected (NOT DETECT) 01/05/23 21:20 Parainfluenza 1 (PCR) Not detected (NOT DETECT) 01/05/23 21:20 Parainfluenza 2 (PCR) Not detected (NOT DETECT) 01/05/23 21:20 Parainfluenza 3 (PCR) Not detected (NOT DETECT) 08/25/23 21:20 Parainfluenza 4 (PCR) Not detected (NOT DETECT) 01/05/23 21:20 RSV Type A (PCR) Not detected (NOT DETECT) 01/05/23 21:20 RSV Type B (PCR) Not detected (NOT DETECT) 01/05/23 21:20 Entero/Rhino (PCR) Not detected (NOT DETECT) 01/05/23 21:20 SARS-CoV-2 (PCR) Not detected (NOT DETECT) 01/05/23 21:20 Blood Type O Positive 01/05/23 11:55 Rho(D) Type Positive 01/05/23 11:55 Antibody Screen Negative 01/05/23 11:55 Crossmatch See Detail 01/05/23 11:55 Vitals Last Vital Signs Temp 98.3 F 01/06/23 04:00 Pulse 98 01/06/23 12:00 Resp 34 H 01/06/23 12:00 BP 103/74 01/06/23 12:00 Pulse Ox 89 L 01/06/23 12:00 O2 Del Method High Flow Nasal Cannula 01/06/23 09:44 O2 Flow Rate 6 01/06/23 09:44 Discharge Plan Discharge Patient Disposition: Hospice - Home Condition: Stable Prescriptions: Continued (DME) lancets Misc See Rx Instructions .ROUTE .MEDSUPPLY Qty: 50 Rx Instructions: As directed (DME) blood sugar diagnostic Strip See Rx Instructions .ROUTE .MEDSUPPLY Qty: 10 Rx Instructions: As directed ertapenem [Invanz] 1 gram recon soln 1 g IM .Q7days febuxostat [Uloric] 40 mg tablet 40 mg PO DAILY Qty: 30 3RF ferrous sulfate 325 mg (65 mg iron) tablet,delayed release (DR/EC) 325 mg PO DAILY All Day Allergy (cetirizine) 10 mg capsule 10 mg PO DAILY Qty: 90 3RF montelukast 10 mg tablet 10 mg PO DAILY Qty: 30 6RF potassium chloride 10 mEq tablet extended release 10 meq PO DAILY Qty: 30 11RF venlafaxine 150 mg capsule,extended release 24hr 150 mg PO DAILY Qty: 90 3RF furosemide 80 mg tablet 40 mg PO BID allopurinol 100 mg tablet 100 mg PO DAILY metoprolol tartrate 25 mg tablet 25 mg PO BID aspirin [Adult Aspirin Regimen] 81 mg tablet,delayed release (DR/EC) 81 mg PO DAILY losartan 100 mg tablet 100 mg PO DAILY Qty: 90 3RF Protonix 40 mg tablet,delayed release (DR/EC) 40 mg PO BID Qty: 60 1RF metformin 1,000 mg tablet 1,000 mg PO BID 30 Days Qty: 60 11RF trazodone 50 mg Tablet 50 mg PO QPM bisacodyl [Dulcolax (bisacodyl)] 10 mg Suppository 10 mg CO DAILY PRN (Reason: Constipation) gabapentin 300 mg capsule 600 mg PO BID acetaminophen 325 mg Capsule 650 mg PO QID PRN (Reason: Pain) calcium carbonate-vitamin D3 [Calcium 600 + D(3)] 600 mg-10 mcg (400 unit) Tablet 1 tab PO DAILY budesonide-formoterol 160-4.5 mcg/actuation Hfa Aerosol Inhaler 2 puff INHALATION BID menthol-zinc oxide [Calmoseptine] 0.44-20.6 % Ointment 1 applic TOPICAL QID PRN (Reason: PREVENTION) Eliquis 5 mg tablet 5 mg PO BID methotrexate 2.5 mg/mL Solution 15 mg PO Q7D Rx Instructions: ON SUNDAY folic acid 1 mg Tablet 1 mg PO DAILY 30 Days Qty: 30 0RF diltiazem HCl 240 mg capsule,extended release 24hr 240 mg PO DAILY levofloxacin 750 mg tablet 750 mg PO DAILY Discharge Orders: Discharge Order (Routine); Ordered 01/06/23 Ordered By: Ryne Washington Referrals: [facility] [Outside] Stefany Jaime MD [Primary Care Provider] - Discharge Attestations Time Spent in Discharge Care*: greater than 30 min Specific Discharge Activities: educating patient, educating and/or supporting family/caregiver, discussing with pcp/other providers, discussing with case specialist/social workers/dc planners, documenting/other paperwork and evaluating patient/reviewing data Quality Metrics Clinical Quality Measures [ No reported AMI, CVA or VTE this stay] Coding Level of Care Code Acute Code for Chg Fwd Total time (in minutes) for Discharge: 42 Diagnoses Healthcare-associated pneumonia J18.9 Atrial fibrillation with rapid ventricular response I48.91 Acute anemia D64.9 Hypomagnesemia E83.42 Physical deconditioning R53.81 Morbid obesity E66.01 Chronic anticoagulation Z79.01 Acute GI bleeding K92.2 Acute kidney injury N17.9 Acute blood loss anemia D62 UTI due to extended-spectrum beta lactamase (ESBL) producing Escherichia coli N39.0; B96.29; Z16.12
--- NOTE | 2023-01-06 15:13 | PC.NURSE ---
awaiting transport home for hospice care... via [facility]
[2023-01-06] MEDS: morphine 4 mg/mL SDV 1 mL 2 MG IVP (16:59)
[2023-01-06] MEDS: morphine 10 mg/0.5 mL oral liq UD 5 MG PO (17:13)
--- NOTE | 2023-01-06 18:24 | PC.NURSE ---
awaiting transport home at this time to hospice
[2023-01-07 16:33] LABS: Glucose Point of Care 106 mg/dL (70-110)
== END 2023-01-06 19:05 | disposition hospice, home (50) | DRG 194 ==
LOC: ER 16:56 → ICU 18:31
PROVIDERS: Admitting Provider Family Medicine; Emergency Provider Emergency Medicine; PCP Family Medicine; Visit Provider Family Medicine
DX: J18.9 Pneumonia, unspecified organism (principal); D62 Acute posthemorrhagic anemia; K92.0 Hematemesis; Z16.12 Extended spectrum beta lactamase (ESBL) resistance; Z68.41 Body mass index [BMI] 40.0-44.9, adult; N39.0 Urinary tract infection, site not specified; N17.9 Acute kidney failure, unspecified; Y95 Nosocomial condition; I48.91 Unspecified atrial fibrillation; G47.33 Obstructive sleep apnea (adult) (pediatric); E11.9 Type 2 diabetes mellitus without complications; Z86.718 Personal history of other venous thrombosis and embolism; K59.09 Other constipation; Z96.0 Presence of urogenital implants; Z87.440 Personal history of urinary (tract) infections; Z51.5 Encounter for palliative care; Z79.01 Long term (current) use of anticoagulants; E66.01 Morbid (severe) obesity due to excess calories; E87.6 Hypokalemia; B96.20 Unspecified Escherichia coli [E. coli] as the cause of diseases classified elsewhere; Z66 Do not resuscitate; M81.0 Age-related osteoporosis without current pathological fracture; M10.9 Gout, unspecified; M79.7 Fibromyalgia; E83.42 Hypomagnesemia; L40.50 Arthropathic psoriasis, unspecified
CPT/HCPCS: 36415; 36416; 36430; 36600; 51702; 71045; 71260; 74177; 80051; 80053; 80061; 80202; 81003; 82330; 82728; 82805; 82962; 83036; 83605; 83735; 83880; 84100; 84145; 84443; 84484; 85014; 85018; 85025; 85610; 85730; 86140; 86403; 86850; 86900; 86920; 87040; 87086; 87486; 87581; 87633; 87641; 93005; 94640; 94664; 96365; 96366; 96376; 99285; C9113; J0282; J1160; J1940; J2185; J2270; J2543; J3370; J3420; J3475; J3490; J7030; J7060; J7614; J7626; J7644; P9016; Q9967